=== PATIENT | male | born 1950 | race Hispanic/Latino ===

== ENCOUNTER 2016-07-16 21:08 | Emergency (ER) | payer MEDICARE, MEDICAID ==
[2016-07-16 21:08] VITALS: BMI 21.2
[2016-07-16 21:24] VITALS: BP 121/79; PULSE 84; RESP 16; TEMP 98.2; O2SAT 99
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
== END 2016-07-16 23:37 | disposition home or self-care (01) ==
LOC: H.ER 21:08
DX: M25.511 Pain in right shoulder (principal); G89.29 Other chronic pain; C90.00 Multiple myeloma not having achieved remission; Z71.6 Tobacco abuse counseling
CPT/HCPCS: 96372; 99282; J1885

== ENCOUNTER 2016-07-17 16:51 | Emergency (ER) | payer MEDICARE ==
[2016-07-17 16:51] VITALS: BMI 21.2
[2016-07-17 16:56] VITALS: BP 136/85; PULSE 90; RESP 18; TEMP 98.2; O2SAT 99
--- NOTE | 2016-07-17 17:25 | ED PDOC ---
Upper Extremity Pain/Injury Time Seen by Provider: 07/17/16 17:11 Chief Complaint (Nursing): Upper Extremity Problem/Injury Chief Complaint (Provider): shoulder injury History Per: Patient History/Exam Limitations: no limitations Additional Complaint(s): 65yo M in ED with injury to right shoulder(chronic pain) was seen in ED yesterday for same complaints and Rx and given in ED torodol. admit to having relief but today pain worsened. PT was refereed to pain mgnt, but has not made an appt. pt states she is homeless. denies additional complaints. Past Medical History Reviewed: Historical Data, Nursing Documentation, Vital Signs Vital Signs: Last Vital Signs Temp 98.2 F 07/17/16 16:53 Pulse 90 07/17/16 16:53 Resp 18 07/17/16 16:53 BP 136/85 07/17/16 16:53 Pulse Ox 99 07/17/16 16:53 - Medical History PMH: Back Problems, Bronchitis, COPD, Fractures (left scapula/left ribs), GERD, Chronic Pain Denies: HIV, Chronic Kidney Disease - Surgical History Surgical History: Hernia Repair - Family History Family History: States: Unknown Family Hx - Immunization History Hx Tetanus Toxoid Vaccination: Yes (more than 5 years ago) Hx Influenza Vaccination: No Hx Pneumococcal Vaccination: No - Home Medications Home Medications: Ambulatory Orders Medication Instructions Recorded Amoxicillin/Clavulanate [Augmentin 1 tab PO BID #20 tab 04/26/16 875 MG-125 MG Tab] oxyCODONE/Acetaminophen [Percocet 1 ea PO Q6 #20 tab 05/01/16 5/325 mg Tab] Meclizine [Antivert] 25 mg PO Q6 PRN #30 tab 05/25/16 traMADol [Ultram] 50 mg PO TID PRN #8 tab 07/16/16 Acetaminophen [Tylenol 325mg tab] 650 mg PO Q4 #30 tab 07/17/16 - Allergies Allergies/Adverse Reactions: Allergies Allergy/AdvReac Type Severity Reaction Status Date / Time No Known Allergies Allergy Verified 07/16/16 21:22 Review of Systems ROS Statement: Except As Marked, All Systems Reviewed And Found Negative Musculoskeletal: Positive for: Shoulder Pain Physical Exam - Reviewed Nursing Documentation Reviewed: Yes Vital Signs Reviewed: Yes - Physical Exam Appears: Positive for: Non-toxic, No Acute Distress, Uncomfortable Head Exam: Positive for: ATRAUMATIC, NORMAL INSPECTION, NORMOCEPHALIC Skin: Positive for: Normal Color, Warm, DRY Cardiovascular/Chest: Positive for: Regular Rate, Rhythm Respiratory: Positive for: CNT, Normal Breath Sounds Extremity: Positive for: Other (right shoulder. dec ROM due to pain, no swelling noted no defomrity noted. no clavicular tenderness noted. axillary nerve intact. no significant weakness noted to arm. ) Neurologic/Psych: Positive for: Alert, Oriented - ECG O2 Sat by Pulse Oximetry: 99 Medical Decision Making Medical Decision Making: pt given Tylenol and Rx for it. Pt advised to f.u with pain mgnt and continue f.u with pmd given endocrinology physician contact and strongly advised to f.u with orthopedics. pt seems to understand and is agreeable to plan. Disposition - Clinical Impression Clinical Impression: Shoulder pain - Patient ED Disposition Is Patient to be Admitted: No Counseled Patient/Family Regarding: Diagnosis, Need For Followup, Rx Given - Disposition Referrals: [facility] [place] [Outside] [facility] [Outside] [facility] [Provider Group] [facility] [Provider Group] Disposition: Routine/Home Disposition Time: 17:35 Condition: STABLE Prescriptions: Acetaminophen [Tylenol 325mg tab] 650 mg PO Q4 #30 tab Instructions: Shoulder Pain (ED)
== END 2016-07-17 19:29 | disposition home or self-care (01) ==
LOC: H.ER 16:51
DX: M25.511 Pain in right shoulder (principal)

== ENCOUNTER 2016-11-09 21:05 | Observation (INO) | payer MEDICARE, MEDICAID ==
[2016-11-09 21:05] VITALS: BMI 21.2
[2016-11-09] MEDS ORDERED: Morphine 4 MG/ML VIAL IVP STA (21:41)
[2016-11-09] MEDS ORDERED: Sodium Chloride 0.9% 100 ML ONE (21:46)
[2016-11-09] MEDS ORDERED: Iodixanol 320 MG/ML 100 ML BOTTLE IV ONE (21:46)
[2016-11-09 22:03] LABS: BASO % 0.3 % (0.0-2.0); EOS # 0.3 K/uL (0.0-0.7); EOS % 4.2 % (0.0-4.0); HEMOGLOBIN 12.9 g/dL (12.0-18.0); LYMPH # 2.6 K/uL (1.0-4.3); LYMPH % 39.6 % (20.0-40.0); MEAN CELL VOLUME 99.4 fl (80.0-94.0); MEAN CORPUSCULAR HEMOGLOBIN 32.7 pg (27.0-31.0); MEAN CORPUSCULAR HGB CONC 32.9 g/dL (33.0-37.0); MONO # 1.2 K/uL (0.0-0.8); MONO % 18.8 % (0.0-10.0); NEUT # 2.4 K/uL (1.8-7.0); NEUT % 37.1 % (50.0-75.0); NRBC % 0.1 % (0.0-0.0); RBC 3.95 Mil/uL (4.40-5.90); RED CELL DISTRIBUTION WIDTH 14.3 % (11.5-14.5); WHITE BLOOD COUNT 6.5 K/uL (4.8-10.8)
--- NOTE | 2016-11-09 22:14 | ED PDOC ---
HPI: Chest Pain Time Seen by Provider: 11/09/16 21:17 Chief Complaint (Nursing): Chest Pain Chief Complaint (Provider): Chest Pain History Per: Patient History/Exam Limitations: no limitations Onset/Duration Of Symptoms: Days (x1 day) Current Symptoms Are (Timing): Still Present Additional Complaint(s): 66 y/o male with a past medical history of "abdominal aortic aneurysm" and " bone disorder" who presents to the emergency department with a complaint of an on/off chest pain x1 day. Associated with shortness of breath. Reports chest pain is non exertional and non-radiating. Patient is also complaining of bone pain which is chronic. Admits to smoking 10 cigarettes a day for the past 50 years. Denies any further medical complaints. Past Medical History Reviewed: Historical Data, Nursing Documentation, Vital Signs Vital Signs: Last Vital Signs Temp 97.5 F L 11/10/16 12:12 Pulse 60 11/10/16 12:12 Resp 20 11/10/16 12:12 BP 125/73 11/10/16 12:12 Pulse Ox 100 11/10/16 12:12 - Medical History PMH: Back Problems, Bronchitis, COPD, Fractures (left scapula/left ribs), GERD, Chronic Pain Denies: HIV, Chronic Kidney Disease Other PMH: Aortic Aneurysm and bone disorder - Surgical History Surgical History: Hernia Repair - Family History Family History: States: Unknown Family Hx - Social History Current smoker - smoking cessation education provided: Yes (Heavy Smoker >10 cigarettes daily) Alcohol: None Drugs: Denies - Immunization History Hx Tetanus Toxoid Vaccination: Yes (more than 5 years ago) Hx Influenza Vaccination: No Hx Pneumococcal Vaccination: No - Home Medications Home Medications: Ambulatory Orders Medication Instructions Recorded No Known Home Med 11/10/16 - Allergies Allergies/Adverse Reactions: Allergies Allergy/AdvReac Type Severity Reaction Status Date / Time No Known Allergies Allergy Verified 07/16/16 21:22 Review of Systems ROS Statement: Except As Marked, All Systems Reviewed And Found Negative Cardiovascular: Positive for: Chest Pain Respiratory: Positive for: Shortness of Breath Musculoskeletal: Positive for: Other (Bone pain) Physical Exam - Reviewed Nursing Documentation Reviewed: Yes Vital Signs Reviewed: Yes - Physical Exam Appears: Positive for: Non-toxic (Ill appearing and thin), No Acute Distress. Negative for: Well Head Exam: Positive for: ATRAUMATIC, NORMAL INSPECTION, NORMOCEPHALIC Skin: Positive for: Normal Color, Warm, Dry ENT: Positive for: Normal ENT Inspection. Negative for: Pharyngeal Erythema Neck: Positive for: Normal, Supple Cardiovascular/Chest: Positive for: Regular Rate, Rhythm. Negative for: Murmur Respiratory: Positive for: Normal Breath Sounds. Negative for: Accessory Muscle Use, Respiratory Distress Gastrointestinal/Abdominal: Positive for: Normal Exam, Soft. Negative for: Tenderness Back: Positive for: Normal Inspection. Negative for: L CVA Tenderness, R CVA Tenderness Extremity: Positive for: Normal ROM. Negative for: Pedal Edema Neurologic/Psych: Positive for: Alert, Oriented - Laboratory Results Result Diagrams: 11/09/16 21:45 11/09/16 21:45 - ECG O2 Sat by Pulse Oximetry: 99 (RA) Pulse Ox Interpretation: Normal Medical Decision Making Medical Decision Making: Time: 21:41 Initial Impression: Acute coronary syndrome (ACS) and Abdominal aortic Aneurysm Initial Plan: --EKG --BMP --Drug Screen --Troponin I --PTT Prothrombin --Morphine 4 mg IVP --Supervisor [employer] --Angio Chest/Abdomen/Pelvis CT --Reevaluation 0000: CT: no acute pathology seen, given age and smoking, will admit for r/o ACS. Case d/w FP resident Dr. Mederos Scribe Attestation: Documented by Juhi Green, acting as a scribe for Baltazar Soto MD. Provider Scribe Attestation: All medical record entries made by the Scribe were at my direction and personally dictated by me. I have reviewed the chart and agree that the record accurately reflects my personal performance of the history, physical exam, medical decision making, and the department course for this patient. I have also personally directed, reviewed, and agree with the discharge instructions and disposition. Disposition - Clinical Impression Clinical Impression: Chest pain - Disposition Disposition Time: 00:00 Condition: GOOD
[2016-11-09 22:21] LABS: BLOOD UREA NITROGEN 27 mg/dl (9-20); CALCIUM 8.8 mg/dL (8.4-10.2); GFR AFRICAN-AMERICAN > 60; GFR NON-AFRICAN AMERICAN > 60
[2016-11-09 22:22] LABS: PROTHROMBIN TIME 12.2 Seconds (9.8-13.1)
[2016-11-09 22:23] LABS: INR 1.1 (0.9-1.2); PARTIAL THROMBOPLASTIN TIME 27.1 Seconds (25.6-37.1)
--- NOTE | 2016-11-10 01:53 | CT ---
EXAM: CT Angiography Chest With Intravenous Contrast CLINICAL HISTORY: 66 years old, male; Pain; Chest pain; Radiating; Abdominal pain; Other: HX of aaa; Additional info: HX of aortic aneurysm p/w cp and SOB TECHNIQUE: Axial computed tomographic angiography images of the chest with intravenous contrast using pulmonary embolism protocol. This CT exam was performed using one or more of the following dose reduction techniques: automated exposure control, adjustment of the mA and/or kV according to patient size, and/or use of iterative reconstruction technique. MIP reconstructed images were created and reviewed. Coronal and sagittal reformatted images were created and reviewed. CONTRAST: 99 mL of [id number] administered intravenously. COMPARISON: CT - 04/10/2016 FINDINGS: Limitations: Motion artifact - mild to moderate. Pulmonary arteries: No definite pulmonary embolism. Aorta: Ectasia of ascending thoracic aorta, up to 4.2 cm in diameter, stable. No dissection. Lungs: Mild peripheral atelectasis/scarring. No consolidation. Pleural space: No significant effusion. No pneumothorax. Heart: No cardiomegaly. No significant pericardial effusion. Bones/joints: RIGHT shoulder arthroplasty. Deformities of superior endplate T4, T12 vertebral bodies, chronic. No acute fracture. Soft tissues: Unremarkable. Lymph nodes: No pathologically enlarged lymph nodes. IMPRESSION: 1. Ectasia of thoracic aorta, stable. No dissection. 2. Incidental/non-acute findings are described above. EXAM: CT Angiography Abdomen and Pelvis With Intravenous Contrast CLINICAL HISTORY: 66 years old, male; Pain; Chest pain; Radiating; Abdominal pain; Other: HX of aaa; Additional info: HX of aortic aneurysm p/w cp and SOB TECHNIQUE: Axial computed tomographic angiography images of the abdomen and pelvis with intravenous contrast. This CT exam was performed using one or more of the following dose reduction techniques: automated exposure control, adjustment of the mA and/or kV according to patient size, and/or use of iterative reconstruction technique. MIP reconstructed images were created and reviewed. Coronal and sagittal reformatted images were created and reviewed. CONTRAST: 99 mL of [id number] administered intravenously. COMPARISON: CT - 04/10/2016 FINDINGS: Limitations: Motion artifact - mild. VASCULATURE: Aorta: [id number] atherosclerotic disease. No aneurysm. No dissection. Celiac trunk and mesenteric arteries: No occlusion or significant stenosis. Renal arteries: Mild atherosclerotic disease. No occlusion or significant stenosis. Iliac arteries: Moderate atherosclerotic disease of iliac arteries. No occlusion or significant stenosis. Other vasculature: Retroaortic LEFT renal vein. ABDOMEN: Liver: Unremarkable. No mass. Gallbladder and bile ducts: No calcified stones. No ductal dilation. Pancreas: No ductal dilation. No mass. Spleen: No splenomegaly. Adrenals: No mass. Kidneys and ureters: Few too small to characterize lesions within kidneys. Several renal calculi. No hydronephrosis. Stomach and bowel: Apparent mild mural thickening of several jejunal loops. No associated inflammatory stranding. Segmental areas of underdistention of LEFT colon. No obstruction. Appendix: No definite findings to suggest acute appendicitis. PELVIS: Bladder: Unremarkable. No mass. Reproductive: Mildly enlarged prostate. ABDOMEN and PELVIS: Intraperitoneal space: No significant fluid collection. No free air. Bones/joints: Degenerative changes of spine. Deformities of superior endplate L1, inferior endplate L3 vertebral bodies, chronic. No acute fracture. Soft tissues: Unremarkable. Lymph nodes: No pathologically enlarged lymph nodes. IMPRESSION: 1. No abdominal aortic aneurysm. No dissection. 2. Possible mild enteritis. Clinical correlation is needed. 3. Incidental/non-acute findings are described above.
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
[2016-11-10 04:49] LABS: HDL CHOLESTEROL 26 MG/DL (30-70)
[2016-11-10 04:51] LABS: LDL CHOLESTEROL 93 mg/dL (0-129)
[2016-11-10 05:10] LABS: OPIATES, UR POSITIVE (NEGATIVE)
[2016-11-10 05:11] LABS: PHENCYCLIDINE, UR NEGATIVE (NEGATIVE)
[2016-11-10 05:12] LABS: BARBITURATES, UR NEGATIVE (NEGATIVE)
[2016-11-10 05:13] LABS: BENZODIAZEPINES, UR NEGATIVE (NEGATIVE)
[2016-11-10] MEDS ORDERED: Enoxaparin 40 mg Syringe SC SCH (09:00)
[2016-11-10] MEDS ORDERED: Pantoprazole 40 mg EC Tab PO SCH (09:00)
--- NOTE | 2016-11-10 10:49 | CP.PCM.CON ---
History of Present Illness - History of Present Illness History of Present Illness: 66 y/o male with a PMHx of Hep C, bronchitis, glaucoma, and precancerous bone marrow disease presented to [facility] ED with a 1 day history of chest pain and SOB. Pt reports he was resting when he felt it begin. Pain is located along the left sternal border, between Ribs 3-5 and is nonradiating. intermittent (episodes last ~2mins), sharp in character, does not change with respiration/position and does not have any alleviating or exacerbating factors. This is first such episode of such pain. Denies exertional chest pain. He is pain free this AM EKG: normal Troponin: neg Past Patient History - Infectious Disease Hx of Infectious Diseases: None - Past Medical History & Family History Past Medical History?: Yes - Past Social History Smoking Status: Light Smoker < 10 Cigarettes Daily - CARDIAC Hx Cardiac Disorders: No - PULMONARY Hx Respiratory Disorders: Yes Hx Bronchitis: Yes Hx Chronic Obstructive Pulmonary Disease (COPD): Yes - NEUROLOGICAL Hx Neurological Disorder: Yes - HEENT Hx Blind: Yes (LEFT EYE, DUE TO TRAUMA) Hx Glaucoma: Yes - RENAL Hx Chronic Kidney Disease: No - ENDOCRINE/METABOLIC Hx Endocrine Disorders: No - HEMATOLOGICAL/ONCOLOGICAL Hx Blood Disorders: No Hx AIDS: No Hx Human Immunodeficiency Virus (HIV): No - INTEGUMENTARY Hx Dermatological Problems: No - MUSCULOSKELETAL/RHEUMATOLOGICAL Hx Musculoskeletal Disorders: Yes Hx Falls: Yes Hx Fractures: Yes (left scapula/left ribs) - GASTROINTESTINAL Hx Gastrointestinal Disorders: No - GENITOURINARY/GYNECOLOGICAL Hx Genitourinary Disorders: No - PSYCHIATRIC Hx Psychophysiologic Disorder: No Hx Substance Use: No - SURGICAL HISTORY Hx Surgeries: Yes Hx Herniorrhaphy: Yes Other/Comment: "HERNIA". "ROTATOR REPAIRED". SKULL FX - ANESTHESIA Hx Anesthesia: Yes Hx Anesthesia Reactions: No Hx Malignant Hyperthermia: No Meds Allergies/Adverse Reactions: Allergies Allergy/AdvReac Type Severity Reaction Status Date / Time No Known Allergies Allergy Verified 07/16/16 21:22 - Medications Medications: Current Medications Acetaminophen (Tylenol 325mg Tab) 650 mg PO Q6 PRN PRN Reason: Pain, Mild (1-3) Enoxaparin Sodium (Lovenox) 40 mg SC DAILY AURELIO PRN Reason: Protocol Last Admin: 11/10/16 09:49 Dose: 40 mg Ondansetron HCl (Zofran Inj) 4 mg IVP Q6 PRN PRN Reason: Nausea/Vomiting Pantoprazole Sodium (Protonix Ec Tab) 40 mg PO DAILY AURELIO Last Admin: 11/10/16 09:49 Dose: 40 mg Tramadol HCl (Ultram) 50 mg PO Q6 PRN PRN Reason: Pain, moderate (4-7) Last Admin: 11/10/16 09:58 Dose: 50 mg Physical Exam - Constitutional Appears: Well - Head Exam Head Exam: NORMAL INSPECTION - Eye Exam Eye Exam: Normal appearance Pupil Exam: NORMAL ACCOMODATION - ENT Exam ENT Exam: Normal Exam - Respiratory Exam Respiratory Exam: NORMAL BREATHING PATTERN - Cardiovascular Exam Cardiovascular Exam: REGULAR RHYTHM Results - Vital Signs Recent Vital Signs: Last Vital Signs Temp 97.7 F 11/10/16 08:02 Pulse 55 L 11/10/16 08:02 Resp 18 11/10/16 08:02 BP 119/72 11/10/16 08:02 Pulse Ox 97 11/10/16 08:02 - Labs Result Diagrams: 11/09/16 21:45 11/09/16 21:45 Labs: Laboratory Results - last 24 hr 11/10/16 11/10/16 04:30 04:54 Troponin I < 0.0120 Triglycerides 69 D Cholesterol 137 LDL Cholesterol Direct 93 HDL Cholesterol 26 L Urine Opiates Screen Positive H Urine Methadone Screen Negative Ur Barbiturates Screen Negative Ur Phencyclidine Scrn Negative Ur Amphetamines Screen Negative U Benzodiazepines Scrn Negative U Oth Cocaine Metabols Negative U Cannabinoids Screen Negative Assessment & Plan (1) Atypical chest pain Assessment and Plan: Pain seems to be non cardiac in origin he may be discharged for out pt f/u Status: Acute
--- NOTE | 2016-11-10 11:28 | CARD ---
APPROVED REPORT EKG Measurement Heart [id number] [place] 160P27 [id number] <Conclusion> Normal sinus rhythm Normal ECG
--- NOTE | 2016-11-10 11:47 | CP.PCM.DIS ---
<Janie Suarez - Last Filed: 11/10/16 11:45> Provider - Provider Date of Admission: 11/10/16 02:09 Attending physician: Risa Cochran MD Time Spent in preparation of Discharge (in minutes): 20 Diagnosis - Discharge Diagnosis (1) Chest pain, rule out acute myocardial infarction Status: Resolved Priority: High Hospital Course - Lab Results Lab Results: Most Recent Lab Values WBC 6.5 K/uL (4.8-10.8) 11/09/16 21:45 RBC 3.95 Mil/uL (4.40-5.90) L 11/09/16 21:45 Hgb 12.9 g/dL (12.0-18.0) 11/09/16 21:45 Hct 39.2 % (35.0-51.0) 11/09/16 21:45 MCV 99.4 fl (80.0-94.0) H 11/09/16 21:45 MCH 32.7 pg (27.0-31.0) H 11/09/16 21:45 MCHC 32.9 g/dL (33.0-37.0) L 11/09/16 21:45 RDW 14.3 % (11.5-14.5) 11/09/16 21:45 Plt Count 315 K/uL (130-400) 11/09/16 21:45 MPV 8.0 fl (7.2-11.7) 11/09/16 21:45 Neut % (Auto) 37.1 % (50.0-75.0) L 11/09/16 21:45 Lymph % (Auto) 39.6 % (20.0-40.0) 11/09/16 21:45 Bradley % (Auto) 18.8 % (0.0-10.0) H 11/09/16 21:45 Eos % (Auto) 4.2 % (0.0-4.0) H 11/09/16 21:45 Baso % (Auto) 0.3 % (0.0-2.0) 11/09/16 21:45 Neut # 2.4 K/uL (1.8-7.0) 11/09/16 21:45 Lymph # 2.6 K/uL (1.0-4.3) 11/09/16 21:45 Bradley # 1.2 K/uL (0.0-0.8) H 11/09/16 21:45 Eos # 0.3 K/uL (0.0-0.7) 11/09/16 21:45 Baso # 0.0 K/uL (0.0-0.2) 11/09/16 21:45 PT 12.2 Seconds (9.8-13.1) 11/09/16 21:45 INR 1.1 (0.9-1.2) 11/09/16 21:45 APTT 27.1 Seconds (25.6-37.1) 11/09/16 21:45 Sodium 141 mmol/l (132-148) 11/09/16 21:45 Potassium 4.2 MMOL/L (3.6-5.0) 11/09/16 21:45 Chloride 108 mmol/L (98-107) H 11/09/16 21:45 Carbon Dioxide 24 mmol/L (22-30) 11/09/16 21:45 Anion Gap 13 (10-20) 11/09/16 21:45 BUN 27 mg/dl (9-20) H 11/09/16 21:45 Creatinine 1.2 mg/dL (0.8-1.5) 11/09/16 21:45 Est GFR ( Amer) > 60 11/09/16 21:45 Est GFR (Non-Af Amer) > 60 11/09/16 21:45 Random Glucose 117 mg/dL (75-110) H 11/09/16 21:45 Calcium 8.8 mg/dL (8.4-10.2) 11/09/16 21:45 Troponin I < 0.0120 ng/mL (0.00-0.120) 11/10/16 04:30 Triglycerides 69 mg/DL (0-149) D 11/10/16 04:30 Cholesterol 137 mg/dL (0-199) 11/10/16 04:30 LDL Cholesterol Direct 93 mg/dL (0-129) 11/10/16 04:30 HDL Cholesterol 26 MG/DL (30-70) L 11/10/16 04:30 Urine Opiates Screen Positive (NEGATIVE) H 11/10/16 04:54 Urine Methadone Screen Negative (NEGATIVE) 11/10/16 04:54 Ur Barbiturates Screen Negative (NEGATIVE) 11/10/16 04:54 Ur Phencyclidine Scrn Negative (NEGATIVE) 11/10/16 04:54 Ur Amphetamines Screen Negative (NEGATIVE) 11/10/16 04:54 U Benzodiazepines Scrn Negative (NEGATIVE) 11/10/16 04:54 U Oth Cocaine Metabols Negative (NEGATIVE) 11/10/16 04:54 U Cannabinoids Screen Negative (NEGATIVE) 11/10/16 04:54 - Hospital Course Hospital Course: Pt was admitted for observation for ACS rule out [place], trops negative, was seen and evaluated by cardiology who has cleared him for discharge as well. Cardiology input appreciate. Pt advised to follow up outpatient. Discharge Exam - Head Exam Head Exam: NORMAL INSPECTION - Eye Exam Eye Exam: Normal appearance - ENT Exam ENT Exam: Mucous Membranes Moist - Respiratory Exam Respiratory Exam: NORMAL BREATHING PATTERN - Cardiovascular Exam Cardiovascular Exam: REGULAR RHYTHM, +S1, +S2 - GI/Abdominal Exam GI & Abdominal Exam: Normal Bowel Sounds, Soft. absent: Tenderness - Extremities Exam Extremities exam: normal inspection - Neurological Exam Neurological exam: Alert, CN II-XII Intact, Oriented x3 Discharge Plan - Follow Up Plan Condition: GOOD Disposition: HOME/ ROUTINE Instructions: Chest Pain (DC), Costochondritis (DC), Noncardiac Chest Pain (DC) Additional Instructions: Please make sure to call tomorrow morning for an appt with your PCP , the number to call is [phone] Please given your self reported history of bone cancer, a referral for Heme/ONC has been given, please follow with your PCP for further work up as outpatient Referrals: Giovanni Marmolejo MD [Staff Provider] - <Risa Cochran - Last Filed: 11/11/16 10:24> Provider - Provider Date of Admission: 11/10/16 02:09 Attending physician: Risa Cochran MD Hospital Course - Lab Results Lab Results: Most Recent Lab Values WBC 6.5 K/uL (4.8-10.8) 11/09/16 21:45 RBC 3.95 Mil/uL (4.40-5.90) L 11/09/16 21:45 Hgb 12.9 g/dL (12.0-18.0) 11/09/16 21:45 Hct 39.2 % (35.0-51.0) 11/09/16 21:45 MCV 99.4 fl (80.0-94.0) H 11/09/16 21:45 MCH 32.7 pg (27.0-31.0) H 11/09/16 21:45 MCHC 32.9 g/dL (33.0-37.0) L 11/09/16 21:45 RDW 14.3 % (11.5-14.5) 11/09/16 21:45 Plt Count 315 K/uL (130-400) 11/09/16 21:45 MPV 8.0 fl (7.2-11.7) 11/09/16 21:45 Neut % (Auto) 37.1 % (50.0-75.0) L 11/09/16 21:45 Lymph % (Auto) 39.6 % (20.0-40.0) 11/09/16 21:45 Bradley % (Auto) 18.8 % (0.0-10.0) H 11/09/16 21:45 Eos % (Auto) 4.2 % (0.0-4.0) H 11/09/16 21:45 Baso % (Auto) 0.3 % (0.0-2.0) 11/09/16 21:45 Neut # 2.4 K/uL (1.8-7.0) 11/09/16 21:45 Lymph # 2.6 K/uL (1.0-4.3) 11/09/16 21:45 Bradley # 1.2 K/uL (0.0-0.8) H 11/09/16 21:45 Eos # 0.3 K/uL (0.0-0.7) 11/09/16 21:45 Baso # 0.0 K/uL (0.0-0.2) 11/09/16 21:45 PT 12.2 Seconds (9.8-13.1) 11/09/16 21:45 INR 1.1 (0.9-1.2) 11/09/16 21:45 APTT 27.1 Seconds (25.6-37.1) 11/09/16 21:45 Sodium 141 mmol/l (132-148) 11/09/16 21:45 Potassium 4.2 MMOL/L (3.6-5.0) 11/09/16 21:45 Chloride 108 mmol/L (98-107) H 11/09/16 21:45 Carbon Dioxide 24 mmol/L (22-30) 11/09/16 21:45 Anion Gap 13 (10-20) 11/09/16 21:45 BUN 27 mg/dl (9-20) H 11/09/16 21:45 Creatinine 1.2 mg/dL (0.8-1.5) 11/09/16 21:45 Est GFR ( Amer) > 60 11/09/16 21:45 Est GFR (Non-Af Amer) > 60 11/09/16 21:45 Random Glucose 117 mg/dL (75-110) H 11/09/16 21:45 Calcium 8.8 mg/dL (8.4-10.2) 11/09/16 21:45 Troponin I < 0.0120 ng/mL (0.00-0.120) 11/10/16 04:30 Triglycerides 69 mg/DL (0-149) D 11/10/16 04:30 Cholesterol 137 mg/dL (0-199) 11/10/16 04:30 LDL Cholesterol Direct 93 mg/dL (0-129) 11/10/16 04:30 HDL Cholesterol 26 MG/DL (30-70) L 11/10/16 04:30 Urine Opiates Screen Positive (NEGATIVE) H 11/10/16 04:54 Urine Methadone Screen Negative (NEGATIVE) 11/10/16 04:54 Ur Barbiturates Screen Negative (NEGATIVE) 11/10/16 04:54 Ur Phencyclidine Scrn Negative (NEGATIVE) 11/10/16 04:54 Ur Amphetamines Screen Negative (NEGATIVE) 11/10/16 04:54 U Benzodiazepines Scrn Negative (NEGATIVE) 11/10/16 04:54 U Oth Cocaine Metabols Negative (NEGATIVE) 11/10/16 04:54 U Cannabinoids Screen Negative (NEGATIVE) 11/10/16 04:54 Discharge Exam - Additional Findings Additional findings: ATTENDING NOTE - ADDENDUM Patient seen and examined. Case discussed with resident. Agree with findings and plan.
[2016-11-10 12:13] VITALS: BP 125/73; PULSE 60; RESP 20; TEMP 97.5
[2016-11-10 19:13] VITALS: O2SAT 99
== END 2016-11-10 13:45 | disposition home or self-care (01) ==
LOC: H.ER 21:05 → UNDOADMOB 11-10 02:09 → H.ERHOLD 11-10 02:09 → H.TEL 11-10 05:07
PROVIDERS: ADMIT Emergency Medicine; ATTEND Emergency Medicine
DX: R07.89 Other chest pain (principal); I24.9 Acute ischemic heart disease, unspecified; G89.29 Other chronic pain; J44.9 Chronic obstructive pulmonary disease, unspecified; K21.9 Gastro-esophageal reflux disease without esophagitis; M89.9 Disorder of bone, unspecified; J40 Bronchitis, not specified as acute or chronic; H54.42 Blindness, left eye, normal vision right eye; H40.9 Unspecified glaucoma; F17.210 Nicotine dependence, cigarettes, uncomplicated; Z86.19 Personal history of other infectious and parasitic diseases
CPT/HCPCS: 71270; 74175; 80048; 80061; 84484; 85025; 85610; 85730; 93005; 96374; 99282; G0378; G0480; J1650; Q9967

== ENCOUNTER 2017-03-20 08:31 | Emergency (ER) | payer MEDICARE, MEDICAID ==
[2017-03-20 08:38] VITALS: BP 122/83; PULSE 106; RESP 18; BMI 22.9
[2017-03-20 08:43] VITALS: O2SAT 98
[2017-03-20] MEDS ORDERED: Oxycodone/Acetaminophen 5/325 mg Tab PO STA (09:16)
[2017-03-20 09:47] LABS: BASO # 0.1 K/uL (0.0-0.2); BASO % 1.2 % (0.0-2.0); EOS # 0.1 K/uL (0.0-0.7); EOS % 1.3 % (0.0-4.0); HEMATOCRIT 45.9 % (35.0-51.0); LYMPH # 1.9 K/uL (1.0-4.3); LYMPH % 30.2 % (20.0-40.0); MEAN CELL VOLUME 101.5 fl (80.0-94.0); MEAN CORPUSCULAR HEMOGLOBIN 34.7 pg (27.0-31.0); MEAN CORPUSCULAR HGB CONC 34.2 g/dL (33.0-37.0); MEAN PLATELET VOLUME 7.6 fl (7.2-11.7); MONO # 0.8 K/uL (0.0-0.8); MONO % 12.3 % (0.0-10.0); NEUT # 3.5 K/uL (1.8-7.0); NRBC % 0.1 % (0.0-0.0); RED CELL DISTRIBUTION WIDTH 13.1 % (11.5-14.5); WHITE BLOOD COUNT 6.3 K/uL (4.8-10.8)
--- NOTE | 2017-03-20 09:50 | ED PDOC ---
HPI: Trauma/Fall - HPI Time Seen by Provider: 03/20/17 09:07 Chief Complaint (Nursing): Headache Chief Complaint (Provider): Headache History Per: Patient History/Exam Limitations: no limitations Onset/Duration Of Symptoms: Hrs (x1) Injury Occurred (Timing): Hours Ago: (x1) Location Of Injury: Right: Hand, Left: Head Severity: Mild Pain Scale Rating Of: 5 Associated Symptoms: Dizziness (before fall), LOC (after fall) Additional History Per: EMS Additional Complaint(s): Sanford Bah is a 66 year old male, with a mast medical history of bone cancer and hepatitis C, who was brought to the emergency department by EMS for left side head abrasion and right hand abrasion s/p fall onset 1 hour ago. Patient states that he felt dizzy and fell in front of the [facility]. Patient reports loss of consciousness after the fall. He denies any other medical complaints. PMD: None provided. Past Medical History Reviewed: Historical Data, Nursing Documentation, Vital Signs Vital Signs: Last Vital Signs Temp Pulse 106 H 03/20/17 08:37 Resp 18 03/20/17 08:37 BP 122/83 03/20/17 08:37 Pulse Ox 98 03/20/17 10:56 - Medical History PMH: Back Problems, Bronchitis, COPD, Fractures (left scapula/left ribs), GERD, Chronic Pain Denies: HIV, Chronic Kidney Disease - Surgical History Surgical History: Hernia Repair - Family History Family History: States: Unknown Family Hx - Social History Current smoker - smoking cessation education provided: Yes (light smoker <10 cigarettes daily) Alcohol: None Drugs: Denies - Immunization History Hx Tetanus Toxoid Vaccination: Yes (more than 5 years ago) Hx Influenza Vaccination: No Hx Pneumococcal Vaccination: No - Home Medications Home Medications: Ambulatory Orders Medication Instructions Recorded Naproxen [Naprosyn] 500 mg PO Q12 #14 tab 03/27/17 - Allergies Allergies/Adverse Reactions: Allergies Allergy/AdvReac Type Severity Reaction Status Date / Time No Known Allergies Allergy Verified 03/20/17 08:40 Review of Systems ROS Statement: Except As Marked, All Systems Reviewed And Found Negative Musculoskeletal: Positive for: Hand Pain (right hand abrasion), Other (left side head abrasion) Neurological: Positive for: Dizziness (before fall), Other (LOC after fall) Physical Exam - Reviewed Nursing Documentation Reviewed: Yes Vital Signs Reviewed: Yes - Physical Exam Appears: Positive for: Non-toxic Head Exam: Positive for: NORMAL INSPECTION, NORMOCEPHALIC. Negative for: ATRAUMATIC (abrasion on left-side occipital) Skin: Positive for: Normal Color, Warm, Dry Eye Exam: Positive for: Normal appearance, EOMI (on right eye. 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 Negative for: Murmur Respiratory: Positive for: Normal Breath Sounds. Negative for: Respiratory Distress Gastrointestinal/Abdominal: Positive for: Soft. Negative for: Tenderness Extremity: Positive for: Normal ROM, Swelling (right fifth digit), Other ( abrasion on right fifth digit, and pain on dorsum of right hand.) Neurologic/Psych: Positive for: Alert, Oriented. Negative for: Motor/Sensory Deficits - Laboratory Results Result Diagrams: 03/20/17 09:41 03/20/17 09:41 - ECG O2 Sat by Pulse Oximetry: 98 (RA) Pulse Ox Interpretation: Normal Medical Decision Making Medical Decision Making: Initial Impression: left side occipital and right fifth digit abrasion s/p fall Initial Plan: --Head w/o contrast [CT] --EKG --Basic Metabolic Panel --CBC w/ differential --Percocet 5/325 mg Tab 1 tab PO --Hand Right 3 views [RAD] --reevaluation 1003 Hand X-Ray FINDINGS: BONES: Old 5th metacarpal fracture. No acute fracture. JOINTS: Degenerative changes. SOFT TISSUES: Mild swelling of the 5th digit. OTHER FINDINGS: None. IMPRESSION: Old 5th metacarpal fracture. No demonstrated acute fracture or dislocation. Degenerative changes. [address] FINDINGS: HEMORRHAGE: No intracranial hemorrhage. BRAIN: No mass effect or edema. Mild atrophy and chronic microvascular ischemic changes. VENTRICLES: Unremarkable. No hydrocephalus. CALVARIUM: Chronic deformity of left facial bones. PARANASAL SINUSES: Right frontal sinus secretions. Scattered mucosal thickening of the remaining sinuses. MASTOID AIR CELLS: Unremarkable as visualized. No inflammatory changes. OTHER FINDINGS: Left phthisis bulbi. IMPRESSION: No acute intracranial pathology. Scribe Attestation: Documented by Simba Olivia, acting as a scribe for Shasha Narayan MD Provider Scribe Attestation: All medical record entries made by the Scribe were at my direction and personally dictated by me. I have reviewed the chart and agree that the record accurately reflects my personal performance of the history, physical exam, medical decision making, and the department course for this patient. I have also personally directed, reviewed, and agree with the discharge instructions and disposition. Disposition - Clinical Impression Clinical Impression: Head injury, Contusion, hand - Patient ED Disposition Is Patient to be Admitted: No Counseled Patient/Family Regarding: Studies Performed, Diagnosis, Need For Followup - Disposition Referrals: [facility] [Outside] Disposition: Routine/Home (1) Disposition Time: 11:30 Condition: GOOD Additional Instructions: Follow up with your PCP in 2-3 days. Instructions: Head Injury (ED), Hand Sprain (ED)
--- NOTE | 2017-03-20 10:05 | RAD ---
PROCEDURE: Right Hand Radiographs. HISTORY: right hand injury pain COMPARISON: None. FINDINGS: BONES: Old 5th metacarpal fracture. No acute fracture. JOINTS: Degenerative changes. SOFT TISSUES: Mild swelling of the 5th digit. OTHER FINDINGS: None. IMPRESSION: Old 5th metacarpal fracture. No demonstrated acute fracture or dislocation. Degenerative changes.
[2017-03-20] MEDS ORDERED: Oxycodone/Acetaminophen 5/325 mg Tab ONE (10:08)
[2017-03-20 10:09] LABS: BLOOD UREA NITROGEN 16 mg/dl (9-20); CALCIUM 8.7 mg/dL (8.4-10.2); CARBON DIOXIDE 25 mmol/L (22-30); CHLORIDE 112 mmol/L (98-107); GFR AFRICAN-AMERICAN > 60; GLUCOSE,RANDOM 89 mg/dL (75-110); POTASSIUM 3.9 MMOL/L (3.6-5.0); SODIUM 149 mmol/l (132-148)
--- NOTE | 2017-03-20 10:47 | CARD ---
APPROVED REPORT EKG Measurement Heart [id number] [place] 194P25 [id number] <Conclusion> Normal sinus rhythm Normal ECG
--- NOTE | 2017-03-20 10:54 | CT ---
PROCEDURE: CT HEAD WITHOUT CONTRAST. HISTORY: head injury COMPARISON: CT head dated 05/25/2016 TECHNIQUE: Axial computed tomography images were obtained through the head/brain without intravenous contrast. Radiation dose: Total exam DLP = 802.3 mGy-cm. This CT exam was performed using one or more of the following dose reduction techniques: Automated exposure control, adjustment of the mA and/or kV according to patient size, and/or use of iterative reconstruction technique. FINDINGS: HEMORRHAGE: No intracranial hemorrhage. BRAIN: No mass effect or edema. Mild atrophy and chronic microvascular ischemic changes. VENTRICLES: Unremarkable. No hydrocephalus. CALVARIUM: Chronic deformity of left facial bones. PARANASAL SINUSES: Right frontal sinus secretions. Scattered mucosal thickening of the remaining sinuses. MASTOID AIR CELLS: Unremarkable as visualized. No inflammatory changes. OTHER FINDINGS: Left phthisis bulbi. IMPRESSION: No acute intracranial pathology.
== END 2017-03-20 12:23 | disposition home or self-care (01) ==
LOC: H.ER 08:31
DX: S09.90XA Unspecified injury of head, initial encounter (principal); S60.221A Contusion of right hand, initial encounter; F17.210 Nicotine dependence, cigarettes, uncomplicated; G89.29 Other chronic pain; J44.9 Chronic obstructive pulmonary disease, unspecified

== ENCOUNTER 2017-03-27 20:10 | Emergency (ER) | payer MEDICARE, MEDICAID ==
[2017-03-27 20:11] VITALS: BMI 22.9
[2017-03-27 20:21] VITALS: TEMP 98.6; O2SAT 98
[2017-03-27 20:47] LABS: BASO # 0.1 K/uL (0.0-0.2); BASO % 1.4 % (0.0-2.0); EOS # 0.1 K/uL (0.0-0.7); EOS % 2.2 % (0.0-4.0); HEMATOCRIT 40.9 % (35.0-51.0); LYMPH # 1.6 K/uL (1.0-4.3); LYMPH % 29.6 % (20.0-40.0); MEAN CELL VOLUME 101.2 fl (80.0-94.0); MEAN CORPUSCULAR HGB CONC 33.6 g/dL (33.0-37.0); MEAN PLATELET VOLUME 7.8 fl (7.2-11.7); MONO # 0.6 K/uL (0.0-0.8); MONO % 11.7 % (0.0-10.0); NEUT % 55.1 % (50.0-75.0); RED CELL DISTRIBUTION WIDTH 12.8 % (11.5-14.5); WHITE BLOOD COUNT 5.5 K/uL (4.8-10.8)
[2017-03-27 20:58] LABS: POTASSIUM 3.9 MMOL/L (3.6-5.0)
[2017-03-27 20:59] LABS: ALKALINE PHOSPHATASE 86 U/L (38-126); ALT/SGPT 111 U/L (21-72); AST/SGOT 103 U/L (17-59); BILIRUBIN,TOTAL 1.3 mg/dl (0.2-1.3); BLOOD UREA NITROGEN 22 mg/dl (9-20); CARBON DIOXIDE 24 mmol/L (22-30); CHLORIDE 104 mmol/L (98-107); GFR AFRICAN-AMERICAN > 60; GLUCOSE,RANDOM 97 mg/dL (75-110); SODIUM 139 mmol/l (132-148); TOTAL PROTEIN 8.3 G/DL (6.3-8.2)
--- NOTE | 2017-03-27 21:15 | ED PDOC ---
Lower Extremity Pain/Injury Time Seen by Provider: 03/27/17 20:27 Chief Complaint (Nursing): Chest Pain Chief Complaint (Provider): Bilateral leg pain History Per: Patient History/Exam Limitations: no limitations Onset/Duration Of Symptoms: Days Additional Complaint(s): Patient is a 66 y/o male with a past medical history of COPD presenting to the emergency department for chronic bilateral leg pain that became worse over the past two days. Reports that the pain is diffuse but worse in his lower extremities. Furthermore, states that approximately a year ago he was informed that he may have an unspecified type of bone cancer and was instructed to follow up with a welder setter electron beam machine/oncologist but denies ever doing so. Notes taking [id number] pain medication without any significant relief. Denies fever, weight loss, rash, nausea, vomiting, diarrhea or other complaints. PCP: none provided. Past Medical History Reviewed: Historical Data, Nursing Documentation, Vital Signs Vital Signs: Last Vital Signs Temp 98.6 F 03/27/17 20:20 Pulse 90 03/27/17 20:20 Resp 16 03/27/17 20:20 BP 155/97 H 03/27/17 20:20 Pulse Ox 98 03/27/17 20:20 - Medical History PMH: Back Problems, Bronchitis, COPD, Fractures (left scapula/left ribs), GERD, Chronic Pain Denies: HIV, Chronic Kidney Disease - Surgical History Surgical History: Hernia Repair Other surgeries: Hand surgeries, right rotator cuff surgery, cholecystectomy, brain surgery for traumatic injury with scalp fracture - Family History Family History: States: Unknown Family Hx - Immunization History Hx Tetanus Toxoid Vaccination: Yes (more than 5 years ago) Hx Influenza Vaccination: No Hx Pneumococcal Vaccination: No - Home Medications Home Medications: Ambulatory Orders Medication Instructions Recorded Naproxen [Naprosyn] 500 mg PO Q12 #14 tab 03/27/17 - Allergies Allergies/Adverse Reactions: Allergies Allergy/AdvReac Type Severity Reaction Status Date / Time No Known Allergies Allergy Verified 03/20/17 08:40 Review of Systems ROS Statement: Except As Marked, All Systems Reviewed And Found Negative Constitutional: Negative for: Fever, Weight loss Gastrointestinal: Negative for: Nausea, Diarrhea Musculoskeletal: Positive for: Leg Pain (bilateral) Skin: Negative for: Rash Physical Exam - Reviewed Nursing Documentation Reviewed: Yes Vital Signs Reviewed: Yes - Physical Exam Appears: Positive for: Well, Non-toxic, No Acute Distress Head Exam: Positive for: ATRAUMATIC, NORMAL INSPECTION, NORMOCEPHALIC Skin: Positive for: Normal Color, Warm, Dry Eye Exam: Positive for: Normal appearance (right eye), EOMI (right eye), Other ( No vision on left eye due to an old injury. The pupil is unreactive.) Neck: Positive for: Normal Cardiovascular/Chest: Positive for: Regular Rate, Rhythm. Negative for: Murmur Respiratory: Positive for: Normal Breath Sounds. Negative for: Accessory Muscle Use, Respiratory Distress Gastrointestinal/Abdominal: Positive for: Normal Exam, Soft. Negative for: Tenderness Extremity: Positive for: Normal ROM Neurologic/Psych: Positive for: Oriented (x3) - Laboratory Results Result Diagrams: 03/27/17 20:35 03/27/17 20:35 - ECG O2 Sat by Pulse Oximetry: 98 (RA) Pulse Ox Interpretation: Normal Medical Decision Making Medical Decision Making: Time: 21:11 Initial impression: Patient is a 66 y/o male with myalgia. Initial plan: EKG Toradol 15 mg IVP Influenza AB test Heplock Insertion Reevaluation 22:30 Labs were reviewed and were not clinically significant for any abnormalities. Will follow up with referred clinic. Patient is stable for discharge. Scribe Attestation: Documented by Carmen Mariano, acting as a scribe for Keagan Pagan MD. Provider Scribe Attestation: All medical record entries made by the Scribe were at my direction and personally dictated by me. I have reviewed the chart and agree that the record accurately reflects my personal performance of the history, physical exam, medical decision making, and the department course for this patient. I have also personally directed, reviewed, and agree with the discharge instructions and disposition. Disposition - Clinical Impression Clinical Impression: Myalgia Counseled Patient/Family Regarding: Diagnosis - Disposition Referrals: [facility] [Outside] Disposition: Routine/Home Disposition Time: 22:30 Condition: STABLE Prescriptions: Naproxen [Naprosyn] 500 mg PO Q12 #14 tab Instructions: Musculoskeletal Pain (ED) Forms: [employer] (Azeri)
[2017-03-27 23:57] VITALS: BP 142/87; PULSE 86; RESP 18
--- NOTE | 2017-03-28 08:47 | CARD ---
APPROVED REPORT EKG Measurement Heart [id number] RI 168P90 [id number] <Conclusion> Normal sinus rhythm Normal ECG
== END 2017-03-27 23:57 | disposition home or self-care (01) ==
LOC: H.ER 20:10
DX: M79.606 Pain in leg, unspecified (principal); J44.9 Chronic obstructive pulmonary disease, unspecified; G89.29 Other chronic pain; K21.9 Gastro-esophageal reflux disease without esophagitis; Z90.49 Acquired absence of other specified parts of digestive tract
CPT/HCPCS: 80053; 82550; 84484; 85025; 87804; 93005; 96374; 99283; J1885

== ENCOUNTER 2017-04-08 12:54 | Emergency (ER) | payer MEDICARE, MEDICAID ==
[2017-04-08 12:54] VITALS: BMI 22.9
[2017-04-08 13:38] VITALS: BP 121/81; PULSE 76; RESP 16; TEMP 99.1; O2SAT 98
[2017-04-08] MEDS ORDERED: Albuterol-Ipratrop 3 mg / 0.5 (3 ml) UD INH STA (13:58)
[2017-04-08] MEDS ORDERED: Albuterol-Ipratrop 3 mg / 0.5 (3 ml) UD ONE ×2 (14:01→15:16)
[2017-04-08 14:30] LABS: BASO # 0.1 K/uL (0.0-0.2); BASO % 1.6 % (0.0-2.0); EOS # 0.1 K/uL (0.0-0.7); EOS % 1.4 % (0.0-4.0); HEMATOCRIT 42.2 % (35.0-51.0); LYMPH # 0.8 K/uL (1.0-4.3); LYMPH % 14.9 % (20.0-40.0); MEAN CELL VOLUME 101.8 fl (80.0-94.0); MEAN CORPUSCULAR HEMOGLOBIN 33.5 pg (27.0-31.0); MEAN CORPUSCULAR HGB CONC 32.9 g/dL (33.0-37.0); MEAN PLATELET VOLUME 7.4 fl (7.2-11.7); MONO # 0.8 K/uL (0.0-0.8); MONO % 15.9 % (0.0-10.0); NEUT # 3.5 K/uL (1.8-7.0); NEUT % 66.2 % (50.0-75.0); NRBC % 0.1 % (0.0-0.0); RED CELL DISTRIBUTION WIDTH 12.9 % (11.5-14.5); WHITE BLOOD COUNT 5.2 K/uL (4.8-10.8)
--- NOTE | 2017-04-08 14:30 | ED PDOC ---
HPI: CCC, URI, Sore Throat Time Seen by Provider: 04/08/17 13:55 Chief Complaint (Nursing): Cough, Cold, Congestion Chief Complaint (Provider): Cough History Per: Patient History/Exam Limitations: no limitations Onset/Duration Of Symptoms: Days (x 2) Current Symptoms Are (Timing): Still Present Additional Complaint(s): 66 year old male presents to the ER complaining of a cough since last night. Denies any fever, chills, or shortness of breath. Patient reports having bronchitis in the past, but his symptoms now are worse than previous episodes. He states he has an inhaler at home, which he has not used. Of note, patient is a smoker. PMD: None provided Past Medical History Reviewed: Historical Data, Nursing Documentation, Vital Signs Vital Signs: Last Vital Signs Temp 99.1 F 04/08/17 13:33 Pulse 76 04/08/17 13:33 Resp 16 04/08/17 13:33 BP 121/81 04/08/17 13:33 Pulse Ox 98 04/08/17 16:06 - Medical History PMH: Back Problems, Bronchitis, COPD, Fractures (left scapula/left ribs), GERD, Chronic Pain Denies: CHF, HIV, Chronic Kidney Disease - Surgical History Surgical History: Hernia Repair - Family History Family History: States: Unknown Family Hx - Social History Current smoker - smoking cessation education provided: Yes Alcohol: None Drugs: Denies - Immunization History Hx Tetanus Toxoid Vaccination: Yes (more than 5 years ago) Hx Influenza Vaccination: No Hx Pneumococcal Vaccination: No - Home Medications Home Medications: Ambulatory Orders Medication Instructions Recorded Naproxen [Naprosyn] 500 mg PO Q12 #14 tab 03/27/17 Albuterol HFA [Ventolin HFA 90 2 puff IH [id number] PRN #1 inhaler 04/08/17 mcg/actuation (8 g)] Azithromycin [Zithromax] 250 mg PO DAILY #6 tab 04/08/17 Prednisone [Deltasone] 3 tab PO DAILY #12 tablet 04/08/17 Promethazine/Codeine 5 ml PO Q12 PRN #100 ml 04/08/17 [Codeine/Promethazine 10 MG/5 Ml-6.25 MG/5 Ml] - Allergies Allergies/Adverse Reactions: Allergies Allergy/AdvReac Type Severity Reaction Status Date / Time No Known Allergies Allergy Verified 04/08/17 13:33 Review of Systems ROS Statement: Except As Marked, All Systems Reviewed And Found Negative Constitutional: Negative for: Fever, Chills Cardiovascular: Negative for: Chest Pain Respiratory: Positive for: Cough. Negative for: Shortness of Breath Physical Exam - Reviewed Nursing Documentation Reviewed: Yes Vital Signs Reviewed: Yes - Physical Exam Appears: Positive for: Non-toxic, No Acute Distress Head Exam: Positive for: ATRAUMATIC, NORMAL INSPECTION, NORMOCEPHALIC Skin: Positive for: Normal Color, Warm, Dry Eye Exam: Positive for: EOMI, Normal appearance, PERRL Neck: Positive for: Normal, Painless ROM, Supple Cardiovascular/Chest: Positive for: Regular Rate, Rhythm. Negative for: Murmur Respiratory: Positive for: Rhonchi (rhonchorous sounds noted). Negative for: Rales, Respiratory Distress Pulses-Radial (L): 2+ Pulses-Radial (R): 2+ Back: Positive for: Normal Inspection. Negative for: Vertebral Tenderness Extremity: Positive for: Normal ROM. Negative for: Pedal Edema, Deformity Neurologic/Psych: Positive for: Alert, Oriented - Laboratory Results Result Diagrams: 04/08/17 14:21 04/08/17 14:21 - ECG ECG: Positive for: Interpreted By Me, Viewed By Me Interpretation Of Abn EKG: Normal sinus rhythm @ 72 bpm, nonspecific T wave abnormality at v1,v2. O2 Sat by Pulse Oximetry: 98 (RA) Pulse Ox Interpretation: Normal - Progress ED Course And Treament: Given duoneb treatments x2 and steroids in the ER with improvement in symptoms. Patient is medically stable. Will d/c with rx's for albuterol inhaler, Zithromax , prednisone, and promethazine/codeine. Re-evaluation Time: 15:41 Condition: Improving,but remains with symptoms Medical Decision Making Medical Decision Making: Time: 13:58 Initial Impression: 66 y/o male with cough Initial Plan: * EKG * Pro-BNP * Troponin I * BMP * CBC w/ differential * Chest x-ray * Duoneb 3 ml INH x2 * Peak Flow pre/post treatment * Reevaluation Time: 14:59 Chest X-Ray: FINDINGS: LINES AND TUBES: None. LUNG AND PLEURA: The lungs are hyperinflated and there is peribronchial thickening with chronic changes in both lungs. There is no focal consolidation. HEART AND MEDIASTINUM: The heart is not enlarged. The hilar and mediastinal contours are within normal limits. SKELETAL STRUCTURES: There is diffuse bone demineralization. Status post right shoulder arthroplasty. VISUALIZED UPPER ABDOMEN: Normal. OTHER FINDINGS: None. IMPRESSION: No active pulmonary disease. COPD. Scribe Attestation: Documented by Lee Ann Kennedy, acting as a scribe for Erich De La Vega PA-C Provider Scribe Attestation: All medical record entries made by the Scribe were at my direction and personally dictated by me. I have reviewed the chart and agree that the record accurately reflects my personal performance of the history, physical exam, medical decision making, and the department course for this patient. I have also personally directed, reviewed, and agree with the discharge instructions and disposition. Disposition - Clinical Impression Clinical Impression: Bronchitis - Patient ED Disposition Is Patient to be Admitted: No Counseled Patient/Family Regarding: Diagnosis, Need For Followup, Rx Given - Disposition Referrals: [facility] [Outside] Disposition: Routine/Home Disposition Time: 15:41 Condition: FAIR Prescriptions: Albuterol HFA [Ventolin HFA 90 mcg/actuation (8 g)] 2 puff IH [id number] PRN #1 inhaler PRN Reason: Cough Azithromycin [Zithromax] 250 mg PO DAILY #6 tab Prednisone [Deltasone] 3 tab PO DAILY #12 tablet Promethazine/Codeine [Codeine/Promethazine 10 MG/5 Ml-6.25 MG/5 Ml] 5 ml PO Q12 PRN #100 ml PRN Reason: Cough Instructions: Acute Bronchitis (ED) Forms: [employer] ([place]ian), [facility] ED School/Work Excuse - POA Present On Arrival: None
[2017-04-08 14:42] LABS: BLOOD UREA NITROGEN 19 mg/dl (9-20); CALCIUM 8.7 mg/dL (8.4-10.2); CARBON DIOXIDE 24 mmol/L (22-30); CHLORIDE 105 mmol/L (98-107); GFR AFRICAN-AMERICAN > 60; GLUCOSE,RANDOM 87 mg/dL (75-110); POTASSIUM 4.5 MMOL/L (3.6-5.0); SODIUM 137 mmol/l (132-148)
--- NOTE | 2017-04-08 15:01 | RAD ---
HISTORY: COMPARISON: 04/29/2016 TECHNIQUE: Chest PA and lateral FINDINGS: LINES AND TUBES: None. LUNG AND PLEURA: The lungs are hyperinflated and there is peribronchial thickening with chronic changes in both lungs. There is no focal consolidation. HEART AND MEDIASTINUM: The heart is not enlarged. The hilar and mediastinal contours are within normal limits. SKELETAL STRUCTURES: There is diffuse bone demineralization. Status post right shoulder arthroplasty. VISUALIZED UPPER ABDOMEN: Normal. OTHER FINDINGS: None. IMPRESSION: No active pulmonary disease. COPD.
--- NOTE | 2017-04-09 11:21 | CARD ---
APPROVED REPORT EKG Measurement Heart [id number] <Conclusion> Normal sinus rhythm Normal ECG
== END 2017-04-08 16:09 | disposition home or self-care (01) ==
LOC: H.ER 12:54
DX: J20.9 Acute bronchitis, unspecified (principal); G89.29 Other chronic pain; K21.9 Gastro-esophageal reflux disease without esophagitis; J44.9 Chronic obstructive pulmonary disease, unspecified; F17.200 Nicotine dependence, unspecified, uncomplicated

== ENCOUNTER 2017-05-19 17:18 | Emergency (ER) | payer MEDICARE, MEDICAID ==
[2017-05-19 17:18] VITALS: BMI 22.9
[2017-05-19 17:50] VITALS: RESP 18; O2SAT 98
--- NOTE | 2017-05-19 18:06 | ED PDOC ---
HPI: General Adult Time Seen by Provider: 05/19/17 17:59 Chief Complaint (Nursing): Abnormal Skin Integrity History Per: Patient (Itchy rash on arms and chest x 4 days. No fever. No SOB, no tightness in throat.) Onset/Duration Of Symptoms: Days (4) Current Symptoms Are (Timing): Still Present Severity: Mild Past Medical History Vital Signs: Last Vital Signs Temp 98.3 F 05/19/17 17:48 Pulse 63 05/19/17 17:48 Resp 18 05/19/17 17:48 BP 134/81 05/19/17 17:48 Pulse Ox 98 05/19/17 17:48 - Medical History PMH: Arthritis, Back Problems, Bronchitis, COPD, Fractures (left scapula/left ribs), GERD, Chronic Pain Denies: CHF, HIV, Chronic Kidney Disease - Surgical History Surgical History: Hernia Repair - Family History Family History: States: Unknown Family Hx - Immunization History Hx Tetanus Toxoid Vaccination: Yes (more than 5 years ago) Hx Influenza Vaccination: No Hx Pneumococcal Vaccination: No - Home Medications Home Medications: Ambulatory Orders Medication Instructions Recorded Naproxen [Naprosyn] 500 mg PO Q12 #14 tab 03/27/17 Albuterol HFA [Ventolin HFA 90 2 puff IH [id number] PRN #1 inhaler 04/08/17 mcg/actuation (8 g)] Azithromycin [Zithromax] 250 mg PO DAILY #6 tab 04/08/17 Prednisone [Deltasone] 3 tab PO DAILY #12 tablet 04/08/17 Promethazine/Codeine 5 ml PO Q12 PRN #100 ml 04/08/17 [Codeine/Promethazine 10 MG/5 Ml-6.25 MG/5 Ml] DiphenhydrAMINE [Benadryl] 50 mg PO Q6 #15 cap 05/19/17 Ibuprofen [Motrin] 600 mg PO Q8 #20 tab 05/19/17 - Allergies Allergies/Adverse Reactions: Allergies Allergy/AdvReac Type Severity Reaction Status Date / Time No Known Allergies Allergy Verified 04/08/17 13:33 Review of Systems Constitutional: Negative for: Fever ENT: Negative for: Throat Swelling Respiratory: Negative for: Shortness of Breath, Wheezing Skin: Positive for: Rash Physical Exam - Physical Exam Appears: Positive for: Non-toxic, No Acute Distress Skin: Positive for: Rash (Punctate rash on forearms bilat. Few lesions on chest , 1 on back No erythema or drainage) ENT: Positive for: Normal ENT Inspection. Negative for: Tonsillar Swelling Respiratory: Positive for: Normal Breath Sounds. Negative for: Wheezing - ECG O2 Sat by Pulse Oximetry: 98 Disposition - Clinical Impression Clinical Impression: Dermatitis - Patient ED Disposition Is Patient to be Admitted: No Counseled Patient/Family Regarding: Diagnosis, Need For Followup, Rx Given - Disposition Referrals: [facility] [Outside] Disposition: Routine/Home Disposition Time: 18:07 Condition: FAIR Prescriptions: DiphenhydrAMINE [Benadryl] 50 mg PO Q6 #15 cap Ibuprofen [Motrin] 600 mg PO Q8 #20 tab Instructions: Dermatitis (ED)
[2017-05-19 18:20] VITALS: BP 128/76; PULSE 78; TEMP 97
== END 2017-05-19 19:24 | disposition home or self-care (01) ==
LOC: H.ER 17:18
DX: L30.9 Dermatitis, unspecified (principal)

== ENCOUNTER 2017-07-06 20:33 | Emergency (ER) | payer MEDICARE, MEDICAID ==
[2017-07-06 20:33] VITALS: BMI 22.2
[2017-07-06 20:41] VITALS: BP 153/87; PULSE 88; RESP 18; TEMP 97.4; O2SAT 98
--- NOTE | 2017-07-06 21:02 | ED PDOC ---
Lower Extremity Pain/Injury Time Seen by Provider: 07/06/17 20:59 Chief Complaint (Nursing): Lower Extremity Problem/Injury History Per: Patient History/Exam Limitations: no limitations Onset/Duration Of Symptoms: Hrs Current Symptoms Are (Timing): Still Present Additional Complaint(s): 66 y/o male, whose PMH includes hepatitis C and COPD, who presents to the ED complaining of right ankle pain since 03:00 PM today s/p twisting the ankle. Patient currently cannot bear weight and states using a cane prior to the injury. No other complaints were made. - Ankle/Foot Description Of Injury: Fell, Twisted Currently Unable To: Bear Weight Past Medical History Reviewed: Historical Data, Nursing Documentation, Vital Signs Vital Signs: Last Vital Signs Temp 97.4 F L 07/06/17 20:37 Pulse 88 07/06/17 20:37 Resp 18 07/06/17 20:37 BP 153/87 H 07/06/17 20:37 Pulse Ox 98 07/06/17 20:37 - Medical History PMH: Arthritis, Back Problems, Bronchitis, COPD, Fractures (left scapula/left ribs), GERD, Chronic Pain Denies: CHF, HIV, Chronic Kidney Disease - Surgical History Surgical History: Hernia Repair - Family History Family History: States: Unknown Family Hx - Immunization History Hx Tetanus Toxoid Vaccination: Yes (more than 5 years ago) Hx Influenza Vaccination: No Hx Pneumococcal Vaccination: No - Home Medications Home Medications: Ambulatory Orders Medication Instructions Recorded Oseltamivir [Tamiflu Cap] 75 mg PO BID #8 cap 06/02/17 Clotrimazole 1% Cream [Lotrimin 1%] 30 applic EXT BID #1 tube 06/30/17 Permethrin [Elimite] 60 gm TP ONCE #1 cream..g. 06/30/17 Tramadol HCl [Ultram] 50 mg PO Q8 PRN #15 tablet 07/06/17 - Allergies Allergies/Adverse Reactions: Allergies Allergy/AdvReac Type Severity Reaction Status Date / Time No Known Allergies Allergy Verified 06/30/17 01:04 Review of Systems ROS Statement: Except As Marked, All Systems Reviewed And Found Negative Cardiovascular: Negative for: Chest Pain Respiratory: Negative for: Shortness of Breath Musculoskeletal: Positive for: Other (right ankle pain s/p twisting it) Physical Exam - Reviewed Nursing Documentation Reviewed: Yes Vital Signs Reviewed: Yes - Physical Exam Appears: Positive for: Well, Non-toxic, No Acute Distress Head Exam: Positive for: ATRAUMATIC, NORMAL INSPECTION, NORMOCEPHALIC Skin: Positive for: Normal Color, Warm, DRY Eye Exam: Positive for: EOMI, Normal appearance, PERRL Extremity: Positive for: Tenderness (tenderness on right lateral aspect of foot) , Capillary Refill Neurologic/Psych: 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 patient refused crutches will use cane. patient given rx for MRI outpatient. Will f/u with Dr. Ramirez after MRI. Medical Decision Making Medical Decision Making: Plans: -- Tylenol and Ultram -- Right foot x-ray -- Right ankle x-ray Scribe Attestation: Kimberley Bassett MD Scribe Attestation: All medical record entries made by the Scribe were at my direction and personally dictated by me. I have reviewed the chart and agree that the record accurately reflects my personal performance of the history, physical exam, medical decision making, and the department course for this patient. I have also personally directed, reviewed, and agree with the discharge instructions and disposition. Disposition - Clinical Impression Clinical Impression: Fracture, cuboid - Patient ED Disposition Is Patient to be Admitted: No - Disposition Referrals: Dante Ramirez III, MD [Staff Provider] - Disposition: Routine/Home Disposition Time: 23:08 Condition: FAIR Prescriptions: Tramadol HCl [Ultram] 50 mg PO Q8 PRN #15 tablet PRN Reason: Pain, Severe (8-10) Instructions: Foot Fracture (DC) Forms: [employer] (Portuguese)
--- NOTE | 2017-07-07 05:45 | CP.PCM.CON ---
History of Present Illness - History of Present Illness History of Present Illness: 66 year old male with PMH of Hep C and RA seen in ED complaining of pain to his right foot. Patient states that he tripped on the carpet at home causing him to twist his ankle. He states that he was immediately unable to weight bear and has noticed increased pain, swelling and bruising to the side of his foot ever since. He was elevating his foot at home prior to coming in to the ED and was given Tramadol upon arrival to the ED which he says has help slightly in alleviating the pain. Patient denies any further pedal complaints at this time. He states that he is a 1/2 PPD smoker times "many years". 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; glaucoma) - RENAL Hx Chronic Kidney Disease: No - ENDOCRINE/METABOLIC Hx Endocrine Disorders: No - HEMATOLOGICAL/ONCOLOGICAL Hx Human Immunodeficiency Virus (HIV): No - INTEGUMENTARY Hx Dermatological Problems: No - MUSCULOSKELETAL/RHEUMATOLOGICAL Hx Arthritis: Yes Hx Fractures: Yes (left scapula/left ribs) - GASTROINTESTINAL Hx Gastrointestinal Disorders: Yes Hx Gastroesophageal Reflux: Yes - GENITOURINARY/GYNECOLOGICAL Hx Genitourinary Disorders: No - PSYCHIATRIC Hx Psychophysiologic Disorder: No Hx Substance Use: No - SURGICAL HISTORY Hx Surgeries: Yes Hx Herniorrhaphy: Yes Hx Orthopedic Surgery: Yes (left rotator cuff; skull fx repair) - ANESTHESIA Hx Anesthesia: Yes Hx Anesthesia Reactions: No Hx Malignant Hyperthermia: No Meds Home Medications: Home Medication List Medication Instructions Recorded Confirmed Type Tramadol HCl [Ultram] 50 mg PO Q8 PRN #15 tablet 07/06/17 Rx Allergies/Adverse Reactions: Allergies Allergy/AdvReac Type Severity Reaction Status Date / Time No Known Allergies Allergy Verified 06/30/17 01:04 Physical Exam - Constitutional Appears: Well, Non-toxic, In Acute Distress - Extremities Exam Additional comments: RLE focused exam: Vasc: DP/PT pulses palpable 2/4 b/l. Skin temperature warm to warm from proximal to distal b/l. CFT < 3 seconds to all digits b/l. Moderate edema noted to the right foot localized to the area directly over the cuboid Neuro: Epicritic and protective sensation grossly intact b/l Derm: Moderate ecchymosis noted to the area directly over the cuboid bone. Otherwise no open lesions, wounds, maceration, xerosis, abnormal pigmentation or abnormal growths noted b/l MSK: Severe POP to the level of the cuboid. ROM at ankle joint limited due to guarding. MMT limited due to guarding - Neurological Exam Neurological exam: Abnormal Gait, Alert, Oriented x3 - Psychiatric Exam Psychiatric exam: Normal Affect, Normal Mood Results - Vital Signs Recent Vital Signs: Last Vital Signs Temp 97.4 F L 07/06/17 20:37 Pulse 88 07/06/17 20:37 Resp 18 07/06/17 20:37 BP 153/87 H 07/06/17 20:37 Pulse Ox 98 07/06/17 23:29 Assessment & Plan - Assessment and Plan (Free Text) Assessment: 66 year old male with PMHx of Hep C and RA seen in ED for acute fracture of cuboid, right foot Plan: Patient seen and evaluated in ED Plan discussed with attending, Dr. Ramirez Charts, labs and vitals reviewed, afebrile Advised patient of his condition and told him that he would need to be NWB to the right foot in a posterior splint with crutches Patient adamently refused the posterior splint and said he would need to walk on his foot Patient was educated on the side effects/consequences of walking on a broken bone including but not limited to: malunion, nonunion, compartment syndrome, increased pain/swelling, increased risk of fall Patient demonstrated good understanding but still refused the posterior splint Patient's right foot and leg was wrapped in a Mckay compression dressing and a surgical shoe was placed on the foot Patient was given a prescription for Tramadol and another for an MRI to be scheduled as an outpatient Patient was advised that once he had completed the outpatient MRI he should contact Dr. Ramirez's office and schedule a follow up visit ANGELA Patient was also instructed to stay off of the foot as much as humanly possible and to practice RICE therapy at his home - Date & Time Date: 07/07/17 Time: 05:53
--- NOTE | 2017-07-07 08:18 | RAD ---
PROCEDURE: Right Foot Radiographs. HISTORY: right foot pain COMPARISON: None. FINDINGS: BONES: Is no acute fracture dislocation identified. However, ill defined re- density seen related to the lateral soft tissues of the distal phalanx great toe as well as the medial distal phalanx soft tissues at the 2nd digit suspicious for possible toenail pathology or other soft tissue pathology. Further clinical correlation is advised. JOINTS: Degenerative joint space narrowing, cortical sclerosis and limited osteophyte formation appreciated throughout the interphalangeal joints as well as the 1st metatarsophalangeal joint and the midfoot joints mildly and diffusely. No subluxation or dislocation. SOFT TISSUES: As above. OTHER FINDINGS: None. IMPRESSION: No acute fracture, dislocation or suspicious lytic or blastic change. Soft tissue calcifications suggests dermal or toenail abnormalities of the 1st and 2nd digits distally as discussed above. Clinically correlate further. Degenerative changes as discussed above primarily at the forefoot.
--- NOTE | 2017-07-07 08:22 | RAD ---
PROCEDURE: Right Ankle Radiographs. HISTORY: ankle injury COMPARISON: None FINDINGS: BONES: No acute fracture or destructive bony lesion identified. JOINTS: Though degenerative sclerosis appreciate the tibiotalar and subtalar joints. Ankle mortise nevertheless appears intact. SOFT TISSUES: Local soft tissues appear diffusely unremarkable. OTHER FINDINGS: None. IMPRESSION: No acute fracture, subluxation or destructive bony lesion identified. Limited degenerative changes as discussed above.
== END 2017-07-06 23:10 | disposition home or self-care (01) ==
LOC: H.ER 20:33
DX: T14.8XXA Other injury of unspecified body region, initial encounter (principal); X50.1XXA Overexertion from prolonged static or awkward postures, initial encounter; B19.20 Unspecified viral hepatitis C without hepatic coma; F17.210 Nicotine dependence, cigarettes, uncomplicated; G89.29 Other chronic pain; K21.9 Gastro-esophageal reflux disease without esophagitis

== ENCOUNTER 2017-07-13 02:04 | Emergency (ER) | payer MEDICARE, MEDICAID ==
[2017-07-13 02:04] VITALS: BMI 22.2
[2017-07-13 02:27] VITALS: BP 125/82; PULSE 80; RESP 16; TEMP 97.4; O2SAT 100
--- NOTE | 2017-07-13 02:44 | ED PDOC ---
HPI: Allergic Reaction Time Seen by Provider: 07/13/17 02:32 Chief Complaint (Nursing): Abnormal Skin Integrity Chief Complaint (Provider): skin rash History Per: Patient History/Exam Limitations: no limitations Onset/Duration Of Symptoms: Days (2), Waxing/Waning, Intermittent Episodes, Gradual Current Symptoms Are (Timing): Better Possible Cause: Unknown Associated Symptoms: Skin Rash, Itching Home/EMS Treatment: None, Steroids (pt indicated that rx steroid cream helped in the past) Severity: Mild Past Medical History Vital Signs: Last Vital Signs Temp 97.4 F L 07/13/17 02:13 Pulse 80 07/13/17 02:13 Resp 16 07/13/17 02:13 BP 125/82 07/13/17 02:13 Pulse Ox 100 07/13/17 02:13 - Medical History PMH: Arthritis, Back Problems, Bronchitis, COPD, Fractures (left scapula/left ribs), GERD, Chronic Pain Denies: CHF, HIV, Chronic Kidney Disease - Surgical History Surgical History: Hernia Repair - Family History Family History: States: Unknown Family Hx - Immunization History Hx Tetanus Toxoid Vaccination: Yes (more than 5 years ago) Hx Influenza Vaccination: No Hx Pneumococcal Vaccination: No - Home Medications Home Medications: Ambulatory Orders Medication Instructions Recorded Oseltamivir [Tamiflu Cap] 75 mg PO BID #8 cap 06/02/17 Clotrimazole 1% Cream [Lotrimin 1%] 30 applic EXT BID #1 tube 06/30/17 Permethrin [Elimite] 60 gm TP ONCE #1 cream..g. 06/30/17 Tramadol HCl [Ultram] 50 mg PO Q8 PRN #15 tablet 07/06/17 Clotrimazole 1% Cream [Lotrimin 1% 15 applic EXT BID #1 tube 07/13/17 CREAM] Hydrocortisone 1% Cream [Cortizone 30 applic EXT QID #1 tube 07/13/17 1% Cream] - Allergies Allergies/Adverse Reactions: Allergies Allergy/AdvReac Type Severity Reaction Status Date / Time No Known Allergies Allergy Verified 07/13/17 02:23 Review of Systems Skin: Positive for: Rash, Other (prurititis) Physical Exam - Reviewed Nursing Documentation Reviewed: Yes Vital Signs Reviewed: Yes - Physical Exam Appears: Positive for: Well, Non-toxic, No Acute Distress Head Exam: Positive for: ATRAUMATIC, NORMAL INSPECTION, NORMOCEPHALIC Skin: Positive for: Warm, Rash (rash on right shoulder posterior and abdomen; rash all but resolved, pt complains of pruritis) Pulses-Carotid (L): 2+ Pulses-Carotid (R): 2+ Pulses-Radial (L): 2+ Pulses-Radial (R): 2+ - ECG O2 Sat by Pulse Oximetry: 100 Disposition - Clinical Impression Clinical Impression: Chronic pruritus - Patient ED Disposition Is Patient to be Admitted: No Doctor Will See Patient In The: Office Counseled Patient/Family Regarding: Diagnosis, Need For Followup, Rx Given - Disposition Referrals: Coco Ornelas MD [Medical Doctor] - [facility] [Outside] Disposition: Routine/Home Disposition Time: 02:47 Condition: GOOD Prescriptions: Clotrimazole 1% Cream [Lotrimin 1% CREAM] 15 applic EXT BID #1 tube Hydrocortisone 1% Cream [Cortizone 1% Cream] 30 applic EXT QID #1 tube Instructions: Itchy Skin
== END 2017-07-13 04:48 | disposition home or self-care (01) ==
LOC: H.ER 02:04
DX: T78.40XA Allergy, unspecified, initial encounter (principal); G89.29 Other chronic pain; J44.9 Chronic obstructive pulmonary disease, unspecified; K21.9 Gastro-esophageal reflux disease without esophagitis
CPT/HCPCS: 96372; 99282; J1100

== ENCOUNTER 2017-07-31 00:59 | Observation (INO) | payer MEDICARE, MEDICAID ==
[2017-07-31 00:59] VITALS: BMI 22.2
[2017-07-31] MEDS ORDERED: Oxycodone/Acetaminophen 5/325 mg Tab PO ONE (02:29)
--- NOTE | 2017-07-31 02:34 | ED PDOC ---
HPI: Chest Pain Time Seen by Provider: 07/31/17 01:44 Chief Complaint (Nursing): Chest Pain Chief Complaint (Provider): chest pain History Per: Patient History/Exam Limitations: no limitations Onset/Duration Of Symptoms: Waxing/Waning Current Symptoms Are (Timing): Still Present Quality: Other (punching) Associated Symptoms: Dyspnea Exacerbating Factors: None Alleviating Factors: None Additional Complaint(s): 67 y/o male presents for evaluation of intermittent left-sided chest pain x 1 day. Associated dyspnea and radiation to left arm. Patient also reports pain to right arm but feels that to be related to past rotator cuff injury, but notes left arm symptoms to be new. Patient states he has had intermittent pain to check x 1 month, but notes pain to have intensify tonight, with associated other symptoms. Denies fever, palpitations, leg pain/swelling, recent travel. Past Medical History Reviewed: Historical Data, Nursing Documentation, Vital Signs Vital Signs: Last Vital Signs Temp 98.2 F 08/01/17 15:36 Pulse 75 08/01/17 15:36 Resp 20 08/01/17 15:36 BP 124/80 08/01/17 15:36 Pulse Ox 95 08/01/17 15:36 - Medical History PMH: Arthritis, Back Problems, Bronchitis, COPD, Fractures (left scapula/left ribs), GERD, Chronic Pain Denies: CHF, HIV, Chronic Kidney Disease Other PMH: left eye blindness - Surgical History Surgical History: Hernia Repair - Family History Family History: States: Unknown Family Hx - Immunization History Hx Tetanus Toxoid Vaccination: Yes (more than 5 years ago) Hx Influenza Vaccination: No Hx Pneumococcal Vaccination: No - Home Medications Home Medications: Ambulatory Orders Medication Instructions Recorded Albuterol/Ipratropium [Combivent 1 puff IH Q6 PRN 30 Days #1 inhaler 08/01/17 Respimat] predniSONE [predniSONE Tab] 40 mg PO DAILY 3 Days #3 tab 08/01/17 - Allergies Allergies/Adverse Reactions: Allergies Allergy/AdvReac Type Severity Reaction Status Date / Time No Known Allergies Allergy Verified 07/31/17 01:46 Review of Systems ROS Statement: Except As Marked, All Systems Reviewed And Found Negative Cardiovascular: Positive for: Chest Pain Physical Exam - Reviewed Nursing Documentation Reviewed: Yes Vital Signs Reviewed: Yes - Physical Exam Appears: Positive for: Non-toxic, No Acute Distress Head Exam: Positive for: ATRAUMATIC, NORMAL INSPECTION, NORMOCEPHALIC Skin: Positive for: Normal Color Eye Exam: Positive for: Normal appearance ENT: Positive for: Normal ENT Inspection Cardiovascular/Chest: Positive for: Regular Rate, Rhythm Respiratory: Positive for: Normal Breath Sounds Gastrointestinal/Abdominal: Positive for: Normal Exam Back: Positive for: Normal Inspection Extremity: Positive for: Normal ROM Neurologic/Psych: Positive for: Alert, Oriented - Laboratory Results Result Diagrams: 07/31/17 17:04 07/31/17 17:04 - ECG ECG: Positive for: Viewed By Me (reviewed by ED attending) ECG Rhythm: Positive for: Sinus Rhythm O2 Sat by Pulse Oximetry: 96 Pulse Ox Interpretation: Normal - Radiology X-Ray: Viewed By Me X-Ray Interpretation: No Acute Disease - Progress ED Course And Treament: labs, ekg, chest xray, asa PO, percocet PO Patient will be placed in observation telemetry for chest pain to r/out ACS. Case discussed with JESUS Rapp resident on-call Disposition - Clinical Impression Clinical Impression: Chest pain - Patient ED Disposition Is Patient to be Admitted: Yes - Disposition Disposition Time: 04:25 Condition: FAIR
[2017-07-31] MEDS ORDERED: Oxycodone/Acetaminophen 5/325 mg Tab ONE (02:38)
[2017-07-31 02:42] LABS: BASO # 0.1 K/uL (0.0-0.2); BASO % 1.1 % (0.0-2.0); EOS # 0.2 K/uL (0.0-0.7); EOS % 3.9 % (0.0-4.0); HEMOGLOBIN 13.2 g/dL (12.0-18.0); LYMPH % 40.3 % (20.0-40.0); MEAN CELL VOLUME 101.2 fl (80.0-94.0); MEAN CORPUSCULAR HEMOGLOBIN 34.2 pg (27.0-31.0); MEAN CORPUSCULAR HGB CONC 33.8 g/dL (33.0-37.0); MEAN PLATELET VOLUME 7.7 fl (7.2-11.7); MONO # 0.9 K/uL (0.0-0.8); MONO % 17.7 % (0.0-10.0); NEUT # 1.8 K/uL (1.8-7.0); NRBC % 0.4 % (0.0-0.0); RBC 3.88 Mil/uL (4.40-5.90); RED CELL DISTRIBUTION WIDTH 13.8 % (11.5-14.5); WHITE BLOOD COUNT 4.9 K/uL (4.8-10.8)
[2017-07-31 02:48] LABS: ALB/GLOB RATIO 0.9 (1.0-2.1); ALBUMIN 3.4 g/dL (3.5-5.0); ALT/SGPT 122 U/L (21-72); AST/SGOT 79 U/L (17-59); BLOOD UREA NITROGEN 21 mg/dl (9-20); CALCIUM 8.6 mg/dL (8.4-10.2); GFR AFRICAN-AMERICAN > 60; GFR NON-AFRICAN AMERICAN > 60
[2017-07-31 03:00] LABS: B-TYPE NATRIURETIC PEPTIDE 183 pg/ml (0-900)
[2017-07-31 09:02] LABS: OPIATES, UR NEGATIVE (NEGATIVE)
[2017-07-31 09:10] LABS: BARBITURATES, UR NEGATIVE (NEGATIVE); BENZODIAZEPINES, UR NEGATIVE (NEGATIVE); PHENCYCLIDINE, UR NEGATIVE (NEGATIVE)
[2017-07-31] MEDS: Enoxaparin 40 mg Syringe SC SCH (09:23)
--- NOTE | 2017-07-31 09:26 | CP.PCM.HP ---
History of Present Illness - History of Present Illness History of Present Illness: 66 y/o male with a PMHx of Hep C, COPD, glaucoma presented to ED with a 3-4 days history of worsening chest pain and SOB. Pain is located along the left sternal border, nonradiating. Pain is 7/10, intermittent (episodes last ~2mins) , sharp in character, does not change with respiration/position and does not have any alleviating or exacerbating factors. He reports these episodes have been occurring frequently for the past few months and he had previous ER visits and hospitalizations for the same. Also patient c/o productive cough with yellowish sputum for the last week. Denies exertional chest pain. He denies any other associated cardiac symptoms such as left arm/jaw pain, crushing substernal pain, nausea, vomiting, and diaphoresis. Denies palpitations and leg/ calf pain. Upon further history taking, he reports he was diagnosed with an thoracic aortic aneurysm last year, no evidence founded in previous documentation. No other medical complaints. PMD: Dr Adamson at [facility], last visit 06/2016. PMHx: Hep C, glaucoma, bronchitis, COPD, Thoracic aortic aneurysm?? Meds: none ALL: NKDA PsurgHx: multiple fx repairs, abdominal hernia repair. Right shoulder rotator cuff injury surgery 15 years ago SocialHx: Homeless living in a prison. Smoker 1 PPD/day x 50 years. + ETOH occs. Denies rect drugs. FamilyHx: noncontributory Patient status: Full code ED course VS: normal Labs: CBC 4.9>13.2<197; CMP: Bun/Cr 21/0.9 Trop x1 neg. Imaging: EKG: SR with APC. CXR: no acute infiltrate. Pending final report. Meds: IV fluids NS 500 ml. ASA, percocet Present on Admission - Present on Admission Any Indicators Present on Admission: No Review of Systems - Review of Systems All systems: reviewed and no additional remarkable complaints except (HPI) Past Patient History - Infectious Disease Hx of Infectious Diseases: None - Past Medical History & Family History Past Medical History?: Yes - Past Social History Smoking Status: Heavy Smoker > 10 Cigarettes Daily - CARDIAC Hx Congestive Heart Failure: No - PULMONARY Hx Bronchitis: Yes Hx Chronic Obstructive Pulmonary Disease (COPD): Yes - NEUROLOGICAL Hx Neurological Disorder: Yes - HEENT Hx HEENT Problems: Yes (blind in left eye; glaucoma) - RENAL Hx Chronic Kidney Disease: No - ENDOCRINE/METABOLIC Hx Endocrine Disorders: No - HEMATOLOGICAL/ONCOLOGICAL Hx Human Immunodeficiency Virus (HIV): No - INTEGUMENTARY Hx Dermatological Problems: No - MUSCULOSKELETAL/RHEUMATOLOGICAL Hx Arthritis: Yes Hx Fractures: Yes (left scapula/left ribs) - GASTROINTESTINAL Hx Gastrointestinal Disorders: Yes Hx Gastroesophageal Reflux: Yes - GENITOURINARY/GYNECOLOGICAL Hx Genitourinary Disorders: No - PSYCHIATRIC Hx Psychophysiologic Disorder: No Hx Substance Use: No - SURGICAL HISTORY Hx Surgeries: Yes Hx Herniorrhaphy: Yes Hx Orthopedic Surgery: Yes (left rotator cuff; skull fx repair) - ANESTHESIA Hx Anesthesia: Yes Hx Anesthesia Reactions: No Hx Malignant Hyperthermia: No Meds Allergies/Adverse Reactions: Allergies Allergy/AdvReac Type Severity Reaction Status Date / Time No Known Allergies Allergy Verified 07/31/17 01:46 Physical Exam - Constitutional Appears: No Acute Distress - Head Exam Head Exam: NORMAL INSPECTION - Eye Exam Eye Exam: EOMI, PERRL - ENT Exam ENT Exam: Mucous Membranes Moist - Respiratory Exam Respiratory Exam: Chest Wall Tenderness, Clear to Auscultation Bilateral, NORMAL BREATHING PATTERN. absent: Wheezes, Respiratory Distress - Cardiovascular Exam Cardiovascular Exam: REGULAR RHYTHM, +S1, +S2. absent: Tachycardia - GI/Abdominal Exam GI & Abdominal Exam: Normal Bowel Sounds, Soft. absent: Distended, Tenderness - Extremities Exam Extremities exam: Negative for: calf tenderness - Neurological Exam Neurological exam: Alert, CN II-XII Intact, Oriented x3 - Psychiatric Exam Psychiatric exam: Normal Mood - Skin Skin Exam: Dry, Warm Results - Vital Signs Recent Vital Signs: Last Vital Signs Temp 97.9 F 07/31/17 06:00 Pulse 64 07/31/17 08:18 Resp 18 07/31/17 08:18 BP 116/78 07/31/17 08:18 Pulse Ox 97 07/31/17 08:18 - Labs Result Diagrams: 07/31/17 02:37 07/31/17 02:37 Labs: Laboratory Results - last 24 hr 07/31/17 07/31/17 07/31/17 02:37 02:37 08:20 WBC 4.9 RBC 3.88 L Hgb 13.2 Hct 39.2 MCV 101.2 H MCH 34.2 H MCHC 33.8 RDW 13.8 Plt Count 197 MPV 7.7 Neut % (Auto) 37.0 L Lymph % (Auto) 40.3 H [place] % (Auto) 17.7 H Eos % (Auto) 3.9 Baso % (Auto) 1.1 Neut # (Auto) 1.8 Lymph # (Auto) 2.0 [place] # (Auto) 0.9 H Eos # (Auto) 0.2 Baso # (Auto) 0.1 Sodium 146 Potassium 4.1 Chloride 109 H Carbon Dioxide 22 Anion Gap 19 BUN 21 H Creatinine 0.8 Est GFR ( Amer) > 60 Est GFR (Non-Af Amer) > 60 Random Glucose 104 Calcium 8.6 Total Bilirubin 0.4 AST 79 H ALT 122 H D Alkaline Phosphatase 71 Troponin I < 0.0120 NT-Pro-B Natriuret Pep 183 Total Protein 7.2 Albumin 3.4 L D Globulin 3.9 Albumin/Globulin Ratio 0.9 L Urine Opiates Screen Urine Methadone Screen Ur Barbiturates Screen Ur Phencyclidine Scrn Ur Amphetamines Screen U Benzodiazepines Scrn U Oth Cocaine Metabols U Cannabinoids Screen Alcohol, Quantitative < 10 07/31/17 08:35 WBC RBC Hgb Hct MCV MCH MCHC RDW Plt Count MPV Neut % (Auto) Lymph % (Auto) [place] % (Auto) Eos % (Auto) Baso % (Auto) Neut # (Auto) Lymph # (Auto) [place] # (Auto) Eos # (Auto) Baso # (Auto) Sodium Potassium Chloride Carbon Dioxide Anion Gap BUN Creatinine Est GFR ( Amer) Est GFR (Non-Af Amer) Random Glucose Calcium Total Bilirubin AST ALT Alkaline Phosphatase Troponin I NT-Pro-B Natriuret Pep Total Protein Albumin Globulin Albumin/Globulin Ratio Urine Opiates Screen Negative Urine Methadone Screen Negative Ur Barbiturates Screen Negative Ur Phencyclidine Scrn Negative Ur Amphetamines Screen Negative U Benzodiazepines Scrn Negative U Oth Cocaine Metabols Negative U Cannabinoids Screen Negative Alcohol, Quantitative Assessment & Plan - Assessment and Plan (Free Text) Assessment: 67 yo M patient w/ PMH of Hep C, COPD admitted due to chest pain r/o ACS. Current smoker 50 ppd 1- Chest pain r/o ACS. - admitted to tele for observation - vs Q4H - f/u EKG - Trend troponin Q8H, first result WNL - Consider Cardiology consult 2- COPD exacerbation - smoker - sob, cough, yellowish sputum - CXR: no active lung disease. - Duoneb Q4 - Ciprofloxacin 500mg Q12H - Prednisone 40mg PO daily 3- DVT prophylaxis - Lovenox 40 mg SC daily.
--- NOTE | 2017-07-31 10:34 | CARD ---
APPROVED REPORT EKG Measurement Heart [id number] <Conclusion> Sinus rhythm with premature atrial complexes Otherwise normal ECG
[2017-07-31] MEDS ORDERED: Albuterol-Ipratrop 3 mg / 0.5 (3 ml) UD INH PRN (10:56)
--- NOTE | 2017-07-31 11:07 | RAD ---
HISTORY: chest pain COMPARISON: 05/31/2017 TECHNIQUE: Chest PA and lateral FINDINGS: LUNGS: No active pulmonary disease. PLEURA: No significant pleural effusion identified. No pneumothorax apparent. CARDIOVASCULAR: Normal. OSSEOUS STRUCTURES: No significant abnormalities. VISUALIZED UPPER ABDOMEN: Normal. OTHER FINDINGS: None. IMPRESSION: No active disease.
[2017-07-31 17:21] LABS: BASO % 0.6 % (0.0-2.0); EOS % 0.6 % (0.0-4.0); HEMOGLOBIN 14.6 g/dL (12.0-18.0); LYMPH % 21.2 % (20.0-40.0); MEAN CELL VOLUME 101.3 fl (80.0-94.0); MEAN CORPUSCULAR HEMOGLOBIN 33.6 pg (27.0-31.0); MEAN CORPUSCULAR HGB CONC 33.2 g/dL (33.0-37.0); MEAN PLATELET VOLUME 7.7 fl (7.2-11.7); MONO # 0.2 K/uL (0.0-0.8); MONO % 3.8 % (0.0-10.0); NEUT # 3.4 K/uL (1.8-7.0); NEUT % 73.8 % (50.0-75.0); RBC 4.33 Mil/uL (4.40-5.90); RED CELL DISTRIBUTION WIDTH 13.8 % (11.5-14.5); WHITE BLOOD COUNT 4.6 K/uL (4.8-10.8)
[2017-07-31 17:43] LABS: ALB/GLOB RATIO 0.9 (1.0-2.1); ALT/SGPT 134 U/L (21-72); AST/SGOT 86 U/L (17-59); BLOOD UREA NITROGEN 20 mg/dl (9-20); CALCIUM 9.2 mg/dL (8.4-10.2); GFR AFRICAN-AMERICAN > 60; GFR NON-AFRICAN AMERICAN > 60
[2017-08-01] MEDS: Enoxaparin 40 mg Syringe SC SCH (10:02)
[2017-08-01 12:33] VITALS: TEMP 98.2
--- NOTE | 2017-08-01 14:06 | CP.PCM.PN ---
Subjective - Date & Time of Evaluation Date of Evaluation: 08/01/17 Time of Evaluation: 07:30 - Subjective Subjective: Patient seen and examined this morning, no acute overnight events, reports feeling better than yesterday. Afebrile, no chest pain or abdominal pain. Still with mild cough but no sob. No dizziness. Objective - Vital Signs/Intake and Output Vital Signs (last 24 hours): Temp Pulse Resp BP Pulse Ox 98.2 F 79 18 133/80 98 08/01/17 12:32 08/01/17 12:32 08/01/17 12:32 08/01/17 12:32 08/01/17 12:32 - Medications Medications: Current Medications Albuterol/Ipratropium (Duoneb 3 Mg/0.5 Mg (3 Ml) Ud) 3 ml INH RQ4 PRN PRN Reason: Shortness of Breath Chlordiazepoxide (Librium) 10 mg PO Q6 [facility] Last Admin: 08/01/17 10:04 Dose: 10 mg Ciprofloxacin (Cipro) 500 mg PO Q12 AURELIO PRN Reason: Protocol Last Admin: 08/01/17 10:02 Dose: 500 mg Enoxaparin Sodium (Lovenox) 40 mg SC DAILY [facility] PRN Reason: Protocol Last Admin: 08/01/17 10:02 Dose: 40 mg Ibuprofen (Motrin Tab) 400 mg PO Q6 PRN PRN Reason: Pain, moderate (4-7) Last Admin: 07/31/17 19:40 Dose: 400 mg Nicotine (Nicoderm Cq) 1 patch TD DAILY [facility] Last Admin: 08/01/17 10:02 Dose: 1 patch Prednisone (Prednisone Tab) 40 mg PO DAILY [facility] Last Admin: 08/01/17 10:02 Dose: 40 mg - Labs Labs: 07/31/17 17:04 07/31/17 17:04 - Constitutional Appears: Well, No Acute Distress - Eye Exam Eye Exam: EOMI, PERRL - Respiratory Exam Respiratory Exam: Clear to Ausculation Bilateral, NORMAL BREATHING PATTERN. absent: Accessory Muscle Use, Chest Wall Tenderness - Cardiovascular Exam Cardiovascular Exam: REGULAR RHYTHM, +S1, +S2. absent: Tachycardia, Murmur - GI/Abdominal Exam GI & Abdominal Exam: Soft, Normal Bowel Sounds. absent: Distended, Tenderness - Extremities Exam Extremities Exam: absent: Calf Tenderness - Neurological Exam Neurological Exam: Alert, Awake, Oriented x3 - Psychiatric Exam Psychiatric exam: Normal Affect - Skin Skin Exam: Dry, Warm Assessment and Plan - Assessment and Plan (Free Text) Assessment: 67 yo M patient w/ PMH of Hep C, COPD admitted due to chest pain r/o ACS. Current smoker 50 ppd 1- Chest pain r/o ACS. - asymtomatic today - Trend troponin negative - EKG NSR with APC 2- COPD exacerbation, improving - smoker - cough, yellowish sputum - CXR: no active lung disease. - Duoneb Q4 - Levofloxacine 750 mg PO daily. - Prednisone 40mg PO daily 3- DVT prophylaxis - Lovenox 40 mg SC daily.
[2017-08-01 15:36] VITALS: BP 124/80; PULSE 75; RESP 20
--- NOTE | 2017-08-01 15:48 | CP.PCM.DIS ---
Provider - Provider Date of Admission: 07/31/17 05:54 Attending physician: Jessi Tatum MD Time Spent in preparation of Discharge (in minutes): 30 Diagnosis - Discharge Diagnosis (1) Chest pain Status: Resolved Priority: High (2) COPD (chronic obstructive pulmonary disease) Status: Acute Hospital Course - Lab Results Lab Results: Most Recent Lab Values WBC 4.6 K/uL (4.8-10.8) L 07/31/17 17:04 RBC 4.33 Mil/uL (4.40-5.90) L 07/31/17 17:04 Hgb 14.6 g/dL (12.0-18.0) 07/31/17 17:04 Hct 43.9 % (35.0-51.0) 07/31/17 17:04 MCV 101.3 fl (80.0-94.0) H 07/31/17 17:04 MCH 33.6 pg (27.0-31.0) H 07/31/17 17:04 MCHC 33.2 g/dL (33.0-37.0) 07/31/17 17:04 RDW 13.8 % (11.5-14.5) 07/31/17 17:04 Plt Count 214 K/uL (130-400) 07/31/17 17:04 MPV 7.7 fl (7.2-11.7) 07/31/17 17:04 Neut % (Auto) 73.8 % (50.0-75.0) 07/31/17 17:04 Lymph % (Auto) 21.2 % (20.0-40.0) 07/31/17 17:04 [place] % (Auto) 3.8 % (0.0-10.0) 07/31/17 17:04 Eos % (Auto) 0.6 % (0.0-4.0) 07/31/17 17:04 Baso % (Auto) 0.6 % (0.0-2.0) 07/31/17 17:04 Neut # (Auto) 3.4 K/uL (1.8-7.0) 07/31/17 17:04 Lymph # (Auto) 1.0 K/uL (1.0-4.3) 07/31/17 17:04 [place] # (Auto) 0.2 K/uL (0.0-0.8) 07/31/17 17:04 Eos # (Auto) 0.0 K/uL (0.0-0.7) 07/31/17 17:04 Baso # (Auto) 0.0 K/uL (0.0-0.2) 07/31/17 17:04 Sodium 142 mmol/l (132-148) 07/31/17 17:04 Potassium 4.9 MMOL/L (3.6-5.0) 07/31/17 17:04 Chloride 105 mmol/L (98-107) 07/31/17 17:04 Carbon Dioxide 25 mmol/L (22-30) 07/31/17 17:04 Anion Gap 17 (10-20) 07/31/17 17:04 BUN 20 mg/dl (9-20) 07/31/17 17:04 Creatinine 1.0 mg/dl (0.8-1.5) 07/31/17 17:04 Est GFR ( Amer) > 60 07/31/17 17:04 Est GFR (Non-Af Amer) > 60 07/31/17 17:04 Random Glucose 109 mg/dL (75-110) 07/31/17 17:04 Calcium 9.2 mg/dL (8.4-10.2) 07/31/17 17:04 Total Bilirubin 0.8 mg/dl (0.2-1.3) 07/31/17 17:04 AST 86 U/L (17-59) H 07/31/17 17:04 ALT 134 U/L (21-72) H 07/31/17 17:04 Alkaline Phosphatase 86 U/L (38-126) 07/31/17 17:04 Troponin I < 0.0120 ng/mL (0.00-0.120) 07/31/17 19:44 NT-Pro-B Natriuret Pep 183 pg/ml (0-900) 07/31/17 02:37 Total Protein 8.3 G/DL (6.3-8.2) H 07/31/17 17:04 Albumin 4.0 g/dL (3.5-5.0) 07/31/17 17:04 Globulin 4.3 gm/dL (2.2-3.9) H 07/31/17 17:04 Albumin/Globulin Ratio 0.9 (1.0-2.1) L 07/31/17 17:04 Urine Opiates Screen Negative (NEGATIVE) 07/31/17 08:35 Urine Methadone Screen Negative (NEGATIVE) 07/31/17 08:35 Ur Barbiturates Screen Negative (NEGATIVE) 07/31/17 08:35 Ur Phencyclidine Scrn Negative (NEGATIVE) 07/31/17 08:35 Ur Amphetamines Screen Negative (NEGATIVE) 07/31/17 08:35 U Benzodiazepines Scrn Negative (NEGATIVE) 07/31/17 08:35 U Oth Cocaine Metabols Negative (NEGATIVE) 07/31/17 08:35 U Cannabinoids Screen Negative (NEGATIVE) 07/31/17 08:35 Alcohol, Quantitative < 10 mg/dl (0-10) 07/31/17 08:20 - Hospital Course Hospital Course: Patient 67 yo M with PMH of COPD was admitted due to chest pain to r/o ACS. Patient was found with symptoms, exam and labs consisted with COPD exacerbation. Patient was treated with douneb, steriods and abx. Trend troponins negative and normal EKG. Patient was discharged home safely with f/u instructions with PCP and steroids treatment to complete 5 days. Discharge Exam - Additional Findings Additional findings: See note from today. Discharge Plan - Discharge Medications Prescriptions: Albuterol/Ipratropium [Combivent Respimat] 1 puff IH Q6 PRN 30 Days #1 inhaler PRN Reason: Cough predniSONE [predniSONE Tab] 40 mg PO DAILY 3 Days #3 tab - Follow Up Plan Condition: FAIR Disposition: HOME/ ROUTINE Patient education suggested?: Yes Instructions: Chest Pain (DC), Exacerbation of COPD (DC) Additional Instructions: call for follow up appt in 1 week Referrals: [facility] [place] [Outside]
[2017-08-02] MEDS ORDERED: levoFLOXacin 750 MG TAB PO SCH (09:00)
[2017-08-05 05:57] VITALS: O2SAT 96
== END 2017-08-01 18:34 | disposition home or self-care (01) ==
LOC: H.ER 00:59 → H.ERHOLD 05:54 → H.TEL 18:17
PROVIDERS: ADMIT Family Medicine Geriatric Medicine; ATTEND Family Medicine Geriatric Medicine
DX: R07.89 Other chest pain (principal); J44.1 Chronic obstructive pulmonary disease with (acute) exacerbation; F17.210 Nicotine dependence, cigarettes, uncomplicated; H40.9 Unspecified glaucoma; H54.62 Unqualified visual loss, left eye, normal vision right eye; K21.9 Gastro-esophageal reflux disease without esophagitis; Z59.0 Homelessness; B19.20 Unspecified viral hepatitis C without hepatic coma; G89.29 Other chronic pain; M19.90 Unspecified osteoarthritis, unspecified site
CPT/HCPCS: 71046; 80053; 83880; 84484; 85025; 93005; 96372; 97161; 99285; G0378; G0480; G8978; G8979; J1650

== ENCOUNTER 2017-08-04 01:01 | Emergency (ER) | payer MEDICARE, MEDICAID ==
[2017-08-04 01:01] VITALS: BMI 22.2
[2017-08-04 01:16] VITALS: TEMP 97.4; O2SAT 99
--- NOTE | 2017-08-04 01:56 | ED PDOC ---
HPI: Chest Pain Time Seen by Provider: 08/04/17 01:17 Chief Complaint (Nursing): Chest Pain Chief Complaint (Provider): Chest Pain History Per: Patient History/Exam Limitations: no limitations Onset/Duration Of Symptoms: Persistent Current Symptoms Are (Timing): Still Present Associated Symptoms: Other (Body aches) Additional Complaint(s): 67 year old male presents to ED with complaints of chest pain and has a past medical history of COPD. Of note, patient was recently discharged from a 2 day admission for chest pain and has a history of bed seeking behavior. (+) body aches. PCP: None - Risk Factors TAD Risk Factors: Pos: Hypertension Past Medical History Reviewed: Historical Data, Nursing Documentation, Vital Signs Vital Signs: Last Vital Signs Temp 97.4 F L 08/04/17 01:13 Pulse 70 08/04/17 02:27 Resp 16 08/04/17 01:13 BP 149/79 08/04/17 01:13 Pulse Ox 99 08/04/17 02:27 - Medical History PMH: Arthritis, Back Problems, Bronchitis, COPD, Fractures (left scapula/left ribs), GERD, Chronic Pain Denies: CHF, HIV, Chronic Kidney Disease - Surgical History Surgical History: Hernia Repair - Family History Family History: States: Unknown Family Hx - Living Arrangements Living Arrangements: Other (Undomiciled) - Immunization History Hx Tetanus Toxoid Vaccination: Yes (more than 5 years ago) Hx Influenza Vaccination: No Hx Pneumococcal Vaccination: No - Home Medications Home Medications: Ambulatory Orders Medication Instructions Recorded Albuterol/Ipratropium [Combivent 1 puff IH Q6 PRN 30 Days #1 inhaler 08/01/17 Respimat] predniSONE [predniSONE Tab] 40 mg PO DAILY 3 Days #3 tab 08/01/17 - Allergies Allergies/Adverse Reactions: Allergies Allergy/AdvReac Type Severity Reaction Status Date / Time No Known Allergies Allergy Verified 07/31/17 01:46 LINDA Risk Score for UA/NSTEMI - LINDA Risk Score Age > 64: YES Known CAD (Stenosis greater than 50%): YES LINDA Score: 2 Risk %: 8% Curb-65 Severity Score - CURB-65 Severity Score Confusion: No Respiratory Rate greater than/equal to 30: No Systolic BP <90 or Diastolic BP less than/equal 60mmHg: No Age >64: Yes Curb-65 Score: 1 Percentage 30-day mortality: 2.7% Wells Criteria for PE - Wells Criteria for Pulmonary Embolism Clinical Signs and Symptoms of DVT: No Heart Rate >100: No Hemoptysis: No Total Score: 0 Review of Systems ROS Statement: Except As Marked, All Systems Reviewed And Found Negative Constitutional: Positive for: Other ((+) body aches) Cardiovascular: Positive for: Chest Pain Physical Exam - Reviewed Nursing Documentation Reviewed: Yes Vital Signs Reviewed: Yes - Physical Exam Appears: Positive for: Non-toxic, No Acute Distress Head Exam: Positive for: ATRAUMATIC, NORMAL INSPECTION, NORMOCEPHALIC Skin: Positive for: Normal Color, Warm, Dry Eye Exam: Positive for: EOMI, PERRL. Negative for: Normal appearance (patient is blind in left eye) ENT: Positive for: Normal ENT Inspection Neck: Positive for: Normal, Painless ROM Cardiovascular/Chest: Positive for: Regular Rate, Rhythm. Negative for: Murmur Respiratory: Positive for: Normal Breath Sounds. Negative for: Respiratory Distress Gastrointestinal/Abdominal: Positive for: Normal Exam, Soft. Negative for: Tenderness Extremity: Positive for: Normal ROM. Negative for: Deformity Neurologic/Psych: Positive for: Alert, Oriented. Negative for: Motor/Sensory Deficits - Laboratory Results Result Diagrams: 08/04/17 02:05 08/04/17 02:05 - ECG ECG: Positive for: Interpreted By Me, Viewed By Dc ECG Rhythm: Positive for: Sinus Rhythm Rate: 70 (taken at 01:10 08/04/2017) O2 Sat by Pulse Oximetry: 99 (RA) Pulse Ox Interpretation: Normal Medical Decision Making Medical Decision Makin Initial impression: chest pain Initial plan: * EKG * EtOH serum * Labs * UDrug screen * Tro pI * PTT/PT * CXR * Acetaminophen 650mg PO * Influenza A B * Re-eval 0415 Labs reviewed: no clinically significant abnormalities Case discussed with admitting resident Dr. Parmar, who has made arrangements for follow up in 24-48 hours. Dx: non-specific myalgias Condition: Stable ~ Scribe Attestation: Documented by Irma Uribe, acting as a scribe for Keagan Pagan MD. Provider Scribe Attestation: All medical record entries made by the Scribe were at my direction and personally dictated by me. I have reviewed the chart and agree that the record accurately reflects my personal performance of the history, physical exam, medical decision making, and the department course for this patient. I have also personally directed, reviewed, and agree with the discharge instructions and disposition. Disposition - Clinical Impression Clinical Impression: Myalgia - Disposition Disposition: Routine/Home Disposition Time: 04:15 Condition: STABLE Instructions: Muscle and Bone Pain (DC) Forms: [employer] (Panamanian)
[2017-08-04 02:49] LABS: BASO % 0.8 % (0.0-2.0); EOS # 0.2 K/uL (0.0-0.7); EOS % 4.5 % (0.0-4.0); LYMPH # 2.3 K/uL (1.0-4.3); LYMPH % 42.4 % (20.0-40.0); MEAN CELL VOLUME 101.1 fl (80.0-94.0); MEAN CORPUSCULAR HGB CONC 33.6 g/dL (33.0-37.0); MEAN PLATELET VOLUME 7.9 fl (7.2-11.7); MONO % 19.1 % (0.0-10.0); NEUT # 1.8 K/uL (1.8-7.0); NEUT % 33.2 % (50.0-75.0); NRBC % 0.3 % (0.0-0.0); RBC 4.11 Mil/uL (4.40-5.90); RED CELL DISTRIBUTION WIDTH 13.7 % (11.5-14.5); WHITE BLOOD COUNT 5.4 K/uL (4.8-10.8)
[2017-08-04 02:58] LABS: ALB/GLOB RATIO 0.9 (1.0-2.1); ALBUMIN 3.4 g/dL (3.5-5.0); ALT/SGPT 94 U/L (21-72); AST/SGOT 56 U/L (17-59); BLOOD UREA NITROGEN 28 mg/dl (9-20); CALCIUM 8.8 mg/dL (8.4-10.2); GFR AFRICAN-AMERICAN > 60; GFR NON-AFRICAN AMERICAN > 60
[2017-08-04 02:58] LABS: BARBITURATES, UR NEGATIVE (NEGATIVE); BENZODIAZEPINES, UR POSITIVE (NEGATIVE); OPIATES, UR NEGATIVE (NEGATIVE); PHENCYCLIDINE, UR NEGATIVE (NEGATIVE)
[2017-08-04 03:01] LABS: PARTIAL THROMBOPLASTIN TIME 32.9 Seconds (25.6-37.1); PROTHROMBIN TIME 11.2 Seconds (9.8-13.1)
[2017-08-04 03:06] LABS: B-TYPE NATRIURETIC PEPTIDE 89.8 pg/ml (0-900)
[2017-08-04 05:05] VITALS: BP 126/81; RESP 18
[2017-08-04 05:06] VITALS: PULSE 63
--- NOTE | 2017-08-04 08:07 | RAD ---
HISTORY: chest pain COMPARISON: Chest radiographs 07/31/2017. FINDINGS: LUNGS: No active pulmonary disease. PLEURA: No significant pleural effusion identified, no pneumothorax apparent. CARDIOVASCULAR: Normal. OSSEOUS STRUCTURES: Prior right shoulder replacement hardware again evident. VISUALIZED UPPER ABDOMEN: Normal. OTHER FINDINGS: None. IMPRESSION: No interval acute cardiopulmonary disease appreciated.
--- NOTE | 2017-08-04 11:38 | CARD ---
APPROVED REPORT EKG Measurement Heart [id number] <Conclusion> Normal sinus rhythm Normal ECG
== END 2017-08-04 04:36 | disposition home or self-care (01) ==
LOC: H.ER 01:01
DX: M79.1 Myalgia (principal); G89.29 Other chronic pain; I10 Essential (primary) hypertension; J44.9 Chronic obstructive pulmonary disease, unspecified; K21.9 Gastro-esophageal reflux disease without esophagitis
CPT/HCPCS: 71045; 80053; 83880; 84484; 85025; 85610; 85730; 87804; 93005; 99284; G0480

== ENCOUNTER 2017-10-11 03:50 | Emergency (ER) | payer MEDICARE, MEDICAID ==
[2017-10-11 03:50] VITALS: BMI 22.2
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
[2017-10-11 09:25] VITALS: BP 122/74; PULSE 79; RESP 14; TEMP 98
[2017-10-11 10:05] VITALS: O2SAT 97
--- NOTE | 2017-10-11 10:58 | CT ---
PROCEDURE: CT HEAD WITHOUT CONTRAST. HISTORY: head injury COMPARISON: None available. TECHNIQUE: Axial computed tomography images were obtained through the head/brain without intravenous contrast. Radiation dose: Total exam DLP = 737.04 mGy-cm. This CT exam was performed using one or more of the following dose reduction techniques: Automated exposure control, adjustment of the mA and/or kV according to patient size, and/or use of iterative reconstruction technique. FINDINGS: HEMORRHAGE: No intracranial hemorrhage. BRAIN: Good corticomedullary differentiation is seen. Proportional, diffuse expansion of the ventriculosulcal and cisternal spaces is appreciated with white matter lucency compatible with diffuse cerebral atrophy and chronic microangiopathy. No suspicious extra-axial fluid collection is identified and the midline brain anatomy appears grossly nonfocal as imaged. There is no mass effect throughout. VENTRICLES: Unremarkable. No hydrocephalus. CALVARIUM: No acute destructive bony lesion or displaced fracture identified including through the skullbase. Posttraumatic and postoperative changes read at the left facial bones. PARANASAL SINUSES: Unremarkable as visualized. No significant inflammatory changes. MASTOID AIR CELLS: Unremarkable as visualized. No inflammatory changes. OTHER FINDINGS: Phthisis bulbi reiterated left globe. IMPRESSION: Reiterated age related neuro degenerative changes not significantly changed compared 05/31/2017 CT. No definite acute intracranial findings by standard CT criteria. Follow-up CT or MRI can be performed as clinically warranted. Incidental note is made of stable posttraumatic and postoperative changes related to left facial bones.
== END 2017-10-11 10:27 | disposition home or self-care (01) ==
LOC: H.ER 03:50
DX: S09.90XA Unspecified injury of head, initial encounter (principal); I10 Essential (primary) hypertension; J44.9 Chronic obstructive pulmonary disease, unspecified; Z86.73 Personal history of transient ischemic attack (TIA), and cerebral infarction without residual deficits; M06.9 Rheumatoid arthritis, unspecified; G89.29 Other chronic pain; Y04.0XXA Assault by unarmed brawl or fight, initial encounter

== ENCOUNTER 2018-01-16 17:16 | Emergency (ER) | payer MEDICARE, MEDICAID ==
[2018-01-16 17:18] VITALS: BMI 22.2
[2018-01-16 17:32] VITALS: TEMP 97.9
--- NOTE | 2018-01-16 19:22 | ED PDOC ---
HPI: General Adult Time Seen by Provider: 01/16/18 17:41 Chief Complaint (Nursing): Bite Chief Complaint (Provider): Insect bites History Per: Patient History/Exam Limitations: no limitations Onset/Duration Of Symptoms: Hrs Additional Complaint(s): 67 year old male presents to the ER for an evaluation for multiple bee stings on his face, neck and arms. Patient states he walked into the bee hive and got stung multiple times. Denies shortness of breath or swelling on the face. PMD: Non H Provider Past Medical History Reviewed: Historical Data, Nursing Documentation, Vital Signs Vital Signs: Last Vital Signs Temp 97.9 F 01/16/18 17:29 Pulse 78 01/16/18 17:29 Resp 19 01/16/18 17:29 BP 182/90 H 01/16/18 17:29 Pulse Ox 100 01/16/18 17:29 - Medical History PMH: Arthritis, Back Problems, Bronchitis, COPD, Fractures (left scapula/left ribs), Gall Bladder Disease, GERD, HTN, Rheumatoid Arthritis, TIA, Chronic Pain Denies: CHF, HIV, Chronic Kidney Disease - Surgical History Surgical History: Cholecystectomy, Hernia Repair - Family History Family History: States: Unknown Family Hx - Immunization History Hx Tetanus Toxoid Vaccination: Yes (more than 5 years ago) Hx Influenza Vaccination: No Hx Pneumococcal Vaccination: No - Home Medications Home Medications: Ambulatory Orders Medication Instructions Recorded Albuterol/Ipratropium [Combivent 1 puff IH Q6 PRN 30 Days #1 inhaler 08/01/17 Respimat] predniSONE [predniSONE Tab] 40 mg PO DAILY 3 Days #3 tab 08/01/17 - Allergies Allergies/Adverse Reactions: Allergies Allergy/AdvReac Type Severity Reaction Status Date / Time No Known Allergies Allergy Verified 07/31/17 01:46 Review of Systems ROS Statement: Except As Marked, All Systems Reviewed And Found Negative ENT: Negative for: Other (facial swelling) Respiratory: Negative for: Shortness of Breath Skin: Positive for: Other (multiple bee stings) Psych: Negative for: Suicidal ideation (homicidal ideation) Physical Exam - Reviewed Nursing Documentation Reviewed: Yes Vital Signs Reviewed: Yes - Physical Exam Appears: Positive for: Non-toxic, No Acute Distress Head Exam: Positive for: ATRAUMATIC, NORMAL INSPECTION, NORMOCEPHALIC Skin: Positive for: Normal Color, Warm. Negative for: Rash Eye Exam: Positive for: Normal appearance Neck: Negative for: Normal (multiple erythematous area on neck) Neurologic/Psych: Positive for: Alert (multiple erythematous area consistent with stings ), Oriented - ECG O2 Sat by Pulse Oximetry: 100 (RA) Pulse Ox Interpretation: Normal Medical Decision Making Medical Decision Making: Time: 1827 Initial Plan: --Tylenol 650mg --predniSONE 60mg --Reevaluation Scribe Attestation: Documented by Mani Aguirre, acting as a scribe for Cheyenne Sutton PA-C. Provider Scribe Attestation: All medical record entries made by the Scribe were at my direction and personally dictated by me. I have reviewed the chart and agree that the record accurately reflects my personal performance of the history, physical exam, medical decision making, and the department course for this patient. I have also personally directed, reviewed, and agree with the discharge instructions and dis position. Disposition - Clinical Impression Clinical Impression: Bee sting - Patient ED Disposition Is Patient to be Admitted: No Counseled Patient/Family Regarding: Diagnosis, Need For Followup - Disposition Disposition: Routine/Home Disposition Time: 19:22 Condition: STABLE Instructions: Insect Bites and Stings Forms: [employer] (Albanian)
[2018-01-16 19:33] VITALS: BP 139/89; PULSE 69; RESP 18
[2018-01-16 19:34] VITALS: O2SAT 100
== END 2018-01-16 19:39 | disposition home or self-care (01) ==
LOC: H.ER 17:16
DX: T63.441A Toxic effect of venom of bees, accidental (unintentional), initial encounter (principal); W57.XXXA Bitten or stung by nonvenomous insect and other nonvenomous arthropods, initial encounter; Y92.89 Other specified places as the place of occurrence of the external cause

== ENCOUNTER 2018-02-23 01:35 | Emergency (ER) | payer MEDICARE, MEDICAID ==
[2018-02-23 01:36] VITALS: BMI 22.2
[2018-02-23 01:46] VITALS: TEMP 97.5
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
[2018-02-23 04:41] VITALS: BP 140/87; PULSE 74; RESP 16
[2018-02-23 05:02] VITALS: O2SAT 98
== END 2018-02-23 04:57 | disposition home or self-care (01) ==
LOC: H.ER 01:35
DX: S09.90XA Unspecified injury of head, initial encounter (principal); S01.01XD Laceration without foreign body of scalp, subsequent encounter; V49.9XXD Car occupant (driver) (passenger) injured in unspecified traffic accident, subsequent encounter; G89.29 Other chronic pain; I10 Essential (primary) hypertension; J44.9 Chronic obstructive pulmonary disease, unspecified; Z86.73 Personal history of transient ischemic attack (TIA), and cerebral infarction without residual deficits

== ENCOUNTER 2018-02-27 01:00 | Emergency (ER) | payer MEDICARE, MEDICAID ==
[2018-02-27 01:00] VITALS: BMI 22.2
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
[2018-02-27 06:04] VITALS: BP 122/72; PULSE 78; RESP 18; TEMP 98.2; O2SAT 98
== END 2018-02-27 06:03 | disposition home or self-care (01) ==
LOC: H.ER 01:00
DX: R51 Headache (principal)

== ENCOUNTER 2018-03-08 02:43 | Emergency (ER) | payer MEDICARE, MEDICAID ==
[2018-03-08 02:44] VITALS: BMI 22.2
[2018-03-08 04:13] LABS: BASO % 0.5 % (0.0-2.0); EOS # 0.2 K/uL (0.0-0.7); EOS % 3.7 % (0.0-4.0); HEMOGLOBIN 13.5 g/dL (12.0-18.0); LYMPH # 1.8 K/uL (1.0-4.3); LYMPH % 35.2 % (20.0-40.0); MEAN CORPUSCULAR HEMOGLOBIN 34.1 pg (27.0-31.0); MEAN CORPUSCULAR HGB CONC 33.5 g/dL (33.0-37.0); MEAN PLATELET VOLUME 7.6 fl (7.2-11.7); MONO # 0.8 K/uL (0.0-0.8); MONO % 15.6 % (0.0-10.0); NEUT # 2.2 K/uL (1.8-7.0); RBC 3.97 Mil/uL (4.40-5.90); RED CELL DISTRIBUTION WIDTH 12.5 % (11.5-14.5)
[2018-03-08 04:35] LABS: ALT/SGPT 107 U/L (21-72); AST/SGOT 74 U/L (17-59); BLOOD UREA NITROGEN 17 mg/dl (9-20); GFR NON-AFRICAN AMERICAN > 60
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
[2018-03-08 06:56] VITALS: BP 143/90; PULSE 64; RESP 16; TEMP 97.6
--- NOTE | 2018-03-08 08:43 | CARD ---
APPROVED REPORT Date of service: 03/08/2018 EKG Measurement Heart [id number] <Conclusion> Sinus rhythm with premature atrial complexes Otherwise normal ECG
[2018-03-08 20:25] VITALS: O2SAT 98
== END 2018-03-08 06:40 | disposition home or self-care (01) ==
LOC: H.ER 02:43
DX: R55 Syncope and collapse (principal); M54.9 Dorsalgia, unspecified; G89.29 Other chronic pain; I10 Essential (primary) hypertension; I49.1 Atrial premature depolarization; J44.9 Chronic obstructive pulmonary disease, unspecified; K21.9 Gastro-esophageal reflux disease without esophagitis
CPT/HCPCS: 80053; 84484; 85025; 93005; 96372; 99285; J1885

== ENCOUNTER 2018-03-11 17:03 | Emergency (ER) | payer MEDICARE, MEDICAID ==
[2018-03-11 17:03] VITALS: BMI 22.2
--- NOTE | 2018-03-11 17:56 | ED PDOC ---
HPI: Trauma/Fall - HPI Time Seen by Provider: 03/11/18 17:38 Chief Complaint (Nursing): Trauma Chief Complaint (Provider): Trauma History Per: Patient History/Exam Limitations: no limitations Injury Occurred (Timing): Just Before Arrival Location Of Injury: Posterior: Head Additional Complaint(s): 67 y/o male was brought to the ED by ambulance with a head injury. Patient doesn't remember what happened and admits to drinking. Past Medical History Reviewed: Historical Data, Nursing Documentation, Vital Signs Vital Signs: Last Vital Signs Temp 96.7 F L 03/11/18 17:07 Pulse 75 03/11/18 17:07 Resp 20 03/11/18 17:07 BP 172/113 H 03/11/18 17:07 Pulse Ox 99 03/11/18 17:07 - Medical History PMH: Arthritis, Back Problems, Bronchitis, COPD, Fractures (left scapula/left ribs), Gall Bladder Disease, GERD, HTN, Rheumatoid Arthritis, TIA, Chronic Pain Denies: CHF, HIV, Chronic Kidney Disease - Surgical History Surgical History: Cholecystectomy, Hernia Repair - Family History Family History: States: Unknown Family Hx - Immunization History Hx Tetanus Toxoid Vaccination: Yes (more than 5 years ago) Hx Influenza Vaccination: No Hx Pneumococcal Vaccination: No - Home Medications Home Medications: Ambulatory Orders Medication Instructions Recorded Cyclobenzaprine [Cyclobenzaprine 10 mg PO Q8H PRN 7 Days tab 03/08/18 HCl] Ibuprofen [Motrin Tab] 800 mg PO Q6 PRN 5 Days tab 03/08/18 Naproxen [Naprosyn] 500 mg PO BID #30 tablet 03/12/18 - Allergies Allergies/Adverse Reactions: Allergies Allergy/AdvReac Type Severity Reaction Status Date / Time No Known Allergies Allergy Verified 03/11/18 17:06 Review of Systems ROS Statement: Except As Marked, All Systems Reviewed And Found Negative Musculoskeletal: Positive for: Other (posterior head injury) Physical Exam - Reviewed Nursing Documentation Reviewed: Yes Vital Signs Reviewed: Yes - Physical Exam Head Exam: Negative for: ATRAUMATIC (irregular laceration to posterior scalp) Skin: Positive for: Normal Color, Warm, DRY Cardiovascular/Chest: Positive for: Regular Rate, Rhythm. Negative for: Murmur Respiratory: Positive for: Normal Breath Sounds. Negative for: Respiratory Distress Back: Negative for: Vertebral Tenderness (C-spine tenderness) Neurologic/Psych: Positive for: Alert, Oriented (x2). Negative for: Motor/Sensory Deficits - Laboratory Results Result Diagrams: 03/11/18 18:28 03/11/18 18:28 - ECG O2 Sat by Pulse Oximetry: 99 (RA) Pulse Ox Interpretation: Normal Medical Decision Making Medical Decision Making: Time: 17:40 Initial Impression: head injury Initial Plan: * CT Cervical spine * CT Head * EKG * CMP * Drug screen * Troponin * CBC w/ diff * PTT * Prothrombin time * CXR * UA Scribe Attestation: Documented by Juan Manuel Omer acting as a scribe for Anna Marie Meadows MD. Provider Scribe Attestation: All medical record entries made by the Scribe were at my direction and personally dictated by me. I have reviewed the chart and agree that the record accurately reflects my personal performance of the history, physical exam, medical decision making, and the department course for this patient. I have also personally directed, reviewed, and agree with the discharge instructions and disposition. Disposition - Clinical Impression Clinical Impression: Head injury, Alcohol intoxication - Disposition Referrals: Alcoholics Anonymous [Outside] Disposition: Transfer of Care Disposition Time: 20:00 Condition: IMPROVED Prescriptions: Naproxen [Naprosyn] 500 mg PO BID #30 tablet Instructions: Closed Head Injury (DC), Laceration Repair With Pattie (DC) Forms: [employer] (Andorran) Patient Signed Over To: Baltazar Soto Laceration - Laceration Repair No standard instances Wound Length (In cm): 5 Description Of Wound: Irregular Wound Cleansed With: Sterile Saline Wound Examination: Irrigated With Saline Wound Closure: Pattie (10) Wound Complexity: Simple
--- NOTE | 2018-03-11 17:59 | RAD ---
Date of service: 03/11/2018 HISTORY: Fall COMPARISON: 08/04/2017 FINDINGS: LUNGS: The lungs are well inflated and clear. PLEURA: No pleural effusions or pneumothorax. CARDIOVASCULAR: The heart is normal in size. No aortic atherosclerotic calcification present. OSSEOUS STRUCTURES: Within normal limits for the patient's age. Status post right shoulder arthroplasty. VISUALIZED UPPER ABDOMEN: Normal. OTHER FINDINGS: None. IMPRESSION: No acute findings.
[2018-03-11] MEDS ORDERED: Tdap Vaccine 0.5 ml Vial (10-64 yrs) IM ONE ×2 (18:00→18:57)
[2018-03-11 18:18] LABS: URINE BILIRUBIN NEGATIVE (NEGATIVE); URINE BLOOD NEGATIVE (NEGATIVE); URINE CLARITY CLEAR (Clear); URINE COLOR STRAW (YELLOW); URINE GLUCOSE (UA) NEG (Normal); URINE LEUKOCYTE ESTERASE NEG Leu/uL (Negative); URINE PROTEIN NEGATIVE (NEGATIVE); URINE UROBILINOGEN 0.2-1.0 mg/dL (0.2-1.0)
--- NOTE | 2018-03-11 18:32 | CT ---
Date of service: 03/11/2018 PROCEDURE: CT HEAD WITHOUT CONTRAST. HISTORY: Fall COMPARISON: 10/11/2017. TECHNIQUE: Axial computed tomography images were obtained through the head/brain without intravenous contrast. Radiation dose: Total exam DLP = 826.89 mGy-cm. This CT exam was performed using one or more of the following dose reduction techniques: Automated exposure control, adjustment of the mA and/or kV according to patient size, and/or use of iterative reconstruction technique. FINDINGS: HEMORRHAGE: No intracranial hemorrhage. BRAIN: There is redemonstration of old infarctions in the left external capsule. There are mild chronic microangiopathic changes there are old infarctions in the left cerebellar hemisphere.. There is no mass, mass effect or abnormal extra-axial fluid collection. There is no territorial infarction. The midline sagittal structures are normal. VENTRICLES: There is mild age-related global parenchymal volume loss and proportionate enlargement of the ventricles and cortical sulci. CALVARIUM: There is no calvarial fracture. There is moderate right parietal scalp hematoma. PARANASAL SINUSES: There is complete opacification of the left maxillary sinus. There is polypoid mucosal thickening in the right sphenoid chamber and right frontal sinus. There is scattered mucosal thickening in the ethmoid air cells. The mastoid air cells are clear. MASTOID AIR CELLS: Predominantly clear. OTHER FINDINGS: The right globe is normal in appearance. 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 IMPRESSION: No acute intracranial abnormality. Moderate right parietal scalp hematoma. Chronic right frontal, right sphenoid and left maxillary sinusitis. Mild chronic microangiopathic changes and mild age-related global parenchymal volume loss. 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
[2018-03-11 18:36] LABS: BASO # 0.1 K/uL (0.0-0.2); BASO % 1.1 % (0.0-2.0); EOS # 0.1 K/uL (0.0-0.7); HEMOGLOBIN 14.4 g/dL (12.0-18.0); LYMPH # 1.7 K/uL (1.0-4.3); MEAN CELL VOLUME 101.9 fl (80.0-94.0); MEAN CORPUSCULAR HEMOGLOBIN 34.3 pg (27.0-31.0); MEAN CORPUSCULAR HGB CONC 33.7 g/dL (33.0-37.0); MEAN PLATELET VOLUME 7.4 fl (7.2-11.7); MONO # 0.7 K/uL (0.0-0.8); MONO % 12.6 % (0.0-10.0); NEUT # 3.2 K/uL (1.8-7.0); NEUT % 55.3 % (50.0-75.0); NRBC % 0.1 % (0.0-0.0); RBC 4.21 Mil/uL (4.40-5.90); RED CELL DISTRIBUTION WIDTH 12.5 % (11.5-14.5); WHITE BLOOD COUNT 5.7 K/uL (4.8-10.8)
--- NOTE | 2018-03-11 18:36 | CT ---
Date of service: 03/11/2018 PROCEDURE: CT Cervical Spine without contrast HISTORY: Fall COMPARISON: None available. TECHNIQUE: Axial computed tomography images were obtained of the cervical spine without the use of intravenous contrast. Coronal and sagittal reformatted images were created and reviewed. Radiation dose: Total exam DLP = 281.3 mGy-cm. This CT exam was performed using one or more of the following dose reduction techniques: Automated exposure control, adjustment of the mA and/or kV according to patient size, and/or use of iterative reconstruction technique. FINDINGS: VERTEBRAE: There is mild dextroscoliosis in the cervical spine. There is degenerative 4 mm anterior listhesis of C4 on C5 and 3 mm retrolisthesis of C5 on C6. There is straightening of the cervical spine with loss of normal cervical lordosis. There is diffuse bone demineralization. There is no acute fracture or traumatic anterior listhesis. The craniocervical junction is normal. There is mild degenerative osteoarthrosis at the atlantoaxial joint. DISCS/SPINAL CANAL/NEURAL FORAMINA: There is multilevel degenerative disc disease due to combination of disc osteophyte complexes, uncovertebral joint hypertrophy and multilevel facet arthropathy, worse at C5-6 with severe right and mild left neural foraminal narrowing. No spinal canal stenosis. PARASPINAL SOFT TISSUES: The paraspinous soft tissues are normal. No prevertebral soft tissue thickening. OTHER FINDINGS: None. IMPRESSION: No acute fracture or traumatic anterior listhesis. Straightening of the cervical spine may be positional or related to muscle spasm.
[2018-03-11 18:43] LABS: PROTHROMBIN TIME 11.1 Seconds (9.8-13.1)
[2018-03-11 18:46] LABS: PARTIAL THROMBOPLASTIN TIME 36.1 Seconds (25.6-37.1)
[2018-03-11 18:50] LABS: BARBITURATES, UR NEGATIVE (NEGATIVE); BENZODIAZEPINES, UR NEGATIVE (NEGATIVE); OPIATES, UR NEGATIVE (NEGATIVE); PHENCYCLIDINE, UR NEGATIVE (NEGATIVE)
[2018-03-11 18:50] LABS: ALBUMIN 4.1 g/dL (3.5-5.0); ALT/SGPT 134 U/L (21-72); AST/SGOT 103 U/L (17-59); BLOOD UREA NITROGEN 15 mg/dl (9-20); CALCIUM 8.7 mg/dL (8.4-10.2); GFR NON-AFRICAN AMERICAN > 60
--- NOTE | 2018-03-11 21:37 | ED PDOC ---
- Laboratory Results Result Diagrams: 03/11/18 18:28 03/11/18 18:28 - ECG O2 Sat by Pulse Oximetry: 99 (RA) Pulse Ox Interpretation: Normal Medical Decision Making Medical Decision MakinPM Patient endorsed to me by Dr. Meadows pending sobriety and ETOH level. 5AM Patient is awake, alert. One additional staple was provided to scalp for proper closure. Advised to return in 10 days for staple removal. Steady gait upon discharge. Disposition - Clinical Impression Clinical Impression: Head injury, Alcohol intoxication - POA Present On Arrival: None - Disposition Referrals: Alcoholics Anonymous [Outside] Disposition: Routine/Home Disposition Time: 05:06 Condition: IMPROVED Prescriptions: Naproxen [Naprosyn] 500 mg PO BID #30 tablet Instructions: Closed Head Injury (DC), Laceration Repair With Blachly (DC) Forms: [employer] (Tajik)
[2018-03-11] MEDS ORDERED: Lidocaine 1% Inj (20ml) ONE (23:24)
[2018-03-12 06:11] VITALS: BP 120/69; PULSE 76; RESP 18; TEMP 99.2
--- NOTE | 2018-03-12 09:32 | CARD ---
APPROVED REPORT Date of service: 03/11/2018 EKG Measurement Heart [id number] <Conclusion> Normal sinus rhythm Normal ECG
[2018-03-16 16:04] VITALS: O2SAT 99
== END 2018-03-12 05:50 | disposition home or self-care (01) ==
LOC: H.ER 17:03
DX: F10.129 Alcohol abuse with intoxication, unspecified (principal); S09.90XA Unspecified injury of head, initial encounter; S01.01XA Laceration without foreign body of scalp, initial encounter; W19.XXXA Unspecified fall, initial encounter; Y92.89 Other specified places as the place of occurrence of the external cause; I10 Essential (primary) hypertension; Z86.73 Personal history of transient ischemic attack (TIA), and cerebral infarction without residual deficits; G89.29 Other chronic pain; K21.9 Gastro-esophageal reflux disease without esophagitis
CPT/HCPCS: 12001; 70450; 71045; 72125; 80053; 81003; 82948; 84484; 85025; 85610; 85730; 90471; 90715; 93005; 99285; G0480

== ENCOUNTER 2018-03-21 13:40 | Emergency (ER) | payer MEDICARE, MEDICAID ==
[2018-03-21 13:40] VITALS: BMI 22.2
[2018-03-21 14:00] VITALS: BP 154/89; PULSE 82; RESP 16; TEMP 97.1; O2SAT 99
[2018-03-21] MEDS ORDERED: Hydrogen Peroxide 3% Soln (480ml) TP ONE (16:40)
[2018-03-21] MEDS ORDERED: Oxycodone/Acetaminophen 5/325 mg Tab PO ONE (17:40)
[2018-03-21] MEDS ORDERED: Oxycodone/Acetaminophen 5/325 mg Tab ONE (18:01)
--- NOTE | 2018-03-21 20:20 | ED PDOC ---
HPI: Wound Care - HPI Time Seen by Provider: 03/21/18 15:48 Chief Complaint (Nursing): Suture/Staple Removal Chief Complaint (Provider): Suture/Staple Removal History Per: Patient Exam Limitations: no limitations Additional Complaint(s): 67 y/o male with history of TIA and chronic falls due to alcohol abuse who was seen here in the ED on 03/11 with head trauma while drinking alcohol requiring 14 gretel returns to the ED today for staple removal. Since discharge patient states he has had persisting mild headache and dizziness with feelings of mild gait instability. Patient denies visual changes or recurrent fall since discharge. He does admit to mild hand tingling. Patient states he has not cleaned the area on his scalp since he was last seen in the ED as he thought he was told not to. Dizziness and headache is no worse today than they were over the past week. Past Medical History Reviewed: Historical Data, Nursing Documentation, Vital Signs Vital Signs: Last Vital Signs Temp 97.1 F L 03/21/18 13:57 Pulse 82 03/21/18 13:57 Resp 16 03/21/18 13:57 BP 154/89 H 03/21/18 13:57 Pulse Ox 99 03/21/18 13:57 - Medical History PMH: Arthritis, Back Problems, Bronchitis, COPD, Fractures (left scapula/left ribs), Gall Bladder Disease, GERD, HTN, Rheumatoid Arthritis, TIA, Chronic Pain Denies: CHF, HIV, Chronic Kidney Disease - Surgical History Surgical History: Cholecystectomy, Hernia Repair - Family History Family History: States: Unknown Family Hx - Immunization History Hx Tetanus Toxoid Vaccination: Yes (more than 5 years ago) Hx Influenza Vaccination: No Hx Pneumococcal Vaccination: No - Home Medications Home Medications: Ambulatory Orders Medication Instructions Recorded Cyclobenzaprine [Cyclobenzaprine 10 mg PO Q8H PRN 7 Days tab 03/08/18 HCl] Ibuprofen [Motrin Tab] 800 mg PO Q6 PRN 5 Days tab 03/08/18 Naproxen [Naprosyn] 500 mg PO BID #30 tablet 03/12/18 Ibuprofen [Motrin Tab] 600 mg PO Q6 PRN 5 Days tab 03/21/18 - Allergies Allergies/Adverse Reactions: Allergies Allergy/AdvReac Type Severity Reaction Status Date / Time No Known Allergies Allergy Verified 03/21/18 13:57 Review of Systems ROS Statement: Except As Marked, All Systems Reviewed And Found Negative Neurological: Positive for: Numbness (hand tingling), Incoordination (gait instability), Headache, Dizziness Physical Exam - Reviewed Nursing Documentation Reviewed: Yes Vital Signs Reviewed: Yes - Physical Exam Appears: Positive for: No Acute Distress Head Exam: Negative for: ATRAUMATIC (14 gretel within large scab on scalp; mild scalp hematoma surrounding scab noted; no active bleeding; no purulent drainage or erythema) Eye Exam: Positive for: EOMI Neck: Positive for: Painless ROM (full ROM with lateral rotation), Decreased ROM (with extension of neck (chronic)) Neurologic/Psych: Positive for: Alert, Oriented, Gait (normal), Other (normal proprioception with alternating fingers to nose; meter 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 Negative for: Motor/Sensory Deficits - ECG O2 Sat by Pulse Oximetry: 99 (RA) Pulse Ox Interpretation: Normal Medical Decision Making Medical Decision Making: Time: 17:40 Initial Impression: suture removal Initial Plan: * Attempted to moisten scalp in order to remove gretel with bleeding noted * Manual compression of hematoma performed after patient given Percocet 5/325 PO x1 * Successful manual drainage of hematoma 14 gretel removed patient tolerated procedure well 19:50 * Head CT w/o contrast * Toradol 30 mg 20:37 CT Head w/o contrast IMPRESSION: No acute intracranial abnormality. Chronic changes. No significant change compared to previous study. 21:[address] reviewed and patient reevaluated. Patient reports dizziness and headache improved. Patient is refusing Toradol and is able to walk to the bathroom with steady gait. Stable for d/c home. Scribe Attestation: Documented by Juan Manuel Omer, acting as a scribe for Brianna Pearl PA-C. Provider Scribe Attestation: All medical record entries made by the Scribe were at my direction and personally dictated by me. I have reviewed the chart and agree that the record accurately reflects my personal performance of the history, physical exam, medical decision making, and the department course for this patient. I have also personally directed, reviewed, and agree with the discharge instructions and disposition. Disposition - Clinical Impression Clinical Impression: Removal of gretel, Scalp laceration - Patient ED Disposition Is Patient to be Admitted: No Counseled Patient/Family Regarding: Studies Performed, Diagnosis, Need For Followup, Rx Given - Disposition Referrals: [facility] [Outside] Disposition: Routine/Home Disposition Time: 21:20 Condition: STABLE Additional Instructions: Return to ER if your dizziness or Headache worsen or if you begin bleeding from your scalp again. Return to ER if you develop fevers, chills or develop pus drainage from scalp lesion. Avoid excessive drinking as recurrent falls with head trauma will lead to further bleeding. Prescriptions: Ibuprofen [Motrin Tab] 600 mg PO Q6 PRN 5 Days tab PRN Reason: Pain, Moderate (4-7) Forms: [employer] (Kyrgyz) Print Language: PORTUGUESE
--- NOTE | 2018-03-22 07:27 | CT ---
Date of service: 03/21/2018 PROCEDURE: CT HEAD WITHOUT CONTRAST. HISTORY: persistent dizziness and ESPINO since fall on 03/11 COMPARISON: None available. TECHNIQUE: Axial computed tomography images were obtained through the head/brain without intravenous contrast. Radiation dose: Total exam DLP = 828.24 mGy-cm. This CT exam was performed using one or more of the following dose reduction techniques: Automated exposure control, adjustment of the mA and/or kV according to patient size, and/or use of iterative reconstruction technique. FINDINGS: HEMORRHAGE: No intracranial hemorrhage. BRAIN: No mass effect or edema. No atrophy or chronic microvascular ischemic changes. VENTRICLES: Unremarkable. No hydrocephalus. CALVARIUM: Unremarkable. PARANASAL SINUSES: Unremarkable as visualized. No significant inflammatory changes. MASTOID AIR CELLS: Unremarkable as visualized. No inflammatory changes. OTHER FINDINGS: None. IMPRESSION: No acute hemorrhage.
== END 2018-03-21 21:34 | disposition home or self-care (01) ==
LOC: H.ER 13:40
DX: Z48.02 Encounter for removal of sutures (principal); G89.29 Other chronic pain; I10 Essential (primary) hypertension; Z86.73 Personal history of transient ischemic attack (TIA), and cerebral infarction without residual deficits

== ENCOUNTER 2018-03-22 05:10 | Emergency (ER) | payer MEDICARE, MEDICAID ==
[2018-03-22 05:10] VITALS: BMI 22.2
[2018-03-22 05:35] VITALS: PULSE 87; TEMP 98.6
--- NOTE | 2018-03-22 06:07 | ED PDOC ---
HPI: Skin/Bite Injury Time Seen by Provider: 03/22/18 05:27 Chief Complaint (Nursing): Lower Extremity Problem/Injury Chief Complaint (Provider): Right sided head pain History Per: Patient History/Exam Limitations: no limitations Onset/Duration Of Symptoms: Days Quality Of Symptoms: Painful Severity: Severe Pain Scale Rating Of: 8 Additional Complaint(s): 67 yo male, well known to ER, with HTN, GERD, COPD and chronic pain presents for evaluation of right head pain. PT was seen earlier in the day for pain in the sa me area after gretel removed. Pt states he took motrin at home which did not help his pain. CT completed today which was normal. No new complaint since previous visit. Past Medical History Reviewed: Historical Data, Nursing Documentation, Vital Signs Vital Signs: Last Vital Signs Temp 98.6 F 03/22/18 05:18 Pulse 87 03/22/18 05:18 Resp 18 03/22/18 05:18 BP 159/94 H 03/22/18 05:18 Pulse Ox 100 03/22/18 05:18 - Medical History PMH: Arthritis, Back Problems, Bronchitis, COPD, Fractures (left scapula/left ribs), Gall Bladder Disease, GERD, HTN, Rheumatoid Arthritis, TIA, Chronic Pain Denies: CHF, HIV, Chronic Kidney Disease - Surgical History Surgical History: Cholecystectomy, Hernia Repair - Family History Family History: States: Unknown Family Hx - Immunization History Hx Tetanus Toxoid Vaccination: Yes (more than 5 years ago) Hx Influenza Vaccination: No Hx Pneumococcal Vaccination: No - Home Medications Home Medications: Ambulatory Orders Medication Instructions Recorded Cyclobenzaprine [Cyclobenzaprine 10 mg PO Q8H PRN 7 Days tab 03/08/18 HCl] RX: Ibuprofen [Motrin Tab] 800 mg PO Q6 PRN 5 Days tab 03/08/18 Naproxen [Naprosyn] 500 mg PO BID #30 tablet 03/12/18 RX: Ibuprofen [Motrin Tab] 600 mg PO Q6 PRN 5 Days tab 03/21/18 Cephalexin [Keflex] 500 mg PO BID #14 capsule 03/22/18 - Allergies Allergies/Adverse Reactions: Allergies Allergy/AdvReac Type Severity Reaction Status Date / Time No Known Allergies Allergy Verified 03/22/18 05:20 Review of Systems ROS Statement: Except As Marked, All Systems Reviewed And Found Negative Constitutional: Negative for: Fever, Chills Cardiovascular: Negative for: Chest Pain Respiratory: Negative for: Cough, Shortness of Breath Gastrointestinal: Negative for: Nausea, Vomiting, Abdominal Pain, Diarrhea Skin: Positive for: Other Physical Exam - Reviewed Nursing Documentation Reviewed: Yes Vital Signs Reviewed: Yes - Physical Exam Appears: Positive for: Well, Non-toxic, No Acute Distress Head Exam: Positive for: ATRAUMATIC, NORMAL INSPECTION, NORMOCEPHALIC Skin: Positive for: Warm. Negative for: Normal Color ((+) tenderness over the right posterior scalp were gretel removed, (+) scabbing in area and mild bleeding from one area) Eye Exam: Negative for: Normal appearance (Chronic abnormalities of the left eye ) ENT: Positive for: Normal ENT Inspection Neck: Positive for: Normal, Painless ROM Cardiovascular/Chest: Positive for: Regular Rate, Rhythm. Negative for: Bradycardia, Tachycardia Respiratory: Positive for: Normal Breath Sounds. Negative for: Accessory Muscle Use Back: Positive for: Normal Inspection Extremity: Positive for: Normal ROM Neurologic/Psych: Positive for: Alert, Oriented, Gait (Baseline with cane ) - ECG O2 Sat by Pulse Oximetry: 100 Pulse Ox Interpretation: Normal Disposition - Clinical Impression Clinical Impression: Visit for wound check - Patient ED Disposition Is Patient to be Admitted: No Counseled Patient/Family Regarding: Diagnosis, Need For Followup, Rx Given - Disposition Disposition: Routine/Home Disposition Time: 06:06 Condition: GOOD Prescriptions: Cephalexin [Keflex] 500 mg PO BID #14 capsule Forms: [employer] (Spanish)
[2018-03-22 07:01] VITALS: BP 145/89; RESP 20
[2018-03-22 20:27] VITALS: O2SAT 100
== END 2018-03-22 07:05 | disposition home or self-care (01) ==
LOC: H.ER 05:10
DX: R51 Headache (principal)

== ENCOUNTER 2018-03-26 21:48 | Emergency (ER) | payer MEDICARE, MEDICAID ==
[2018-03-26 21:48] VITALS: BMI 22.2
[2018-03-26 21:59] VITALS: TEMP 97.4; O2SAT 99
--- NOTE | 2018-03-26 22:43 | ED PDOC ---
HPI: Trauma/Fall - HPI Time Seen by Provider: 03/26/18 22:23 Chief Complaint (Nursing): Hip Pain Chief Complaint (Provider): R hip pain History Per: Patient History/Exam Limitations: no limitations Onset/Duration Of Symptoms: Sudden Onset Injury Occurred (Timing): Days Ago: (1) Anterior Full Body: 1 - pain Posterior Full Body: 1 - wound Additional Complaint(s): 67yo male represents to ED c/o R hip pain s/p fall yesterday. States also hit back of his head, denies LOC, current headache, vomiting or weakness. Prior charts reviewed, recurrent visits for falls, appears homeless. Past Medical History Reviewed: Historical Data, Nursing Documentation, Vital Signs Vital Signs: Last Vital Signs Temp 97.4 F L 03/26/18 21:56 Pulse 88 03/26/18 21:56 Resp 16 03/26/18 21:56 BP 148/90 03/26/18 21:56 Pulse Ox 99 03/26/18 21:56 - Medical History PMH: Arthritis, Back Problems, Bronchitis, COPD, Fractures (left scapula/left ribs), Gall Bladder Disease, GERD, HTN, Rheumatoid Arthritis, TIA, Chronic Pain Denies: CHF, HIV, Chronic Kidney Disease - Surgical History Surgical History: Cholecystectomy, Hernia Repair - Family History Family History: States: Unknown Family Hx - Immunization History Hx Tetanus Toxoid Vaccination: Yes (more than 5 years ago) Hx Influenza Vaccination: No Hx Pneumococcal Vaccination: No - Home Medications Home Medications: Ambulatory Orders Medication Instructions Recorded Cyclobenzaprine [Cyclobenzaprine 10 mg PO Q8H PRN 7 Days tab 03/08/18 HCl] Ibuprofen [Motrin Tab] 800 mg PO Q6 PRN 5 Days tab 03/08/18 Naproxen [Naprosyn] 500 mg PO BID #30 tablet 03/12/18 Ibuprofen [Motrin Tab] 600 mg PO Q6 PRN 5 Days tab 03/21/18 Cephalexin [Keflex] 500 mg PO BID #14 capsule 03/22/18 - Allergies Allergies/Adverse Reactions: Allergies Allergy/AdvReac Type Severity Reaction Status Date / Time No Known Allergies Allergy Verified 03/26/18 21:56 Review of Systems Constitutional: Negative for: Fever ENT: Negative for: Nose Discharge Cardiovascular: Negative for: Chest Pain, Palpitations Respiratory: Negative for: Shortness of Breath Gastrointestinal: Negative for: Abdominal Pain Genitourinary Male: Negative for: Dysuria Musculoskeletal: Positive for: Other (hip pain). Negative for: Neck Pain Skin: Negative for: Rash, Lesions Neurological: Negative for: Weakness, Numbness, Headache Physical Exam - Reviewed Nursing Documentation Reviewed: Yes Vital Signs Reviewed: Yes - Physical Exam Appears: Positive for: Well, Non-toxic, No Acute Distress Head Exam: Positive for: NORMAL INSPECTION, NORMOCEPHALIC. Negative for: ATRAUMATIC (dried blood to posterior scalp) Skin: Positive for: Normal Color, Warm, DRY Eye Exam: Positive for: EOMI, Normal appearance, PERRL ENT: Positive for: Normal ENT Inspection Neck: Positive for: Normal, Painless ROM Cardiovascular/Chest: Positive for: Regular Rate, Rhythm, Chest Non Tender Respiratory: Positive for: CNT, Normal Breath Sounds Pulses-Radial (L): 3+/4+ Pulses-Radial (R): 3+/4+ Gastrointestinal/Abdominal: Positive for: Soft. Negative for: Tenderness Back: Positive for: Normal Inspection Extremity: Positive for: Normal ROM, Tenderness (mild R hip tenderness). Negative for: Deformity, Swelling Neurologic/Psych: Positive for: Alert, Oriented, Gait (stable w cane). Negative for: Motor/Sensory Deficits - ECG O2 Sat by Pulse Oximetry: 99 Medical Decision Making Medical Decision Making: CT brain ordered given dried blood scalp XRay hip ordered tylenol ordered for pain 2336 CT Head Findings: Findings: The ventricles and sulci are symmetric bilaterally. There is no evidence of acute hemorrhage or infarct. There is no midline shift, mass effect, or extra-axial fluid collection. The osseous structures are stable. There is chronic deformity in the region of the left orbit. The visualized paranasal sinuses and mastoid air cells are clear. Impression: No acute intracranial hemorrhage or infarct. Overall, the findings are stable since the prior examination. Disposition - Clinical Impression Clinical Impression: Hip pain, Head injury, Scalp wound - Patient ED Disposition Is Patient to be Admitted: Transfer of Care - Disposition Disposition: Transfer of Care Disposition Time: 23:50 Condition: STABLE Forms: [facility] (Yi) Patient Signed Over To: Baltazar Soto Handoff Comments: pending re-eval dispo wound check - POA Present On Arrival: Falls Or Trauma
[2018-03-26] MEDS ORDERED: Hydrogen Peroxide 3% Soln (480ml) TP ONE (22:57)
--- NOTE | 2018-03-27 05:24 | ED PDOC ---
- ECG O2 Sat by Pulse Oximetry: 99 Pulse Ox Interpretation: Normal Medical Decision Making Medical Decision Makin Patient endorsed to me pending re-eval 0300 Patient has healing scab to scalp, slight oozing from cleaning, no pus or drainage 0500 Patient awake and alert, steady gait (uses cane) Stable for discharge Disposition - Clinical Impression Clinical Impression: Hip pain, Head injury, Scalp wound - POA Present On Arrival: None - Disposition Referrals: Brittney Adamson MD [Family Provider] - [facility] [place] [Outside] Disposition: Routine/Home Disposition Time: 05:23 Condition: STABLE Prescriptions: Naproxen [Naprosyn] 500 mg PO BID #30 tablet Instructions: Closed Head Injury (DC), Hip Pain in Older People Forms: [facility] (Macedonian)
[2018-03-27 06:49] VITALS: BP 134/87; PULSE 84; RESP 17
--- NOTE | 2018-03-27 10:39 | RAD ---
Date of service: 03/26/2018 PROCEDURE: RIGHT HIP WITH PELVIS RADIOGRAPHS HISTORY: fall COMPARISON: None available. TECHNIQUE: Frontal views the right hip and pelvis been submitted for interpretation as well as right hip frog-leg lateral view. FINDINGS: Pelvic ring is intact without fracture including the pubic bones. Pubic symphysis appears intact. Diffuse osteopenia suggests osteoporosis. No destructive bony lesion is identified throughout. This includes the right hip joint. Bilateral hip and sacroiliac joints appear intact although degenerative sclerosis appreciated on a moderate basis of the bilateral hip joints and a mild basis at the bilateral sacroiliac joints. Sacrum is grossly intact with arcades unremarkable appearing. Iliac and innominate bones appear unremarkable as imaged. Vascular calcification identified at the left greater than right inferior pelvic soft tissues as well as left greater than right inguinal regions. IMPRESSION: Diffuse osteopenia suggests osteoporosis. No acute fracture or dislocation right hip joint or the entire pelvic ring as discussed above.
--- NOTE | 2018-03-27 11:10 | CT ---
Date of service: 03/26/2018 PROCEDURE: CT HEAD WITHOUT CONTRAST. HISTORY: r/o ICH COMPARISON: Noncontrast head CT 03/21/2018. TECHNIQUE: Axial computed tomography images were obtained through the head/brain without intravenous contrast. Radiation dose: Total exam DLP = 742.31 mGy-cm. This CT exam was performed using one or more of the following dose reduction techniques: Automated exposure control, adjustment of the mA and/or kV according to patient size, and/or use of iterative reconstruction technique. FINDINGS: HEMORRHAGE: No intracranial hemorrhage. BRAIN: A small chronic lobar infarction is seen at the left frontal base, cephalad to the sphenoid bone. Limited diffuse cerebral atrophy chronic microangiopathy are reiterated otherwise. No mass effect or suspicious extra-axial collection evident. Corticomedullary differentiation is adequate once again, above and below the tentorium with the brainstem unremarkable appearing. VENTRICLES: Unremarkable. No hydrocephalus. CALVARIUM: Unremarkable. PARANASAL SINUSES: Unremarkable as visualized. No significant inflammatory changes. MASTOID AIR CELLS: Unremarkable as visualized. No inflammatory changes. OTHER FINDINGS: None. IMPRESSION: 1. 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 2. No acute intracranial findings by standard CT criteria. Follow-up CT or MRI are available if clinically warranted. Concordant preliminary report from [facility], 03/26/2018.
== END 2018-03-27 07:04 | disposition home or self-care (01) ==
LOC: H.ER 21:48
DX: M25.551 Pain in right hip (principal); S09.90XA Unspecified injury of head, initial encounter; G89.29 Other chronic pain; I10 Essential (primary) hypertension; J44.9 Chronic obstructive pulmonary disease, unspecified; M06.9 Rheumatoid arthritis, unspecified; Z86.73 Personal history of transient ischemic attack (TIA), and cerebral infarction without residual deficits

== ENCOUNTER 2018-03-31 20:21 | Emergency (ER) | payer MEDICARE, MEDICAID ==
[2018-03-31 20:22] VITALS: BMI 22.2
[2018-03-31 21:30] LABS: BASO % 0.8 % (0.0-2.0); EOS # 0.1 K/uL (0.0-0.7); EOS % 2.9 % (0.0-4.0); HEMOGLOBIN 13.3 g/dL (12.0-18.0); LYMPH # 1.9 K/uL (1.0-4.3); LYMPH % 42.9 % (20.0-40.0); MEAN CELL VOLUME 100.7 fl (80.0-94.0); MEAN CORPUSCULAR HEMOGLOBIN 33.5 pg (27.0-31.0); MEAN CORPUSCULAR HGB CONC 33.3 g/dL (33.0-37.0); MEAN PLATELET VOLUME 7.7 fl (7.2-11.7); MONO # 0.6 K/uL (0.0-0.8); MONO % 12.9 % (0.0-10.0); NEUT # 1.8 K/uL (1.8-7.0); NEUT % 40.5 % (50.0-75.0); NRBC % 0.1 % (0.0-0.0); RBC 3.95 Mil/uL (4.40-5.90); RED CELL DISTRIBUTION WIDTH 12.4 % (11.5-14.5); WHITE BLOOD COUNT 4.4 K/uL (4.8-10.8)
--- NOTE | 2018-03-31 21:37 | ED PDOC ---
HPI: Head Injury Time Seen by Provider: 03/31/18 20:39 Chief Complaint (Nursing): Trauma Chief Complaint (Provider): Head Injury History Per: Patient History/Exam Limitations: no limitations Injury Occurred (Timing): Just Before Arrival Patient States: Fell Striking Head Additional Complaint(s): 67 year old male well known to the ED for frequent visits and bed seeking behavior presents today reporting he fell striking the back of his head today after feeling lightheaded and dizzy, but denies loss of consciousness. Patient was recently seen in this ED for the same complaint earlier this month sustaining a laceration to the back of his head, and he believes he reopened it when he fell today. Admits to alcohol use this evening. Patient additionally reports generalized weakness, malaise, and a mid headache at this time. PMD: none provided Past Medical History Reviewed: Historical Data, Nursing Documentation, Vital Signs Vital Signs: Last Vital Signs Temp 97.2 F L 03/31/18 20:30 Pulse 93 H 03/31/18 20:30 Resp 16 03/31/18 20:30 BP 160/82 H 03/31/18 20:30 Pulse Ox 100 03/31/18 20:30 - Medical History PMH: Arthritis, Back Problems, Bronchitis, COPD, Fractures (left scapula/left ribs), Gall Bladder Disease, GERD, HTN, Rheumatoid Arthritis, TIA, Chronic Pain Denies: CHF, HIV, Chronic Kidney Disease - Surgical History Surgical History: Cholecystectomy, Hernia Repair - Family History Family History: States: Unknown Family Hx - Immunization History Hx Tetanus Toxoid Vaccination: Yes (more than 5 years ago) Hx Influenza Vaccination: No Hx Pneumococcal Vaccination: No - Home Medications Home Medications: Ambulatory Orders Medication Instructions Recorded Cyclobenzaprine [Cyclobenzaprine 10 mg PO Q8H PRN 7 Days tab 03/08/18 HCl] RX: Ibuprofen [Motrin Tab] 800 mg PO Q6 PRN 5 Days tab 03/08/18 Naproxen [Naprosyn] 500 mg PO BID #30 tablet 03/12/18 RX: Ibuprofen [Motrin Tab] 600 mg PO Q6 PRN 5 Days tab 03/21/18 Cephalexin [Keflex] 500 mg PO BID #14 capsule 03/22/18 Naproxen [Naprosyn] 500 mg PO BID #30 tablet 03/27/18 - Allergies Allergies/Adverse Reactions: Allergies Allergy/AdvReac Type Severity Reaction Status Date / Time No Known Allergies Allergy Verified 03/26/18 21:56 Review of Systems ROS Statement: Except As Marked, All Systems Reviewed And Found Negative Constitutional: Positive for: Weakness (generalized), Malaise Cardiovascular: Positive for: Light Headedness Skin: Positive for: Lesions (on scalp) Neurological: Positive for: Headache (mild), Dizziness. Negative for: Weakness (focal), Other (loss of consciousness) Physical Exam - Reviewed Nursing Documentation Reviewed: Yes Vital Signs Reviewed: Yes - Physical Exam Appears: Positive for: No Acute Distress Head Exam: Negative for: ATRAUMATIC (brown escharotic lesion on right upper posterior scalp with minimal tenderness to palpation, dry, no active bleeding, no hematoma,) Skin: Positive for: Warm, Dry Eye Exam: Positive for: Other (left eye exhibits phthisis bulbi; right eye normal appearance) ENT: Negative for: Pharyngeal Erythema, Tonsillar Exudate Neck: Positive for: Painless ROM, Supple Cardiovascular/Chest: Positive for: Regular Rate, Rhythm. Negative for: Murmur Respiratory: Positive for: Normal Breath Sounds. Negative for: Respiratory Distress Gastrointestinal/Abdominal: Positive for: Soft. Negative for: Tenderness Back: Positive for: Normal Inspection. Negative for: Decreased ROM Extremity: Positive for: Normal ROM. Negative for: Deformity Lymphatic: Negative for: Adenopathy Neurologic/Psych: Positive for: Alert, Oriented (x3). Negative for: Motor/Sensory Deficits - Laboratory Results Result Diagrams: 03/31/18 21:24 03/31/18 21:24 - ECG O2 Sat by Pulse Oximetry: 100 (RA) Pulse Ox Interpretation: Normal Medical Decision Making Medical Decision Making: Time: 2100 Initial Impression: head injury and intoxication Initial Plan: --CT Head without contrast --Alcohol serum --BMP --Magnesium / Phosphorus chemistry --CBC with differential 2215 CT Head FINDINGS: BRAIN Chronic periventricular and subcortical microvascular disease is seen. VENTRICLES: There is generalized parenchymal atrophy noted as demonstrated by symmetrical dilatation of ventricles and sulci. ORBITS: Left phthysis bulbi is noted. SINUSES AND MASTOIDS: The paranasal sinuses and mastoid air cells are clear. BONES: Old bilateral nasal bone fractures are seen. SOFT TISSUES: Unremarkable. MISCELLANEOUS: No acute intracranial pathology. IMPRESSION: 1. There is generalized parenchymal atrophy noted as demonstrated by symmetrical dilatation of ventricles and sulci. 2. Chronic periventricular and subcortical microvascular disease is seen. 3. Left phthysis bulbi is noted. 4. Old bilateral nasal bone fractures are seen. 5. No acute intracranial pathology. Scribe Attestation: Documented by Coco Bañuelos, acting as a scribe for Hilda Cuevas MD. Provider Scribe Attestation: All medical record entries made by the Scribe were at my direction and personally dictated by me. I have reviewed the chart and agree that the record accurately reflects my personal performance of the history, physical exam, medical decision making, and the department course for this patient. I have also personally directed, reviewed, and agree with the discharge instructions and disposition. Disposition - Clinical Impression Clinical Impression: Head injury, Headache, Alcohol intoxication, Scalp wound - Disposition Referrals: [facility] [Outside] (FOLLOW UP BY THE END OF THE WEEK) Disposition: Routine/Home Disposition Time: 23:00 Condition: STABLE Instructions: Wound Care (DC), Closed Head Injury (DC), Alcohol Abuse and Alcoholism (DC) Forms: [facility] (Mongolian)
[2018-03-31 21:42] LABS: BLOOD UREA NITROGEN 17 mg/dl (9-20); CALCIUM 8.5 mg/dL (8.4-10.2); GFR NON-AFRICAN AMERICAN > 60
[2018-04-01 02:44] VITALS: BP 138/85; PULSE 85; RESP 18; TEMP 98.2
--- NOTE | 2018-04-01 10:35 | CT ---
Date of service: 03/31/2018 PROCEDURE: CT HEAD WITHOUT CONTRAST. HISTORY: head injury intox COMPARISON: 03/26/2018. CT head TECHNIQUE: Axial computed tomography images were obtained through the head/brain without intravenous contrast. Supplemental Coronal and Sagittal projections created and reviewed. Radiation dose: Total exam DLP = 733.86 mGy-cm. This CT exam was performed using one or more of the following dose reduction techniques: Automated exposure control, adjustment of the mA and/or kV according to patient size, and/or use of iterative reconstruction technique. FINDINGS: HEMORRHAGE: No intracranial hemorrhage. BRAIN: No mass effect or edema. Cortical and cerebellar atrophy, periventricular small vessel disease. Focal encephalomalacia malone area left mesial temporal region unchanged compared to the prior study. VENTRICLES: Unremarkable. No hydrocephalus. CALVARIUM: Unremarkable. PARANASAL SINUSES: Unremarkable as visualized. No significant inflammatory changes. MASTOID AIR CELLS: Unremarkable as visualized. No inflammatory changes. OTHER FINDINGS: Unilateral, left phthisis bulbi. IMPRESSION: No acute intracranial abnormalities. No significant findings to account for the clinical presentation. No significant interval change compared to the prior examination(s). Concordant results (preliminary interpretation) provided by [employer] [facility]. Procedure Completed: 21:29. Preliminary Report: Dictated and Authenticated: 22:16. Final Interpretation: 10:31. April 01, 2018
[2018-04-01 16:51] VITALS: O2SAT 100
== END 2018-03-31 23:06 | disposition home or self-care (01) ==
LOC: H.ER 20:21
DX: F10.129 Alcohol abuse with intoxication, unspecified (principal); R51 Headache; S09.90XA Unspecified injury of head, initial encounter; W19.XXXA Unspecified fall, initial encounter; Y92.89 Other specified places as the place of occurrence of the external cause
CPT/HCPCS: 70450; 80048; 83735; 84100; 85025; 99284; G0480

== ENCOUNTER 2018-05-31 23:01 | Emergency (ER) | payer MEDICARE, OTHER ==
[2018-05-31 23:01] VITALS: BMI 22.2
[2018-05-31 23:08] VITALS: O2SAT 100
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
[2018-05-31 23:57] VITALS: BP 146/89; PULSE 76; RESP 15; TEMP 98.1
== END 2018-06-01 00:06 | disposition home or self-care (01) ==
LOC: H.ER 23:01
DX: R21 Rash and other nonspecific skin eruption (principal); L29.9 Pruritus, unspecified; F17.210 Nicotine dependence, cigarettes, uncomplicated; G89.29 Other chronic pain; I10 Essential (primary) hypertension; J44.9 Chronic obstructive pulmonary disease, unspecified; M06.9 Rheumatoid arthritis, unspecified; Z86.73 Personal history of transient ischemic attack (TIA), and cerebral infarction without residual deficits

== ENCOUNTER 2018-06-09 16:45 | Inpatient (IN) | payer OTHER ==
[2018-06-09 16:45] VITALS: BMI 22.2
--- NOTE | 2018-06-09 17:06 | ED PDOC ---
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 NOTES NAUSEA/VOMITING INTERMITTENT AND LOOSE STOOLS. ) Past Medical History Reviewed: Historical Data, Nursing Documentation, Vital Signs Vital Signs: Last Vital Signs Temp 98.7 F 06/09/18 16:52 Pulse 93 H 06/09/18 16:52 Resp 20 06/09/18 16:52 BP 164/99 H 06/09/18 16:52 Pulse Ox 100 06/09/18 16:52 - Medical History PMH: Arthritis, Back Problems, Bronchitis, COPD, Fractures (left scapula/left ribs), Gall Bladder Disease, GERD, HTN, Rheumatoid Arthritis, TIA, Chronic Pain Denies: CHF, HIV, Chronic Kidney Disease - Surgical History Surgical History: Cholecystectomy, Hernia Repair - Family History Family History: States: Unknown Family Hx - Immunization History Hx Tetanus Toxoid Vaccination: Yes (more than 5 years ago) Hx Influenza Vaccination: No Hx Pneumococcal Vaccination: No - Home Medications Home Medications: Ambulatory Orders Medication Instructions Recorded Cyclobenzaprine [Cyclobenzaprine 10 mg PO Q8H PRN 7 Days tab 03/08/18 HCl] Ibuprofen [Motrin Tab] 800 mg PO Q6 PRN 5 Days tab 03/08/18 Naproxen [Naprosyn] 500 mg PO BID #30 tablet 03/12/18 Ibuprofen [Motrin Tab] 600 mg PO Q6 PRN 5 Days tab 03/21/18 Cephalexin [Keflex] 500 mg PO BID #14 capsule 03/22/18 Naproxen [Naprosyn] 500 mg PO BID #30 tablet 03/27/18 Calamine/Zinc Oxide [Calamine 1 applic TOP BID PRN #1 bottle 05/31/18 Lotion] DiphenhydrAMINE [Benadryl] 25 mg PO Q6 PRN #30 cap 05/31/18 - Allergies Allergies/Adverse Reactions: Allergies Allergy/AdvReac Type Severity Reaction Status Date / Time No Known Allergies Allergy Verified 06/09/18 16:52 Review of Systems ROS Statement: Except As Marked, All Systems Reviewed And Found Negative Physical Exam - Reviewed Nursing Documentation Reviewed: Yes Vital Signs Reviewed: Yes - Physical Exam Appears: Positive for: Well, Non-toxic, No Acute Distress Head Exam: Positive for: ATRAUMATIC, NORMAL INSPECTION, NORMOCEPHALIC Skin: Positive for: Normal Color, Warm, DRY Eye Exam: Positive for: EOMI, Normal appearance, PERRL ENT: Positive for: Normal ENT Inspection Neck: Positive for: Normal, Painless ROM Cardiovascular/Chest: Positive for: Regular Rate, Rhythm Respiratory: Positive for: CNT, Normal Breath Sounds Gastrointestinal/Abdominal: Positive for: Normal Exam, Soft Back: Positive for: Normal Inspection Extremity: Positive for: Normal ROM Neurologic/Psych: Positive for: Alert, Oriented - ECG O2 Sat by Pulse Oximetry: 100 - Progress ED Course And Treament: influenza a/b NEG zofran 4 mg odt CXR IMPRESSION: New right lower lobe infiltrate likely pneumonia. DUONEB X 1 DOSSE BC X 2/ VBG ZITHROMAX 500 MG IV X1 DOSE/ ROCEPHIN 1 GM IV X [address] MOORE Disposition - Clinical Impression Clinical Impression: Pneumonia - Patient ED Disposition Is Patient to be Admitted: Transfer of Care - Disposition Disposition: Transfer of Care Disposition Time: 20:00 Condition: FAIR Patient Signed Over To: Jackelin Cerda Handoff Comments: PENDING BLOODWORK
--- NOTE | 2018-06-09 18:43 | RAD ---
Date of service: 06/09/2018 HISTORY: COUGH COMPARISON: 03/11/2018 TECHNIQUE: Chest PA and lateral FINDINGS: LUNGS: New right lower lobe infiltrate. PLEURA: No significant pleural effusion identified. No pneumothorax apparent. CARDIOVASCULAR: Atherosclerotic calcifications identified primarily aortic arch. Normal cardiac size. No pulmonary vascular congestion. OSSEOUS STRUCTURES: No significant abnormalities. VISUALIZED UPPER ABDOMEN: Normal. OTHER FINDINGS: None. IMPRESSION: New right lower lobe infiltrate likely pneumonia.
[2018-06-09] MEDS ORDERED: cefTRIAXone (Rocephin) 1 gm Inj IVPB ONE (19:24)
[2018-06-09] MEDS ORDERED: Sodium Chloride 0.9% 1,000 ML IV STA ×2 (19:24→19:26)
[2018-06-09] MEDS ORDERED: Albuterol-Ipratrop 3 mg / 0.5 (3 ml) UD INH STA (19:24)
[2018-06-09] MEDS ORDERED: Azithromycin 500 MG in Sodium Chloride 0.9% 250 ML IVPB STA (19:25)
[2018-06-09] MEDS ORDERED: Azithromycin 500 MG IV IVPB ONE (20:39)
[2018-06-09] MEDS ORDERED: cefTRIAXone (Rocephin) 1 gm Inj ONE (20:39)
[2018-06-09] MEDS ORDERED: Albuterol-Ipratrop 3 mg / 0.5 (3 ml) UD ONE (20:39)
[2018-06-09 21:41] LABS: VENOUS BLOOD GAS BASE EXCESS -0.2 mmol/L (0.0-2.0); VENOUS BLOOD GAS PCO2 37 mmHg (40-60); VENOUS BLOOD GAS PO2 23 mm/Hg (30-55); VENOUS BLOOD PH 7.42 (7.32-7.43)
[2018-06-09 22:04] LABS: ALB/GLOB RATIO 0.9 (1.0-2.1); ALBUMIN 3.5 g/dL (3.5-5.0); ALT/SGPT 75 U/L (21-72); AST/SGOT 60 U/L (17-59); BLOOD UREA NITROGEN 28 mg/dl (9-20); CALCIUM 8.6 mg/dL (8.4-10.2); GFR NON-AFRICAN AMERICAN > 60
[2018-06-09 22:05] LABS: EOS % 0.3 % (0.0-4.0); LYMPH # 0.8 K/uL (1.0-4.3); MEAN PLATELET VOLUME 8.1 fl (7.2-11.7); MONO # 1.1 K/uL (0.0-0.8); NRBC % 0.1 % (0.0-0.0)
[2018-06-09 22:10] LABS: BASO % 0.2 % (0.0-2.0); HEMOGLOBIN 13.1 g/dL (12.0-18.0); MEAN CELL VOLUME 99.2 fl (80.0-94.0); MEAN CORPUSCULAR HGB CONC 34.2 g/dL (33.0-37.0); MONO % 14.1 % (0.0-10.0); NEUT % 75.4 % (50.0-75.0); RBC 3.85 Mil/uL (4.40-5.90); RED CELL DISTRIBUTION WIDTH 12.6 % (11.5-14.5)
--- NOTE | 2018-06-09 22:28 | ED PDOC ---
- Laboratory Results Result Diagrams: 06/09/18 21:42 06/09/18 21:42 Lab Results: pO2 23 mm/Hg (30-55) L 06/09/18 21:32 VBG pH 7.42 (7.32-7.43) 06/09/18 21:32 VBG pCO2 37 mmHg (40-60) L 06/09/18 21:32 VBG HCO3 23.3 mmol/L 06/09/18 21:32 VBG Total CO2 25.1 mmol/L (22-28) 06/09/18 21:32 VBG O2 Sat (Calc) 51.2 % (40-65) 06/09/18 21:32 VBG Base Excess -0.2 mmol/L (0.0-2.0) L 06/09/18 21:32 VBG Potassium 4.0 mmol/L (3.6-5.2) 06/09/18 21:32 Sodium 133.0 mmol/L (132-148) 06/09/18 21:32 Chloride 105.0 mmol/L (98-107) 06/09/18 21:32 Glucose 97 mg/dL (75-110) 06/09/18 21:32 Lactate 1.3 mmol/L (0.7-2.1) 06/09/18 21:32 FiO2 21.0 % 06/09/18 21:32 Total Bilirubin 1.6 mg/dl (0.2-1.3) H 06/09/18 21:42 AST 60 U/L (17-59) H D 06/09/18 21:42 ALT 75 U/L (21-72) H D 06/09/18 21:42 Alkaline Phosphatase 85 U/L (38-126) 06/09/18 21:42 Total Protein 7.4 G/DL (6.3-8.2) 06/09/18 21:42 Albumin 3.5 g/dL (3.5-5.0) 06/09/18 21:42 Globulin 3.9 gm/dL (2.2-3.9) 06/09/18 21:42 Albumin/Globulin Ratio 0.9 (1.0-2.1) L 06/09/18 21:42 - ECG ECG: Positive for: Viewed By Me (reviewed by ED attending) ECG Rhythm: Positive for: Sinus Rhythm O2 Sat by Pulse Oximetry: 100 - Progress ED Course And Treament: Case endorsed to policy writer from Ceferino HANSEN pending labs and admission Patient to be admitted to telemetry as previously discussed Disposition - Clinical Impression Clinical Impression: Pneumonia - POA Present On Arrival: None - Disposition Disposition: Admitted as In-Patient Disposition Time: 22:00 Condition: FAIR
[2018-06-10] MEDS ORDERED: Sodium Chloride 3% for Inhalation 4 ML VIAL.NEB IH PRN (05:12)
[2018-06-10 06:55] LABS: HEMOGLOBIN 11.6 g/dL (12.0-18.0); MEAN CELL VOLUME 100.4 fl (80.0-94.0); MEAN CORPUSCULAR HEMOGLOBIN 33.9 pg (27.0-31.0); MEAN CORPUSCULAR HGB CONC 33.8 g/dL (33.0-37.0); RBC 3.41 Mil/uL (4.40-5.90); RED CELL DISTRIBUTION WIDTH 12.7 % (11.5-14.5); WHITE BLOOD COUNT 8.2 K/uL (4.8-10.8)
[2018-06-10 07:19] LABS: ALB/GLOB RATIO 0.9 (1.0-2.1); ALBUMIN 2.9 g/dL (3.5-5.0); ALT/SGPT 70 U/L (21-72); AST/SGOT 50 U/L (17-59); BLOOD UREA NITROGEN 34 mg/dl (9-20); CALCIUM 8.2 mg/dL (8.4-10.2); GFR NON-AFRICAN AMERICAN > 60; HDL CHOLESTEROL 31 MG/DL (30-70)
[2018-06-10 07:30] LABS: LDL CHOLESTEROL 56 mg/dL (0-129)
[2018-06-10] MEDS ORDERED: Azithromycin 500 MG in Sodium Chloride 0.9% 250 ML IVPB SCH (09:00)
--- NOTE | 2018-06-10 09:01 | CARD ---
APPROVED REPORT Date of service: 06/09/2018 EKG Measurement Heart [id number] HI [id number] <Conclusion> Normal sinus rhythm Normal ECG
--- NOTE | 2018-06-10 12:26 | CP.PCM.HP ---
History of Present Illness - History of Present Illness History of Present Illness: CC: Cough/Chills. 67 y/o M, with PMHx: COPD, HTN, O/A, R/A, TIA,, Chronic pain, Glaucoma, L eye blind. Pt was brought to [facility] on 06/09/18 to be evaluated for persistent cough, non productive, non bloody for 2 consecutive days, increased on DOA with no relief, associated to tactile fever and chills on and off, also body ache. Worsening symptoms: Generalized abdominal pain, described as aching, moderate intensity to nausea, vomiting, loose stool, aggravated with BM. Aggravated factor: Coughing. Pt denied: CP, palpitations, syncope, SOB, urinary symptoms, sick contact, recent travel out of [facility]. CXR: RLL infiltrate likely PNA. EKG: Normal sinus rhythm. Present on Admission - Present on Admission Any Indicators Present on Admission: No Review of Systems - Constitutional Constitutional: Chills, Fever, Weakness - EENT Eyes: Requires Corrective Lenses, Other Visual Disturbances (L corneal opacity) Ears: Other (negative) Nose/Mouth/Throat: Other (negtaive) - Cardiovascular Cardiovascular: Other (negative) - Respiratory Respiratory: Cough - Gastrointestinal Gastrointestinal: Abdominal Pain, Loose Stools, Nausea, Vomiting - Genitourinary Genitourinary: Other (negative) - Musculoskeletal Musculoskeletal: Arthralgias - Integumentary Integumentary: Other (negative) - Neurological Neurological: Abnormal Gait - Psychiatric Psychiatric: Other (negative) - Endocrine Endocrine: Other (negative) - Hematologic/Lymphatic Hematologic: Other (Negative) Past Patient History - Infectious Disease Hx of Infectious Diseases: None - Past Medical History & Family History Past Medical History?: Yes Pertinent Family History: Unknown - Past Social History Smoking Status: Current Some Days Smoker Alcohol: None Drugs: Denies Home Situation {Lives}: Alone - CARDIAC Hx Congestive Heart Failure: No Hx Hypertension: Yes - PULMONARY Hx Respiratory Disorders: Yes Hx Bronchitis: Yes Hx Chronic Obstructive Pulmonary Disease (COPD): Yes - NEUROLOGICAL Hx Neurological Disorder: Yes Hx Transient Ischemic Attacks (TIA): Yes - HEENT Hx HEENT Problems: Yes Hx Blind: Yes (Left eye) Hx Glaucoma: Yes - RENAL Hx Chronic Kidney Disease: No - ENDOCRINE/METABOLIC Hx Endocrine Disorders: No - HEMATOLOGICAL/ONCOLOGICAL Hx Blood Disorders: No - INTEGUMENTARY Hx Dermatological Problems: No - MUSCULOSKELETAL/RHEUMATOLOGICAL Hx Musculoskeletal Disorders: Yes Hx Arthritis: Yes Hx Falls: Yes Hx Fractures: Yes (left scapula/left ribs) Hx Rheumatoid Arthritis: Yes - GASTROINTESTINAL Hx Gastrointestinal Disorders: Yes Hx Gall Bladder Disease: Yes Hx Gastroesophageal Reflux: Yes - GENITOURINARY/GYNECOLOGICAL Hx Genitourinary Disorders: No - PSYCHIATRIC Hx Psychophysiologic Disorder: No Hx Substance Use: No - SURGICAL HISTORY Hx Surgeries: Yes Hx Cholecystectomy: Yes - ANESTHESIA Hx Anesthesia: Yes Hx Anesthesia Reactions: No Hx Malignant Hyperthermia: No Meds Allergies/Adverse Reactions: Allergies Allergy/AdvReac Type Severity Reaction Status Date / Time No Known Allergies Allergy Verified 06/09/18 16:52 Physical Exam - Constitutional Appears: No Acute Distress - Head Exam Head Exam: NORMAL INSPECTION - Eye Exam Additional comments: L eye corneal opacity - ENT Exam ENT Exam: Normal Exam - Neck Exam Neck exam: Positive for: Normal Inspection - Respiratory Exam Additional comments: Crackles at bases - Cardiovascular Exam Cardiovascular Exam: REGULAR RHYTHM - GI/Abdominal Exam GI & Abdominal Exam: Normal Bowel Sounds, Soft - Extremities Exam Extremities exam: Positive for: normal inspection - Back Exam Back exam: NORMAL INSPECTION - Neurological Exam Neurological exam: Abnormal Gait (use a cane as assistive divice for ambuation.), Alert, Oriented x3 - Psychiatric Exam Psychiatric exam: Normal Mood - Skin Skin Exam: Warm Results - Vital Signs Recent Vital Signs: Last Vital Signs Temp 98.4 F 06/10/18 12:07 Pulse 67 06/10/18 12:07 Resp 18 06/10/18 12:07 BP 99/61 L 06/10/18 12:07 Pulse Ox 96 06/10/18 12:07 reviewed Davian - Labs Result Diagrams: 06/10/18 06:30 06/10/18 06:30 Labs: Laboratory Results - last 24 hr 06/09/18 06/09/18 06/09/18 18:02 21:32 21:42 WBC 8.0 D RBC 3.85 L Hgb 13.1 Hct 38.2 MCV 99.2 H MCH 34.0 H MCHC 34.2 RDW 12.6 Plt Count 231 MPV 8.1 Neut % (Auto) 75.4 H Lymph % (Auto) 10.0 L [place] % (Auto) 14.1 H Eos % (Auto) 0.3 Baso % (Auto) 0.2 Neut # (Auto) 6.0 Lymph # (Auto) 0.8 L [place] # (Auto) 1.1 H Eos # (Auto) 0.0 Baso # (Auto) 0.0 pO2 23 L VBG pH 7.42 VBG pCO2 37 L VBG HCO3 23.3 VBG Total CO2 25.1 VBG O2 Sat (Calc) 51.2 VBG Base Excess -0.2 L VBG Potassium 4.0 Sodium 133.0 Chloride 105.0 Glucose 97 Lactate 1.3 FiO2 21.0 Potassium Carbon Dioxide Anion Gap BUN Creatinine Est GFR ( Amer) Est GFR (Non-Af Amer) Random Glucose Calcium Total Bilirubin AST ALT Alkaline Phosphatase Total Protein Albumin Globulin Albumin/Globulin Ratio Triglycerides Cholesterol LDL Cholesterol Direct HDL Cholesterol Thyroxine (T4) TSH 3rd Generation Venous Blood Potassium 4.0 Influenza Typ A,B (EIA) Negative for flu a/b 06/09/18 06/10/18 06/10/18 21:42 06:30 06:30 WBC 8.2 RBC 3.41 L Hgb 11.6 L Hct 34.2 L MCV 100.4 H MCH 33.9 H MCHC 33.8 RDW 12.7 Plt Count 181 MPV Neut % (Auto) Lymph % (Auto) [place] % (Auto) Eos % (Auto) Baso % (Auto) Neut # (Auto) Lymph # (Auto) [place] # (Auto) Eos # (Auto) Baso # (Auto) pO2 VBG pH VBG pCO2 VBG HCO3 VBG Total CO2 VBG O2 Sat (Calc) VBG Base Excess VBG Potassium Sodium 134 136 Chloride 99 102 Glucose Lactate FiO2 Potassium 4.1 4.0 Carbon Dioxide 23 24 Anion Gap 16 14 BUN 28 H 34 H Creatinine 1.0 1.2 Est GFR ( Amer) > 60 > 60 Est GFR (Non-Af Amer) > 60 > 60 Random Glucose 97 101 Calcium 8.6 8.2 L Total Bilirubin 1.6 H 0.9 AST 60 H D 50 ALT 75 H D 70 Alkaline Phosphatase 85 62 Total Protein 7.4 6.2 L Albumin 3.5 2.9 L Globulin 3.9 3.3 Albumin/Globulin Ratio 0.9 L 0.9 L Triglycerides 43 D Cholesterol 101 LDL Cholesterol Direct 56 HDL Cholesterol 31 Thyroxine (T4) 5.86 TSH 3rd Generation 2.02 Venous Blood Potassium Influenza Typ A,B (EIA) reviewed J.P. - EKG Data EKG comments: reviewed J.P. - Imaging and Cardiology Chest x-ray Status: Report reviewed by me (Davian) Assessment & Plan (1) Pneumonia Status: Acute Priority: High (2) COPD (chronic obstructive pulmonary disease) Status: Chronic (3) Unsteady gait Status: Chronic (4) HTN (hypertension) Status: Chronic (5) RA (rheumatoid arthritis) Status: Chronic - Assessment and Plan (Free Text) Plan: F/U Blood C-S, U C-S, Sputum C-S, continue O2 NC, Zithromax, Ceftriaxone, Toradol and rest of Tx. - Date & Time Date: 06/10/18 Time: 12:00
[2018-06-10 14:07] LABS: SQUAMOUS EPITHIAL < 1 /hpf (0-5); URINE BILIRUBIN NEGATIVE (NEGATIVE); URINE BLOOD NEGATIVE (NEGATIVE); URINE CLARITY CLEAR (Clear); URINE COLOR AMBER (YELLOW); URINE GLUCOSE (UA) NEG (NEGATIVE); URINE LEUKOCYTE ESTERASE NEG Leu/uL (Negative); URINE PROTEIN NEGATIVE (NEGATIVE)
[2018-06-11 12:03] LABS: ABG ALLEN TEST YES; ARTERIAL BLOOD GAS HCO3 25.2 mmol/L (21-28); ARTERIAL BLOOD GAS O2 SAT 98.2 % (95-98); ARTERIAL BLOOD GAS PCO2 30 mm/Hg (35-45); ARTERIAL BLOOD GAS PH 7.49 (7.35-7.45); ARTERIAL BLOOD GAS PO2 73 mm/Hg (80-100); ARTERIAL BLOOD GAS TCO2 23.8 mmol/L (22-28)
--- NOTE | 2018-06-11 19:32 | CP.PCM.DIS ---
Provider - Provider Date of Admission: 06/09/18 20:05 Attending physician: Raheel Farley MD Diagnosis - Discharge Diagnosis (1) Pneumonia Status: Acute Priority: High (2) COPD (chronic obstructive pulmonary disease) Status: Chronic (3) Unsteady gait Status: Chronic (4) HTN (hypertension) Status: Chronic (5) RA (rheumatoid arthritis) Status: Chronic Hospital Course - Lab Results Lab Results: Micro Results 06/11/18 09:41 Sputum Gram Stain - Final 06/10/18 13:30 Urine,Clean Catch Urine Culture - Final No Growth (<1,000 CFU/ML) 06/09/18 21:15 Blood-Venous Blood Culture - Preliminary NO GROWTH AFTER 24 HOURS 06/09/18 04:35 Blood-Venous Blood Culture - Preliminary NO GROWTH AFTER 24 HOURS Most Recent Lab Values WBC 8.2 K/uL (4.8-10.8) 06/10/18 06:30 RBC 3.41 Mil/uL (4.40-5.90) L 06/10/18 06:30 Hgb 11.6 g/dL (12.0-18.0) L 06/10/18 06:30 Hct 34.2 % (35.0-51.0) L 06/10/18 06:30 MCV 100.4 fl (80.0-94.0) H 06/10/18 06:30 MCH 33.9 pg (27.0-31.0) H 06/10/18 06:30 MCHC 33.8 g/dL (33.0-37.0) 06/10/18 06:30 RDW 12.7 % (11.5-14.5) 06/10/18 06:30 Plt Count 181 K/uL (130-400) 06/10/18 06:30 MPV 8.1 fl (7.2-11.7) 06/09/18 21:42 Neut % (Auto) 75.4 % (50.0-75.0) H 06/09/18 21:42 Lymph % (Auto) 10.0 % (20.0-40.0) L 06/09/18 21:42 [place] % (Auto) 14.1 % (0.0-10.0) H 06/09/18 21:42 Eos % (Auto) 0.3 % (0.0-4.0) 06/09/18 21:42 Baso % (Auto) 0.2 % (0.0-2.0) 06/09/18 21:42 Neut # (Auto) 6.0 K/uL (1.8-7.0) 06/09/18 21:42 Lymph # (Auto) 0.8 K/uL (1.0-4.3) L 06/09/18 21:42 [place] # (Auto) 1.1 K/uL (0.0-0.8) H 06/09/18 21:42 Eos # (Auto) 0.0 K/uL (0.0-0.7) 06/09/18 21:42 Baso # (Auto) 0.0 K/uL (0.0-0.2) 06/09/18 21:42 pCO2 30 mm/Hg (35-45) L 06/11/18 11:48 pO2 73 mm/Hg (80-100) L 06/11/18 11:48 HCO3 25.2 mmol/L (21-28) 06/11/18 11:48 ABG pH 7.49 (7.35-7.45) H 06/11/18 11:48 ABG Total CO2 23.8 mmol/L (22-28) 06/11/18 11:48 ABG O2 Saturation 98.2 % (95-98) H 06/11/18 11:48 ABG Base Excess 0.4 mmol/L (-2.0-3.0) 06/11/18 11:48 [place] Test Yes 06/11/18 11:48 ABG Potassium 3.9 mmol/L (3.6-5.2) 06/11/18 11:48 VBG pH 7.42 (7.32-7.43) 06/09/18 21:32 VBG pCO2 37 mmHg (40-60) L 06/09/18 21:32 VBG HCO3 23.3 mmol/L 06/09/18 21:32 VBG Total CO2 25.1 mmol/L (22-28) 06/09/18 21:32 VBG O2 Sat (Calc) 51.2 % (40-65) 06/09/18 21:32 VBG Base Excess -0.2 mmol/L (0.0-2.0) L 06/09/18 21:32 VBG Potassium 4.0 mmol/L (3.6-5.2) 06/09/18 21:32 A-a O2 Difference 39.0 mm/Hg 06/11/18 11:48 Sodium 132.0 mmol/L (132-148) 06/11/18 11:48 Chloride 106.0 mmol/L (98-107) 06/11/18 11:48 Glucose 134 mg/dL (75-110) H 06/11/18 11:48 Lactate 1.0 mmol/L (0.7-2.1) 06/11/18 11:48 FiO2 21.0 % 06/11/18 11:48 Sodium 136 mmol/l (132-148) 06/10/18 06:30 Potassium 4.0 MMOL/L (3.6-5.0) 06/10/18 06:30 Chloride 102 mmol/L (98-107) 06/10/18 06:30 Carbon Dioxide 24 mmol/L (22-30) 06/10/18 06:30 Anion Gap 14 (10-20) 06/10/18 06:30 BUN 34 mg/dl (9-20) H 06/10/18 06:30 Creatinine 1.2 mg/dl (0.8-1.5) 06/10/18 06:30 Est GFR ( Amer) > 60 06/10/18 06:30 Est GFR (Non-Af Amer) > 60 06/10/18 06:30 Random Glucose 101 mg/dL (75-110) 06/10/18 06:30 Calcium 8.2 mg/dL (8.4-10.2) L 06/10/18 06:30 Total Bilirubin 0.9 mg/dl (0.2-1.3) 06/10/18 06:30 AST 50 U/L (17-59) 06/10/18 06:30 ALT 70 U/L (21-72) 06/10/18 06:30 Alkaline Phosphatase 62 U/L (38-126) 06/10/18 06:30 Total Protein 6.2 G/DL (6.3-8.2) L 06/10/18 06:30 Albumin 2.9 g/dL (3.5-5.0) L 06/10/18 06:30 Globulin 3.3 gm/dL (2.2-3.9) 06/10/18 06:30 Albumin/Globulin Ratio 0.9 (1.0-2.1) L 06/10/18 06:30 Triglycerides 43 mg/DL (0-149) D 06/10/18 06:30 Cholesterol 101 mg/dL (0-199) 06/10/18 06:30 LDL Cholesterol Direct 56 mg/dL (0-129) 06/10/18 06:30 HDL Cholesterol 31 MG/DL (30-70) 06/10/18 06:30 Thyroxine (T4) 5.86 ug/dl (5.5-11.0) 06/10/18 06:30 TSH 3rd Generation 2.02 mIU/ML (0.46-4.68) 06/10/18 06:30 Arterial Blood Potassium 3.9 mmol/L (3.6-5.2) 06/11/18 11:48 Venous Blood Potassium 4.0 mmol/L (3.6-5.2) 06/09/18 21:32 Urine Color [place] (YELLOW) 06/10/18 13:30 Urine Clarity Clear (Clear) 06/10/18 13:30 Urine pH 5.0 (5.0-8.0) 06/10/18 13:30 Ur Specific [place] 1.029 (1.003-1.030) 06/10/18 13:30 Urine Protein Negative mg/dL (NEGATIVE) 06/10/18 13:30 Urine Glucose (UA) Neg mg/dL (NEGATIVE) 06/10/18 13:30 Urine Ketones Negative mg/dL (NEGATIVE) 06/10/18 13:30 Urine Blood Negative (NEGATIVE) 06/10/18 13:30 Urine Nitrate Negative (NEGATIVE) 06/10/18 13:30 Urine Bilirubin Negative (NEGATIVE) 06/10/18 13:30 Urine Urobilinogen 4.0 mg/dL (0.2-1.0) 06/10/18 13:30 Ur Leukocyte Esterase Neg Red/uL (Negative) 06/10/18 13:30 Urine RBC (Auto) 1 /hpf (0-3) 06/10/18 13:30 Urine Microscopic WBC 1 /hpf (0-5) 06/10/18 13:30 Ur Squamous Epith Cells < 1 /hpf (0-5) 06/10/18 13:30 Influenza Typ A,B (EIA) Negative for flu a/b (NEGATIVE) 06/09/18 18:02 Ur L.pneumophila Ag Negative (NEGATIVE) 06/11/18 09:41 Discharge Exam - Head Exam Head Exam: NORMAL INSPECTION Discharge Plan - Follow Up Plan Condition: FAIR Disposition: HOME/ ROUTINE Instructions: Pneumonia, Adult (DC), Exacerbation of COPD (DC) Referrals: [facility] [Outside] Raheel Farley MD [Staff Provider] -
--- NOTE | 2018-06-11 19:33 | CP.PCM.PN ---
Subjective - Date & Time of Evaluation Date of Evaluation: 06/11/18 Time of Evaluation: 19:00 - Subjective Subjective: F/U PNA Non productive cough, at times with scanty yellowish phlegms, chest congestion Objective - Vital Signs/Intake and Output Vital Signs (last 24 hours): Temp Pulse Resp BP Pulse Ox 99 F 69 18 134/79 97 06/11/18 16:19 06/11/18 16:19 06/11/18 16:19 06/11/18 16:19 06/11/18 16:19 - Medications Medications: Current Medications Azithromycin (Zithromax) 500 mg PO DAILY [facility]; Protocol Last Admin: 06/11/18 09:57 Dose: 500 mg Ceftriaxone Sodium 1 gm/ (Sodium Chloride) 100 mls @ 100 mls/hr IVPB DAILY [facility]; Protocol Last Admin: 06/11/18 08:58 Dose: 100 mls/hr Ketorolac Tromethamine (Toradol) 30 mg IVP Q6 PRN PRN Reason: Pain, moderate (4-7) Last Admin: 06/10/18 00:00 Dose: 30 mg - Labs Labs: 06/10/18 06:30 06/10/18 06:30 - Constitutional Appears: No Acute Distress - Head Exam Head Exam: NORMAL INSPECTION - Eye Exam Additional comments: L eye corneal opacity - ENT Exam ENT Exam: Normal Exam - Neck Exam Neck Exam: Normal Inspection - Respiratory Exam Respiratory Exam: Decreased Breath Sounds (b/l) - Cardiovascular Exam Cardiovascular Exam: REGULAR RHYTHM - GI/Abdominal Exam GI & Abdominal Exam: Soft, Normal Bowel Sounds - Extremities Exam Extremities Exam: Normal Inspection - Back Exam Back Exam: NORMAL INSPECTION - Neurological Exam Neurological Exam: Alert, Oriented x3 Additional comments: Decreased strength LE - Psychiatric Exam Psychiatric exam: Normal Mood - Skin Skin Exam: Warm Assessment and Plan (1) Pneumonia Status: Acute (2) COPD (chronic obstructive pulmonary disease) Status: Chronic (3) Unsteady gait Status: Chronic (4) HTN (hypertension) Status: Chronic (5) RA (rheumatoid arthritis) Status: Chronic - Assessment and Plan (Free Text) Plan: Ceftriaxone, Zithromax, Toradol and rest of Tx.
[2018-06-12] MEDS ORDERED: Promethazine 12.5 mg/10 ml Syrup PO ONE (12:21)
[2018-06-12] MEDS ORDERED: methylPREDNISolone 30 MG in Sodium Chloride 0.9% 50 ML IVPB SCH (14:15)
--- NOTE | 2018-06-12 14:49 | CP.PCM.PN ---
Subjective - Date & Time of Evaluation Date of Evaluation: 06/12/18 - Subjective Subjective: F/U PNA Cough with yellowish phlegms, chest congestion, no SOB, pain in R-L hands. Objective - Vital Signs/Intake and Output Vital Signs (last 24 hours): Temp Pulse Resp BP Pulse Ox 98.4 F 62 18 146/82 95 06/12/18 12:06 06/12/18 12:06 06/12/18 12:06 06/12/18 12:06 06/12/18 12:06 - Medications Medications: Current Medications Albuterol/Ipratropium (Duoneb 3 Mg/0.5 Mg (3 Ml) Ud) 3 ml INH RQID [facility] Azithromycin (Zithromax) 500 mg PO DAILY [facility]; Protocol Last Admin: 06/12/18 08:55 Dose: 500 mg Ceftriaxone Sodium 1 gm/ (Sodium Chloride) 100 mls @ 100 mls/hr IVPB DAILY [facility]; Protocol Last Admin: 06/12/18 08:55 Dose: 100 mls/hr Ketorolac Tromethamine (Toradol) 30 mg IVP Q6 PRN PRN Reason: Pain, moderate (4-7) Last Admin: 06/10/18 00:00 Dose: 30 mg Methylprednisolone (Solu-Medrol) 30 mg IVP Q12 [facility] - Labs Labs: 06/10/18 06:30 06/10/18 06:30 - Constitutional Appears: No Acute Distress - Head Exam Head Exam: NORMAL INSPECTION - Eye Exam Additional comments: L eye corneal opacity - ENT Exam ENT Exam: Normal Exam - Neck Exam Neck Exam: Normal Inspection - Respiratory Exam Respiratory Exam: Decreased Breath Sounds (at bases) - Cardiovascular Exam Cardiovascular Exam: REGULAR RHYTHM - GI/Abdominal Exam GI & Abdominal Exam: Soft, Normal Bowel Sounds - Extremities Exam Extremities Exam: Normal Inspection - Back Exam Back Exam: NORMAL INSPECTION - Neurological Exam Neurological Exam: Alert, Oriented x3 Additional comments: Decreased strength BLE. - Psychiatric Exam Psychiatric exam: Normal Mood - Skin Skin Exam: Warm Assessment and Plan (1) Pneumonia Status: Acute (2) COPD (chronic obstructive pulmonary disease) Status: Chronic (3) Unsteady gait Status: Chronic (4) HTN (hypertension) Status: Chronic (5) RA (rheumatoid arthritis) Status: Chronic - Assessment and Plan (Free Text) Plan: Continue ceftriaxone, Zithromax, Toradol and rest of Tx.
[2018-06-12] MEDS: Albuterol-Ipratrop 3 mg / 0.5 (3 ml) UD INH SCH ×2 (15:24→19:17)
[2018-06-12] MEDS: MethylPREDNISolone 40 mg Vial IVP SCH (20:23)
[2018-06-13] MEDS: Albuterol-Ipratrop 3 mg / 0.5 (3 ml) UD INH SCH ×4 (07:21→19:14)
[2018-06-13] MEDS: MethylPREDNISolone 40 mg Vial IVP SCH (08:26)
--- NOTE | 2018-06-13 15:50 | CP.PCM.PN ---
Subjective - Date & Time of Evaluation Date of Evaluation: 06/13/18 Time of Evaluation: 16:00 - Subjective Subjective: F/U PNA Productive cough with yellowing phlegms, chest congestion improved. Objective - Vital Signs/Intake and Output Vital Signs (last 24 hours): Temp Pulse Resp BP Pulse Ox 97.6 F 92 H 18 130/70 95 06/13/18 12:19 06/13/18 12:19 06/13/18 12:19 06/13/18 12:19 06/13/18 12:19 - Medications Medications: Current Medications Albuterol/Ipratropium (Duoneb 3 Mg/0.5 Mg (3 Ml) Ud) 3 ml INH RQID [facility] Last Admin: 06/13/18 15:14 Dose: 3 ml Azithromycin (Zithromax) 500 mg PO DAILY [facility]; Protocol Last Admin: 06/13/18 08:27 Dose: 500 mg Ceftriaxone Sodium 1 gm/ (Sodium Chloride) 100 mls @ 100 mls/hr IVPB DAILY [facility]; Protocol Last Admin: 06/13/18 13:10 Dose: 100 mls/hr Ketorolac Tromethamine (Toradol) 30 mg IVP Q6 PRN PRN Reason: Pain, moderate (4-7) Last Admin: 06/12/18 20:20 Dose: 30 mg Methylprednisolone (Solu-Medrol) 30 mg IVP Q12 [facility] Last Admin: 06/13/18 08:26 Dose: 30 mg - Labs Labs: 06/10/18 06:30 06/10/18 06:30 - Constitutional Appears: No Acute Distress - Head Exam Head Exam: NORMAL INSPECTION - Eye Exam Additional comments: L eye corneal opacity - ENT Exam ENT Exam: Normal Exam - Neck Exam Neck Exam: Normal Inspection - Respiratory Exam Respiratory Exam: Decreased Breath Sounds (at bases), Rhonchi (scattered) - Cardiovascular Exam Cardiovascular Exam: REGULAR RHYTHM - GI/Abdominal Exam GI & Abdominal Exam: Soft, Normal Bowel Sounds - Extremities Exam Extremities Exam: Normal Inspection - Back Exam Back Exam: NORMAL INSPECTION - Neurological Exam Neurological Exam: Alert, Oriented x3 Additional comments: Decreased strength BLE - Psychiatric Exam Psychiatric exam: Normal Mood - Skin Skin Exam: Warm Assessment and Plan (1) Pneumonia Status: Acute (2) COPD (chronic obstructive pulmonary disease) Status: Chronic (3) Unsteady gait Status: Chronic (4) HTN (hypertension) Status: Chronic (5) RA (rheumatoid arthritis) Status: Chronic - Assessment and Plan (Free Text) Plan: Continue ceftriaxone, Zithromax, Duoneb, Solu-Medrol and rest of Tx.
[2018-06-14 06:18] LABS: BASO # 0.1 K/uL (0.0-0.2); BASO % 0.7 % (0.0-2.0); EOS % 0.1 % (0.0-4.0); HEMOGLOBIN 12.3 g/dL (12.0-18.0); LYMPH # 1.5 K/uL (1.0-4.3); LYMPH % 17.6 % (20.0-40.0); MEAN CELL VOLUME 99.8 fl (80.0-94.0); MEAN CORPUSCULAR HEMOGLOBIN 33.3 pg (27.0-31.0); MEAN CORPUSCULAR HGB CONC 33.3 g/dL (33.0-37.0); MEAN PLATELET VOLUME 8.3 fl (7.2-11.7); MONO % 11.1 % (0.0-10.0); NEUT # 6.1 K/uL (1.8-7.0); NEUT % 70.5 % (50.0-75.0); RBC 3.69 Mil/uL (4.40-5.90); RED CELL DISTRIBUTION WIDTH 12.7 % (11.5-14.5); WHITE BLOOD COUNT 8.7 K/uL (4.8-10.8)
[2018-06-14 06:37] LABS: BLOOD UREA NITROGEN 24 mg/dl (9-20); CALCIUM 8.9 mg/dL (8.4-10.2); GFR NON-AFRICAN AMERICAN > 60
[2018-06-14] MEDS: Albuterol-Ipratrop 3 mg / 0.5 (3 ml) UD INH SCH ×4 (07:49→19:27)
[2018-06-14] MEDS: MethylPREDNISolone 40 mg Vial IVP SCH (09:46)
[2018-06-14] MEDS ORDERED: Promethazine/Cod 6.25mg-10mg/5ml Syr UD PO PRN (14:07)
--- NOTE | 2018-06-14 14:46 | CP.PCM.PN ---
Subjective - Date & Time of Evaluation Date of Evaluation: 06/14/18 Time of Evaluation: 12:10 - Subjective Subjective: F/U PNA Cough with increased yellowish phlegms, at times phlegms stuck in his throat. Objective - Vital Signs/Intake and Output Vital Signs (last 24 hours): Temp Pulse Resp BP Pulse Ox 97.8 F 82 18 129/76 94 L 06/14/18 12:40 06/14/18 12:40 06/14/18 12:40 06/14/18 12:40 06/14/18 12:40 - Medications Medications: Current Medications Albuterol/Ipratropium (Duoneb 3 Mg/0.5 Mg (3 Ml) Ud) 3 ml INH RQID [facility] Last Admin: 06/14/18 11:28 Dose: 3 ml Azithromycin (Zithromax) 500 mg PO DAILY [facility]; Protocol Last Admin: 06/14/18 09:40 Dose: 500 mg Ceftriaxone Sodium 1 gm/ (Sodium Chloride) 100 mls @ 100 mls/hr IVPB DAILY [facility]; Protocol Last Admin: 06/14/18 09:39 Dose: 100 mls/hr Ketorolac Tromethamine (Toradol) 30 mg IVP Q6 PRN PRN Reason: Pain, moderate (4-7) Last Admin: 06/12/18 20:20 Dose: 30 mg Methylprednisolone (Solu-Medrol) 30 mg IVP DAILY [facility] Last Admin: 06/14/18 09:46 Dose: 30 mg Methylprednisolone (Solu-Medrol) 30 mg IVP ONCE ONE Stop: 06/14/18 17:01 Promethazine HCl/Codeine (Phenergan/Codeine Oral Syrup) 5 ml PO Q6 PRN PRN Reason: Cough Last Admin: 06/14/18 14:34 Dose: 5 ml - Labs Labs: 06/14/18 04:30 06/14/18 04:30 - Constitutional Appears: No Acute Distress - Head Exam Head Exam: NORMAL INSPECTION - Eye Exam Additional comments: L eye corneal opacity. - ENT Exam ENT Exam: Normal Exam - Neck Exam Neck Exam: Normal Inspection - Respiratory Exam Respiratory Exam: Decreased Breath Sounds (at bases), Rhonchi (at bases) - Cardiovascular Exam Cardiovascular Exam: REGULAR RHYTHM - GI/Abdominal Exam GI & Abdominal Exam: Soft, Normal Bowel Sounds - Extremities Exam Extremities Exam: Normal Inspection - Back Exam Back Exam: NORMAL INSPECTION - Neurological Exam Neurological Exam: Alert, Oriented x3 Additional comments: Decreased strength BLE - Psychiatric Exam Psychiatric exam: Normal Mood - Skin Skin Exam: Warm Assessment and Plan (1) Pneumonia Status: Acute (2) COPD (chronic obstructive pulmonary disease) Status: Chronic (3) Unsteady gait Status: Chronic (4) HTN (hypertension) Status: Chronic (5) RA (rheumatoid arthritis) Status: Chronic - Assessment and Plan (Free Text) Plan: Continue with Penergan with Co, Duoneb, Solu-Medrol and rest of Tx.
[2018-06-14] MEDS ORDERED: MethylPREDNISolone 40 mg Vial IVP ONE (17:00)
[2018-06-15 07:50] VITALS: RESP 18; O2SAT 97
[2018-06-15] MEDS: Albuterol-Ipratrop 3 mg / 0.5 (3 ml) UD INH SCH ×3 (08:09→15:20)
[2018-06-15 12:34] VITALS: BP 137/82; PULSE 75; TEMP 98.3
--- NOTE | 2018-06-15 12:52 | CP.PCM.PN ---
Objective - Vital Signs/Intake and Output Vital Signs (last 24 hours): Temp Pulse Resp BP Pulse Ox 98.3 F 75 18 137/82 97 06/15/18 12:00 06/15/18 12:00 06/15/18 12:00 06/15/18 12:00 06/15/18 12:00 - Medications Medications: Current Medications Albuterol/Ipratropium (Duoneb 3 Mg/0.5 Mg (3 Ml) Ud) 3 ml INH RQID [facility] Last Admin: 06/15/18 11:31 Dose: 3 ml Methylprednisolone (Solu-Medrol) 30 mg IVP DAILY [facility] Last Admin: 06/14/18 09:46 Dose: 30 mg Promethazine HCl/Codeine (Phenergan/Codeine Oral Syrup) 5 ml PO Q6 PRN PRN Reason: Cough Last Admin: 06/14/18 14:34 Dose: 5 ml - Labs Labs: 06/14/18 04:30 06/14/18 04:30 Assessment and Plan (1) Pneumonia Status: Acute (2) COPD (chronic obstructive pulmonary disease) Status: Chronic (3) Unsteady gait Status: Chronic (4) HTN (hypertension) Status: Chronic (5) RA (rheumatoid arthritis) Status: Chronic
--- NOTE | 2018-06-15 12:54 | CP.PCM.DIS ---
Provider - Provider Date of Admission: 06/09/18 20:05 Attending physician: Raheel Farley MD Time Spent in preparation of Discharge (in minutes): 35 Diagnosis - Discharge Diagnosis (1) Pneumonia Status: Acute Priority: High (2) COPD (chronic obstructive pulmonary disease) Status: Chronic (3) Unsteady gait Status: Chronic (4) HTN (hypertension) Status: Chronic (5) RA (rheumatoid arthritis) Status: Chronic Hospital Course - Lab Results Lab Results: Micro Results 06/09/18 21:15 Blood-Venous Blood Culture - Final NO GROWTH AFTER 5 DAYS 06/09/18 21:15 Blood-Venous Gram Stain - Final TEST NOT PERFORMED 06/09/18 04:35 Blood-Venous Blood Culture - Final NO GROWTH AFTER 5 DAYS 06/09/18 04:35 Blood-Venous Gram Stain - Final TEST NOT PERFORMED 06/11/18 09:41 Sputum Gram Stain - Final 06/11/18 09:41 Sputum Sputum Culture - Final NORMAL ORAL JAZZY 06/10/18 13:30 Urine,Clean Catch Urine Culture - Final No Growth (<1,000 CFU/ML) Most Recent Lab Values WBC 8.7 K/uL (4.8-10.8) 06/14/18 04:30 RBC 3.69 Mil/uL (4.40-5.90) L 06/14/18 04:30 Hgb 12.3 g/dL (12.0-18.0) 06/14/18 04:30 Hct 36.8 % (35.0-51.0) 06/14/18 04:30 MCV 99.8 fl (80.0-94.0) H 06/14/18 04:30 MCH 33.3 pg (27.0-31.0) H 06/14/18 04:30 MCHC 33.3 g/dL (33.0-37.0) 06/14/18 04:30 RDW 12.7 % (11.5-14.5) 06/14/18 04:30 Plt Count 282 K/uL (130-400) D 06/14/18 04:30 MPV 8.3 fl (7.2-11.7) 06/14/18 04:30 Neut % (Auto) 70.5 % (50.0-75.0) 06/14/18 04:30 Lymph % (Auto) 17.6 % (20.0-40.0) L 06/14/18 04:30 Dubois % (Auto) 11.1 % (0.0-10.0) H 06/14/18 04:30 Eos % (Auto) 0.1 % (0.0-4.0) 06/14/18 04:30 Baso % (Auto) 0.7 % (0.0-2.0) 06/14/18 04:30 Neut # (Auto) 6.1 K/uL (1.8-7.0) 06/14/18 04:30 Lymph # (Auto) 1.5 K/uL (1.0-4.3) 06/14/18 04:30 Dubois # (Auto) 1.0 K/uL (0.0-0.8) H 06/14/18 04:30 Eos # (Auto) 0.0 K/uL (0.0-0.7) 06/14/18 04:30 Baso # (Auto) 0.1 K/uL (0.0-0.2) 06/14/18 04:30 pCO2 30 mm/Hg (35-45) L 06/11/18 11:48 pO2 73 mm/Hg (80-100) L 06/11/18 11:48 HCO3 25.2 mmol/L (21-28) 06/11/18 11:48 ABG pH 7.49 (7.35-7.45) H 06/11/18 11:48 ABG Total CO2 23.8 mmol/L (22-28) 06/11/18 11:48 ABG O2 Saturation 98.2 % (95-98) H 06/11/18 11:48 ABG Base Excess 0.4 mmol/L (-2.0-3.0) 06/11/18 11:48 Christiano Test Yes 06/11/18 11:48 ABG Potassium 3.9 mmol/L (3.6-5.2) 06/11/18 11:48 VBG pH 7.42 (7.32-7.43) 06/09/18 21:32 VBG pCO2 37 mmHg (40-60) L 06/09/18 21:32 VBG HCO3 23.3 mmol/L 06/09/18 21:32 VBG Total CO2 25.1 mmol/L (22-28) 06/09/18 21:32 VBG O2 Sat (Calc) 51.2 % (40-65) 06/09/18 21:32 VBG Base Excess -0.2 mmol/L (0.0-2.0) L 06/09/18 21:32 VBG Potassium 4.0 mmol/L (3.6-5.2) 06/09/18 21:32 A-a O2 Difference 39.0 mm/Hg 06/11/18 11:48 Sodium 132.0 mmol/L (132-148) 06/11/18 11:48 Chloride 106.0 mmol/L (98-107) 06/11/18 11:48 Glucose 134 mg/dL (75-110) H 06/11/18 11:48 Lactate 1.0 mmol/L (0.7-2.1) 06/11/18 11:48 FiO2 21.0 % 06/11/18 11:48 Sodium 136 mmol/l (132-148) 06/14/18 04:30 Potassium 4.2 MMOL/L (3.6-5.0) 06/14/18 04:30 Chloride 102 mmol/L (98-107) 06/14/18 04:30 Carbon Dioxide 23 mmol/L (22-30) 06/14/18 04:30 Anion Gap 15 (10-20) 06/14/18 04:30 BUN 24 mg/dl (9-20) H 06/14/18 04:30 Creatinine 0.8 mg/dl (0.8-1.5) 06/14/18 04:30 Est GFR ( Amer) > 60 06/14/18 04:30 Est GFR (Non-Af Amer) > 60 06/14/18 04:30 Random Glucose 101 mg/dL (75-110) 06/14/18 04:30 Calcium 8.9 mg/dL (8.4-10.2) 06/14/18 04:30 Total Bilirubin 0.9 mg/dl (0.2-1.3) 06/10/18 06:30 AST 50 U/L (17-59) 06/10/18 06:30 ALT 70 U/L (21-72) 06/10/18 06:30 Alkaline Phosphatase 62 U/L (38-126) 06/10/18 06:30 Total Protein 6.2 G/DL (6.3-8.2) L 06/10/18 06:30 Albumin 2.9 g/dL (3.5-5.0) L 06/10/18 06:30 Globulin 3.3 gm/dL (2.2-3.9) 06/10/18 06:30 Albumin/Globulin Ratio 0.9 (1.0-2.1) L 06/10/18 06:30 Triglycerides 43 mg/DL (0-149) D 06/10/18 06:30 Cholesterol 101 mg/dL (0-199) 06/10/18 06:30 LDL Cholesterol Direct 56 mg/dL (0-129) 06/10/18 06:30 HDL Cholesterol 31 MG/DL (30-70) 06/10/18 06:30 Thyroxine (T4) 5.86 ug/dl (5.5-11.0) 06/10/18 06:30 TSH 3rd Generation 2.02 mIU/ML (0.46-4.68) 06/10/18 06:30 Arterial Blood Potassium 3.9 mmol/L (3.6-5.2) 06/11/18 11:48 Venous Blood Potassium 4.0 mmol/L (3.6-5.2) 06/09/18 21:32 Urine Color Carina (YELLOW) 06/10/18 13:30 Urine Clarity Clear (Clear) 06/10/18 13:30 Urine pH 5.0 (5.0-8.0) 06/10/18 13:30 Ur Specific Commerce 1.029 (1.003-1.030) 06/10/18 13:30 Urine Protein Negative mg/dL (NEGATIVE) 06/10/18 13:30 Urine Glucose (UA) Neg mg/dL (NEGATIVE) 06/10/18 13:30 Urine Ketones Negative mg/dL (NEGATIVE) 06/10/18 13:30 Urine Blood Negative (NEGATIVE) 06/10/18 13:30 Urine Nitrate Negative (NEGATIVE) 06/10/18 13:30 Urine Bilirubin Negative (NEGATIVE) 06/10/18 13:30 Urine Urobilinogen 4.0 mg/dL (0.2-1.0) 06/10/18 13:30 Ur Leukocyte Esterase Neg Red/uL (Negative) 06/10/18 13:30 Urine RBC (Auto) 1 /hpf (0-3) 06/10/18 13:30 Urine Microscopic WBC 1 /hpf (0-5) 06/10/18 13:30 Ur Squamous Epith Cells < 1 /hpf (0-5) 06/10/18 13:30 Cold Agglutinins Negative (NEGATIVE) 06/12/18 11:16 Influenza Typ A,B (EIA) Negative for flu a/b (NEGATIVE) 06/09/18 18:02 Ur L.pneumophila Ag Negative (NEGATIVE) 06/11/18 09:41 Mycoplasma pneumon IgM Negative (NEGATIVE) 06/11/18 09:46 - Date & Time of H&P Date of H&P: 06/10/18 Time of H&P: 12:00 Discharge Exam - Head Exam Head Exam: NORMAL INSPECTION - Eye Exam Additional comments: L eye corneal opacity - ENT Exam ENT Exam: Normal Exam - Neck Exam Neck exam: Normal Inspection - Respiratory Exam Respiratory Exam: Decreased Breath Sounds (at bases), Rhonchi (at bases) - Cardiovascular Exam Cardiovascular Exam: REGULAR RHYTHM - GI/Abdominal Exam GI & Abdominal Exam: Normal Bowel Sounds, Soft - Extremities Exam Extremities exam: normal inspection - Back Exam Back exam: NORMAL INSPECTION - Neurological Exam Neurological exam: Alert, Oriented x3 Additional comments: decreased strength BLE - Psychiatric Exam Psychiatric exam: Normal Mood - Skin Skin Exam: Warm Discharge Plan - Discharge Medications Prescriptions: Prednisone 10 mg PO DAILY #10 tab.ds.pk Azithromycin [Zithromax] 500 mg PO DAILY #5 tab - Follow Up Plan Condition: FAIR Disposition: HOME/ ROUTINE Patient education suggested?: Yes Instructions: Pneumonia, Adult (DC), Exacerbation of COPD (DC) Additional Instructions: follow up appt with on 06/24/18 3:30pm Referrals: Raheel Farley MD [Staff Provider] -
[2018-06-15] MEDS: MethylPREDNISolone 40 mg Vial IVP SCH (13:01)
--- NOTE | 2018-06-15 14:04 | RAD ---
Date of service: 06/15/2018 HISTORY: pneumonia COMPARISON: 06/09/2018. TECHNIQUE: Chest PA and lateral FINDINGS: LUNGS: Resolution previously identified right lower lobe infiltrate. PLEURA: No significant pleural effusion identified. No pneumothorax apparent. CARDIOVASCULAR: No aortic atherosclerotic calcification present. Normal cardiac size. No pulmonary vascular congestion. OSSEOUS STRUCTURES: No significant abnormalities. VISUALIZED UPPER ABDOMEN: Normal. OTHER FINDINGS: None. IMPRESSION: No active pulmonary disease. Resolved right lower lobe infiltrate/pneumonia.
== END 2018-06-15 15:00 | disposition home or self-care (01) | DRG 194 ==
LOC: H.ER 16:45 → H.ERHOLD 20:05 → H.TEL 06-10 00:40
PROVIDERS: ADMIT Internal Medicine Pulmonary Disease; ATTEND Internal Medicine Pulmonary Disease
DX: J18.1 Lobar pneumonia, unspecified organism (principal); J44.0 Chronic obstructive pulmonary disease with (acute) lower respiratory infection; K21.9 Gastro-esophageal reflux disease without esophagitis; M06.9 Rheumatoid arthritis, unspecified; I10 Essential (primary) hypertension; Z86.73 Personal history of transient ischemic attack (TIA), and cerebral infarction without residual deficits; G89.29 Other chronic pain; H40.9 Unspecified glaucoma; H54.62 Unqualified visual loss, left eye, normal vision right eye; R26.81 Unsteadiness on feet; F17.200 Nicotine dependence, unspecified, uncomplicated

== ENCOUNTER 2018-07-29 01:19 | Emergency (ER) | payer OTHER ==
[2018-07-29 01:19] VITALS: BMI 22.2
[2018-07-29 02:11] VITALS: BP 166/94; PULSE 78; RESP 16; TEMP 98; O2SAT 98
--- NOTE | 2018-07-29 03:07 | ED PDOC ---
HPI: Back Time Seen by Provider: 07/29/18 02:18 Chief Complaint (Nursing): Back Pain Chief Complaint (Provider): fall, back pain History Per: Patient History/Exam Limitations: no limitations Onset/Duration Of Symptoms: Hrs (3) Current Symptoms Are (Timing): Still Present Exacerbating Factor(s): Turning, Movement Additional Complaint(s): 68 y/o male presents to ED for evaluation of low back pain x 3 hours. Patient states he lost his footing and fell; now reports pain to lower back and left shoulder Patient denies hitting head, LOC, dizziness, headache, numbness/weakness of extremities, bowel/bladder incontinence. No medications taken for relief thus far Past Medical History Reviewed: Historical Data, Nursing Documentation, Vital Signs Vital Signs: Last Vital Signs Temp 98.0 F 07/29/18 02:07 Pulse 78 07/29/18 02:07 Resp 16 07/29/18 02:07 BP 166/94 H 07/29/18 02:07 Pulse Ox 98 07/29/18 02:07 - Medical History PMH: Arthritis, Back Problems, Bronchitis, COPD, Fractures (left scapula/left ribs), Gall Bladder Disease, GERD, HTN, Rheumatoid Arthritis, TIA, Chronic Pain Denies: CHF, HIV, Chronic Kidney Disease - Surgical History Surgical History: Cholecystectomy, Hernia Repair - Family History Family History: States: Unknown Family Hx - Immunization History Hx Tetanus Toxoid Vaccination: Yes (more than 5 years ago) Hx Influenza Vaccination: No Hx Pneumococcal Vaccination: No - Home Medications Home Medications: Ambulatory Orders Medication Instructions Recorded Azithromycin [Zithromax] 500 mg PO DAILY #5 tab 06/12/18 Prednisone 10 mg PO DAILY #10 tab.ds.pk 06/15/18 Naproxen [Naprosyn] 500 mg PO Q12 PRN #14 tablet 07/29/18 - Allergies Allergies/Adverse Reactions: Allergies Allergy/AdvReac Type Severity Reaction Status Date / Time No Known Allergies Allergy Verified 06/09/18 16:52 Review of Systems ROS Statement: Except As Marked, All Systems Reviewed And Found Negative Musculoskeletal: Positive for: Shoulder Pain (left), Back Pain (low back pain) Physical Exam - Reviewed Nursing Documentation Reviewed: Yes Vital Signs Reviewed: Yes - Physical Exam Appears: Positive for: Well, Non-toxic, No Acute Distress Head Exam: Positive for: ATRAUMATIC, NORMAL INSPECTION, NORMOCEPHALIC Skin: Positive for: Normal Color Eye Exam: Positive for: Normal appearance ENT: Positive for: Normal ENT Inspection Cardiovascular/Chest: Positive for: Regular Rate, Rhythm Respiratory: Positive for: Normal Breath Sounds Pulses-Radial (L): 2+ Pulses-Radial (R): 2+ Gastrointestinal/Abdominal: Positive for: Normal Exam Back: Positive for: Vertebral Tenderness (lower lspine; no bony deformity, edema noted). Negative for: L CVA Tenderness, R CVA Tenderness, Decreased ROM, Muscle Spasm Extremity: Positive for: Normal ROM (pain left shoulder with abduction/flexion), Capillary Refill (<3 sec b/l UE). Negative for: Deformity, Swelling Neurological/Psych: Positive for: Awake, Alert, Oriented (x3) - ECG O2 Sat by Pulse Oximetry: 98 - Other Rad xray left shoulder X-Ray: Viewed By Me X-Ray Interpretation: no acute findings lspine xray X-Ray: Viewed By Wa X-Ray Interpretation: T12-L1 compression fractures (old, seen on CT [facility] in 05/2017) - Progress ED Course And Treament: -Toradol IM -lspine xray -left shoulder xray Patient educated on findings, discharged with rx Naproxen Patient refusing arm sling; states he is moving arm without pain/difficulty Advised RICE Follow up PMD/Ortho Return precautions given Disposition - Clinical Impression Clinical Impression: Low back pain, Injury of left shoulder - Patient ED Disposition Is Patient to be Admitted: No Counseled Patient/Family Regarding: Studies Performed, Diagnosis, Need For Followup, Rx Given - Disposition Referrals: [facility] [Outside] Landry Dockery MD [Staff Provider] - Disposition: Routine/Home Disposition Time: 04:00 Condition: IMPROVED Prescriptions: Naproxen [Naprosyn] 500 mg PO Q12 PRN #14 tablet PRN Reason: Pain, Moderate (4-7) Instructions: Shoulder Sprain, Low Back Pain in Adults
--- NOTE | 2018-07-29 14:58 | RAD ---
Date of service: 07/29/2018 PROCEDURE: Radiographs of the left shoulder HISTORY: fall TECHNIQUE:: 3 views were obtained. COMPARISON: No prior. FINDINGS: BONES: Bone alignment is normal. There is no acute displaced fracture or bone destruction. There is diffuse bone demineralization. JOINTS: There is mild degenerative osteoarthrosis in the glenohumeral joint. There is moderate degenerative osteoarthrosis in the acromioclavicular joint with hyperostosis and overlying soft tissue swelling. SOFT TISSUES: Normal. OTHER FINDINGS: None. IMPRESSION: No acute displaced fracture or dislocation.
--- NOTE | 2018-07-29 15:27 | RAD ---
Date of service: 07/29/2018 PROCEDURE: Radiographs of the Lumbar Spine. HISTORY: fall COMPARISON: CT lumbar spine 05/31/2017 TECHNIQUE: Three views obtained. FINDINGS: BONES: Generalized osteopenia Exam is particularly limited regarding evaluating the sacrum due to overlying bowel gas in the frontal projection Interval can cavity perceived to the superior L3 vertebral body previously inferior L3 vertebral body increased convexity was noted-compression deformity here and/or prominent Schmorl's node indentation here compatible with this. The inferior probable prominent Schmorl's node like indentation is noted on the current series 8144, image 3 and is unchanged. The superior decreased height of L3 on the frontal current series 8144 is not seen as such on the prior lumbar spine CT study compatible with interval pathology here. The T12 and L1 vertebral body wedging and compression deformities are similar. Some posterior retropulsion of the L1 vertebral body margin on the 2018 study is similar to that depicted on this exam. The slight anterior subluxation of L4 relative to L5 is similar on the current study with the prior 2018 study. This is attributed to degenerative ligamentous laxity. DISC SPACES: Severely narrowed L5-S1-with vacuum disc phenomena here. Also narrowed moderate to severe at L4-5-no change here. OTHER FINDINGS: Extensive descending abdominal aortic and branches arterial vascular calcifications. Probable bilateral renal calculi which were are also noted on the prior study. IMPRESSION: Interval superior L3 vertebral body compression fracture deformity per the frontal view of the loss of height here is approximately 50 percent. No retropulsed ossific fragments into the spinal canal at this level seen. The other multiple wedging and compression deformities at L1 and T12 and along the inferior aspect of L3 overseas likely a prominent Schmorl's node indentation here inferior endplate of L3) are stable in appearance with the 2018 study. Advanced degenerative disc disease. Facet hypertrophic arthrosis with degenerative ligamentous laxity likely contributing to the mild malalignment subluxation at L4-5. Comments: Study marked for PA review .
== END 2018-07-29 05:15 | disposition home or self-care (01) ==
LOC: H.ER 01:19
DX: M54.5 Low back pain (principal); S49.92XA Unspecified injury of left shoulder and upper arm, initial encounter; W01.0XXA Fall on same level from slipping, tripping and stumbling without subsequent striking against object, initial encounter; Y92.89 Other specified places as the place of occurrence of the external cause; M48.56XA Collapsed vertebra, not elsewhere classified, lumbar region, initial encounter for fracture; Z86.73 Personal history of transient ischemic attack (TIA), and cerebral infarction without residual deficits; M06.9 Rheumatoid arthritis, unspecified; G89.29 Other chronic pain
CPT/HCPCS: 72100; 73030; 96372; 99283; J1885

== ENCOUNTER 2018-08-23 21:03 | Emergency (ER) | payer OTHER ==
[2018-08-23 21:03] VITALS: BMI 22.2
[2018-08-23 21:14] VITALS: TEMP 97.8
[2018-08-23 21:52] LABS: BASO # 0.1 K/uL (0.0-0.2); BASO % 1.2 % (0.0-2.0); EOS # 0.2 K/uL (0.0-0.7); EOS % 3.5 % (0.0-4.0); HEMOGLOBIN 12.6 g/dL (12.0-18.0); LYMPH # 1.9 K/uL (1.0-4.3); LYMPH % 42.3 % (20.0-40.0); MEAN CELL VOLUME 100.5 fl (80.0-94.0); MEAN CORPUSCULAR HEMOGLOBIN 33.1 pg (27.0-31.0); MEAN CORPUSCULAR HGB CONC 32.9 g/dL (33.0-37.0); MONO # 0.8 K/uL (0.0-0.8); MONO % 17.4 % (0.0-10.0); NEUT # 1.6 K/uL (1.8-7.0); NEUT % 35.6 % (50.0-75.0); NRBC % 0.2 % (0.0-0.0); RBC 3.82 Mil/uL (4.40-5.90); RED CELL DISTRIBUTION WIDTH 13.3 % (11.5-14.5); WHITE BLOOD COUNT 4.6 K/uL (4.8-10.8)
[2018-08-23 22:02] LABS: ALBUMIN 3.6 g/dL (3.5-5.0); ALT/SGPT 105 U/L (21-72); AST/SGOT 126 U/L (17-59); BLOOD UREA NITROGEN 34 mg/dl (9-20); CALCIUM 8.8 mg/dL (8.4-10.2); GFR NON-AFRICAN AMERICAN > 60
[2018-08-23 22:03] LABS: PROTHROMBIN TIME 11.5 Seconds (9.8-13.1)
--- NOTE | 2018-08-23 22:05 | ED PDOC ---
HPI: Chest Pain Time Seen by Provider: 08/23/18 21:20 Chief Complaint (Nursing): Chest Pain Chief Complaint (Provider): Chest pain History/Exam Limitations: no limitations Onset/Duration Of Symptoms: Hrs (1x) Current Symptoms Are (Timing): Still Present Severity: Moderate Additional Complaint(s): 68 year old male with multiple visits to the ED with a past medical history of chronic bronchitis presents to the ED for an evaluation of chest pain ongoing for 1x hour. Patient is not taking any home medications, nor does he follow up with a PMD. Patient denies having nausea, vomiting, and diaphoresis. Patient does reports having shortness of breath. PMD: None Past Medical History Reviewed: Historical Data, Nursing Documentation, Vital Signs Vital Signs: Last Vital Signs Temp 97.8 F 08/23/18 21:13 Pulse 70 08/23/18 21:13 Resp 16 08/23/18 21:13 BP 142/90 08/23/18 21:13 Pulse Ox 100 08/23/18 21:13 SEBAS Report Viewed: Yes Primary Care Provider: FAMILY PROVIDER,NO - Medical History PMH: Arthritis, Back Problems, Bronchitis, COPD, Fractures (left scapula/left ribs), Gall Bladder Disease, GERD, HTN, Rheumatoid Arthritis, TIA, Chronic Pain Denies: CHF, HIV, Chronic Kidney Disease - Surgical History Surgical History: Cholecystectomy, Hernia Repair - Family History Family History: States: No Known Family Hx - Social History Current smoker - smoking cessation education provided: No Alcohol: None Drugs: Denies - Immunization History Hx Tetanus Toxoid Vaccination: Yes (more than 5 years ago) Hx Influenza Vaccination: No Hx Pneumococcal Vaccination: No - Home Medications Home Medications: Ambulatory Orders Medication Instructions Recorded Azithromycin [Zithromax] 500 mg PO DAILY #5 tab 06/12/18 Prednisone 10 mg PO DAILY #10 tab.ds.pk 06/15/18 Naproxen [Naprosyn] 500 mg PO Q12 PRN #14 tablet 07/29/18 Naproxen [Naprosyn] 500 mg PO Q12 #14 tab 08/24/18 - Allergies Allergies/Adverse Reactions: Allergies Allergy/AdvReac Type Severity Reaction Status Date / Time No Known Allergies Allergy Verified 08/23/18 21:17 Review of Systems ROS Statement: Except As Marked, All Systems Reviewed And Found Negative Constitutional: Negative for: Other (diaphoresis) Eyes: Positive for: Other (left eye blindness) Cardiovascular: Positive for: Chest Pain (1x hour) Respiratory: Positive for: Shortness of Breath Gastrointestinal: Negative for: Nausea, Vomiting Physical Exam - Reviewed Nursing Documentation Reviewed: Yes Vital Signs Reviewed: Yes - Physical Exam Appears: Positive for: Well, Non-toxic, No Acute Distress Head Exam: Positive for: ATRAUMATIC, NORMOCEPHALIC Skin: Positive for: Normal Color, Warm, Dry Eye Exam: Positive for: Other (left eye atrophic) Neck: Positive for: Normal, Painless ROM, Supple Cardiovascular/Chest: Positive for: Regular Rate, Rhythm Respiratory: Positive for: Normal Breath Sounds Neurological/Psych: Positive for: Awake, Alert, Oriented (3x) - Laboratory Results Result Diagrams: 08/23/18 21:45 08/23/18 21:45 - ECG O2 Sat by Pulse Oximetry: 100 (RA) Pulse Ox Interpretation: Normal Medical Decision Making Medical Decision Makin:20 Initial impression: 68 year old male with chest pain Initial plan: * XRay chest 2 views * EKG * BNP * CMP * troponin I * CBC with differential * PT/ PTT * reevaluation 06:10 Labs reviewed and reveal no clinically significant abnormalities. Ordered six hour Troponin and EKG which both remain within normal limits. Patient is stable for discharge. Diagnosis is atypical chest pain. ------- ScribeAttestation: Documented bySammie Nielson, acting as a scribe for Keagan Pagan MD. Provider ScribeAttestation: All medical record entries made by the Scribe were at my direction and personally dictated by me. I have reviewed the chart and agree that the record accurately reflects my personal performance of the history, physical exam, medical decision making, and the department course for this patient. I have also personally directed, reviewed, and agree with the discharge instructions and disposition. Disposition - Clinical Impression Clinical Impression: Atypical chest pain - Patient ED Disposition Is Patient to be Admitted: No - Disposition Referrals: [facility] [Outside] Disposition Time: 06:10 Condition: STABLE Prescriptions: Naproxen [Naprosyn] 500 mg PO Q12 #14 tab Instructions: Chest Pain That Is Not Caused by the Heart (DC) Forms: [employer] ([place])
[2018-08-23 22:06] LABS: PARTIAL THROMBOPLASTIN TIME 32.2 Seconds (25.6-37.1)
[2018-08-24 06:23] VITALS: BP 140/83; PULSE 63; RESP 18; O2SAT 100
--- NOTE | 2018-08-24 09:13 | CARD ---
APPROVED REPORT Date of service: 08/23/2018 EKG Measurement Heart [id number] <Conclusion> Normal sinus rhythm Normal ECG
--- NOTE | 2018-08-24 09:40 | RAD ---
Date of service: 08/23/2018 HISTORY: chest pain COMPARISON: No prior. TECHNIQUE: 1 view obtained. FINDINGS: LUNGS: No active pulmonary disease. PLEURA: No significant pleural effusion identified, no pneumothorax apparent. CARDIOVASCULAR: No aortic atherosclerotic calcification present. Normal cardiac size. No pulmonary vascular congestion. OSSEOUS STRUCTURES: A few old healed bilateral rib fractures are are reiterated laterally. Prior right shoulder replacement hardware reiterated. VISUALIZED UPPER ABDOMEN: Normal. OTHER FINDINGS: None. IMPRESSION: No interval acute cardiopulmonary disease appreciated.
== END 2018-08-24 04:15 | disposition home or self-care (01) ==
LOC: H.ER 21:03
DX: R07.89 Other chest pain (principal); K21.9 Gastro-esophageal reflux disease without esophagitis
CPT/HCPCS: 71045; 80053; 83880; 84484; 85025; 85610; 85730; 93005; 96374; 99285; J1885

== ENCOUNTER 2018-09-08 02:51 | Emergency (ER) | payer OTHER ==
[2018-09-08 02:51] VITALS: BMI 22.2
[2018-09-08 03:09] VITALS: BP 138/78; PULSE 87; RESP 16; TEMP 98.4; O2SAT 97
[2018-09-08] MEDS ORDERED: Albuterol 0.083% Inhal Sol (2.5 mg/3 mL) UD INH ONE (03:19)
--- NOTE | 2018-09-08 03:28 | ED PDOC ---
HPI: CCC, URI, Sore Throat Time Seen by Provider: 09/08/18 02:53 Chief Complaint (Nursing): Cough, Cold, Congestion Chief Complaint (Provider): Cough, Cold, Congestion History Per: Patient History/Exam Limitations: no limitations Current Symptoms Are (Timing): Still Present Additional Complaint(s): 68 y/o male with a PMHx of GERD, COPD, Vertigo, alcohol abuse, HTN and rheumatoid arthritis with frequent visits to the ER presents to the ED for evaluation of a productive cough with yellow sputum associated with nasal congestion, rhinorrhea and mid-sternal chest pain. PMD: Dwayne Garrett Past Medical History Reviewed: Historical Data, Nursing Documentation, Vital Signs Vital Signs: Last Vital Signs Temp 98.4 F 09/08/18 03:02 Pulse 87 09/08/18 03:02 Resp 16 09/08/18 03:02 BP 138/78 09/08/18 03:02 Pulse Ox 97 09/08/18 03:02 Primary Care Provider: FAMILY PROVIDER,NO - Medical History PMH: Arthritis, Back Problems, Bronchitis, COPD, Fractures (left scapula/left ribs), Gall Bladder Disease, GERD, HTN, Rheumatoid Arthritis, TIA, Chronic Pain Denies: CHF, HIV, Chronic Kidney Disease - Surgical History Surgical History: Cholecystectomy, Hernia Repair - Family History Family History: States: Unknown Family Hx - Social History Current smoker - smoking cessation education provided: No Alcohol: None Drugs: Denies - Immunization History Hx Tetanus Toxoid Vaccination: Yes (more than 5 years ago) Hx Influenza Vaccination: No Hx Pneumococcal Vaccination: No - Home Medications Home Medications: Ambulatory Orders Medication Instructions Recorded Azithromycin [Zithromax] 500 mg PO DAILY #5 tab 06/12/18 Prednisone 10 mg PO DAILY #10 tab.ds.pk 06/15/18 Naproxen [Naprosyn] 500 mg PO Q12 PRN #14 tablet 07/29/18 Naproxen [Naprosyn] 500 mg PO Q12 #14 tab 08/24/18 Albuterol HFA [Ventolin HFA 90 1 - 2 puff IH Q4H PRN #1 bottle 09/08/18 mcg/actuation (8 g)] Azithromycin [Zithromax] 250 mg PO DAILY #6 tab 09/08/18 - Allergies Allergies/Adverse Reactions: Allergies Allergy/AdvReac Type Severity Reaction Status Date / Time No Known Allergies Allergy Verified 09/08/18 03:01 Review of Systems ROS Statement: Except As Marked, All Systems Reviewed And Found Negative ENT: Positive for: Nose Discharge, Nose Congestion Cardiovascular: Positive for: Chest Pain Respiratory: Positive for: Cough Physical Exam - Reviewed Nursing Documentation Reviewed: Yes Vital Signs Reviewed: Yes - Physical Exam Appears: Positive for: No Acute Distress (unkept, poor hygiene) Head Exam: Positive for: ATRAUMATIC, NORMOCEPHALIC Skin: Positive for: Normal Color, Warm, Dry Eye Exam: Positive for: Other (Surgical eye on the left) ENT: Positive for: Normal ENT Inspection Neck: Positive for: Normal, Painless ROM, Supple Cardiovascular/Chest: Positive for: Regular Rate, Rhythm. Negative for: Murmur Respiratory: Positive for: Rhonchi Gastrointestinal/Abdominal: Positive for: Normal Exam, Soft. Negative for: Tenderness Extremity: Positive for: Normal ROM. Negative for: Deformity Neurological/Psych: Positive for: Awake, Alert, Oriented (x3). Negative for: Motor/Sensory Deficits - ECG O2 Sat by Pulse Oximetry: 97 (RA) Pulse Ox Interpretation: Normal Medical Decision Making Medical Decision Making: Time: 0319 Plan: productive cough, rule out pneumonia, likely reactive airway disease -- CXR Two Vies -- Albuterol 0.083% 2.5 mg INH -- Peak Flow Pre/Post Tx Time: 0600 -- On re-evaluation, patient reports an improvement in symptoms. cxr appears negative for pneumonia on my view. Patient is stable for discharge home with a prescription of albuterol and z- pack. Patient to follow up with PMD for further management of pain ____ Scribe Attestation: Documented by Lex Boyer, acting as a scribe forNayely Gonzalez MD. Provider Scribe Attestation: All medical record entries made by the Scribe were at my direction and personally dictated by me. I have reviewed the chart and agree that the record accurately reflects my personal performance of the history, physical exam, medical decision making, and the department course for this patient. I have also personally directed, reviewed, and agree with the discharge instructions and disposition. Disposition - Clinical Impression Clinical Impression: Upper respiratory infection - Patient ED Disposition Is Patient to be Admitted: No Counseled Patient/Family Regarding: Studies Performed, Diagnosis, Need For Followup - Disposition Referrals: Dwayne Garrett MD [Primary Care Provider] - Disposition: Routine/Home Disposition Time: 06:00 Condition: IMPROVED Additional Instructions: follow up with your doctor in 1-2 days return to the ED with any worsening or concerning symptoms Prescriptions: Albuterol HFA [Ventolin HFA 90 mcg/actuation (8 g)] 1 - 2 puff IH Q4H PRN #1 bottle PRN Reason: Wheezing Azithromycin [Zithromax] 250 mg PO DAILY #6 tab Instructions: Viral Upper Respiratory Infection, Adult (DC) Forms: [employer] ([place])
[2018-09-08] MEDS ORDERED: Albuterol 0.083% Inhal Sol (2.5 mg/3 mL) UD ONE (03:42)
--- NOTE | 2018-09-08 10:11 | RAD ---
Date of service: 09/08/2018 HISTORY: cough COMPARISON: 08/23/2018 TECHNIQUE: Chest PA and lateral views FINDINGS: LUNGS: No active pulmonary disease. PLEURA: No significant pleural effusion identified. No pneumothorax apparent. CARDIOVASCULAR: No aortic atherosclerotic calcification present. Normal cardiac size. No pulmonary vascular congestion. OSSEOUS STRUCTURES: Right shoulder arthroplasty. VISUALIZED UPPER ABDOMEN: Normal. OTHER FINDINGS: None. IMPRESSION: No active disease.
== END 2018-09-08 06:42 | disposition home or self-care (01) ==
LOC: H.ER 02:51
DX: J06.9 Acute upper respiratory infection, unspecified (principal); I10 Essential (primary) hypertension; J44.9 Chronic obstructive pulmonary disease, unspecified; Z86.73 Personal history of transient ischemic attack (TIA), and cerebral infarction without residual deficits

== ENCOUNTER 2018-09-15 21:51 | Emergency (ER) | payer OTHER ==
[2018-09-15 21:52] VITALS: BMI 22.2
[2018-09-15 22:05] VITALS: TEMP 98.6
[2018-09-15] MEDS ORDERED: Albuterol-Ipratrop 3 mg / 0.5 (3 ml) UD IH STA ×2 (22:26→22:27)
--- NOTE | 2018-09-15 22:32 | ED PDOC ---
HPI: CCC, URI, Sore Throat Time Seen by Provider: 09/15/18 22:12 Chief Complaint (Nursing): Cough, Cold, Congestion Chief Complaint (Provider): cough History Per: Patient History/Exam Limitations: no limitations Onset/Duration Of Symptoms: Days (10) Current Symptoms Are (Timing): Still Present Associated Symptoms: Chills, Cough, Sputum, Nasal Congestion Additional Complaint(s): 68 y/o male presents for evaluation of cough and congestion x 10 days. Patient states cough productive of yellow sputum, with associated nasal congestion, chills and pain in chest when coughing. Patient states he was here last week for same but that he lost the prescriptions that were given to him upon discharge. Denies fever, ear pain, throat pain, shortness of breath, palpitations, recent travel, sick contacts PMD: none Past Medical History Vital Signs: Last Vital Signs Temp 98.6 F 09/15/18 22:00 Pulse 84 09/15/18 22:00 Resp 16 09/15/18 22:00 BP 135/79 09/15/18 22:00 Pulse Ox 96 09/15/18 22:00 Primary Care Provider: FAMILY PROVIDER,NO - Medical History PMH: Arthritis, Back Problems, Bronchitis, COPD, Fractures (left scapula/left ribs), Gall Bladder Disease, GERD, Hepatitis (C), HTN, Rheumatoid Arthritis, TIA, Chronic Pain Denies: CHF, HIV, Chronic Kidney Disease - Surgical History Surgical History: Cholecystectomy, Hernia Repair - Family History Family History: States: Unknown Family Hx - Social History Current smoker - smoking cessation education provided: Yes - Immunization History Hx Tetanus Toxoid Vaccination: Yes (more than 5 years ago) Hx Influenza Vaccination: No Hx Pneumococcal Vaccination: No - Home Medications Home Medications: Ambulatory Orders Medication Instructions Recorded Azithromycin [Zithromax] 500 mg PO DAILY #5 tab 06/12/18 Prednisone 10 mg PO DAILY #10 tab.ds.pk 06/15/18 Naproxen [Naprosyn] 500 mg PO Q12 PRN #14 tablet 07/29/18 Naproxen [Naprosyn] 500 mg PO Q12 #14 tab 08/24/18 Albuterol HFA [Ventolin HFA 90 1 - 2 puff IH Q4H PRN #1 bottle 09/08/18 mcg/actuation (8 g)] Azithromycin [Zithromax] 250 mg PO DAILY #6 tab 09/08/18 Albuterol HFA [Ventolin HFA 90 1 puff IH Q4 PRN #1 inh 09/16/18 mcg/actuation (8 g)] Azithromycin [Zithromax] 250 mg PO DAILY #1 packet 09/16/18 Guaifenesin [Mucinex] 1 - 2 tab PO Q12 PRN #20 tab.er.12h 09/16/18 predniSONE [Prednisone] 60 mg PO DAILY #12 tab 09/16/18 - Allergies Allergies/Adverse Reactions: Allergies Allergy/AdvReac Type Severity Reaction Status Date / Time No Known Allergies Allergy Verified 09/15/18 21:59 Review of Systems ROS Statement: Except As Marked, All Systems Reviewed And Found Negative ENT: Positive for: Nose Congestion Respiratory: Positive for: Cough, Sputum Physical Exam - Reviewed Nursing Documentation Reviewed: Yes Vital Signs Reviewed: Yes - Physical Exam Appears: Positive for: Well, Non-toxic, No Acute Distress Head Exam: Positive for: ATRAUMATIC, NORMAL INSPECTION, NORMOCEPHALIC Skin: Positive for: Normal Color ENT: Positive for: Nasal Congestion Cardiovascular/Chest: Positive for: Regular Rate, Rhythm Respiratory: Positive for: Decreased Breath Sounds Gastrointestinal/Abdominal: Positive for: Normal Exam Back: Positive for: Normal Inspection Extremity: Positive for: Normal ROM Neurological/Psych: Positive for: Awake, Alert, Oriented (x3) - Laboratory Results Result Diagrams: 09/15/18 23:17 09/15/18 23:17 - ECG O2 Sat by Pulse Oximetry: 96 - Radiology X-Ray: Viewed By Nc X-Ray Interpretation: No Acute Disease (no changes from 09/08 visit) - Progress ED Course And Treament: -cbc -cmp -influenza -vbg shock panel -blood cultures -duoneb x 2 -IV solumedrol On re-eval, patient sleeping; no distress noted Upon awakening states he feels better Patient educated on findings, discharged with rx Zpak, Prednisone, Albuterol HFA, Mucinex Stressed importance of filling prescriptions and following up with a primary doctor Return precautions given Disposition - Clinical Impression Clinical Impression: Bronchitis - Patient ED Disposition Is Patient to be Admitted: No Counseled Patient/Family Regarding: Studies Performed, Diagnosis, Need For Followup, Rx Given - Disposition Referrals: [facility] [Outside] Disposition: Routine/Home Disposition Time: 00:15 Condition: IMPROVED Prescriptions: Albuterol HFA [Ventolin HFA 90 mcg/actuation (8 g)] 1 puff IH Q4 PRN #1 inh PRN Reason: Wheezing Azithromycin [Zithromax] 250 mg PO DAILY #1 packet Guaifenesin [Mucinex] 1 - 2 tab PO Q12 PRN #20 tab.er.12h PRN Reason: congestion predniSONE [Prednisone] 60 mg PO DAILY #12 tab Instructions: Acute Bronchitis Forms: [facility] (Cuban)
[2018-09-15] MEDS ORDERED: Albuterol-Ipratrop 3 mg / 0.5 (3 ml) UD ONE (22:45)
[2018-09-15 23:20] LABS: VENOUS BLOOD GAS BASE EXCESS 1.9 mmol/L (0.0-2.0); VENOUS BLOOD GAS PCO2 41 mmHg (40-60); VENOUS BLOOD GAS PO2 26 mm/Hg (30-55); VENOUS BLOOD PH 7.42 (7.32-7.43)
[2018-09-15 23:27] LABS: BASO # 0.1 K/uL (0.0-0.2); BASO % 0.7 % (0.0-2.0); EOS # 0.1 K/uL (0.0-0.7); HEMOGLOBIN 12.5 g/dL (12.0-18.0); LYMPH # 1.7 K/uL (1.0-4.3); LYMPH % 22.4 % (20.0-40.0); MEAN CORPUSCULAR HEMOGLOBIN 33.4 pg (27.0-31.0); MEAN CORPUSCULAR HGB CONC 33.8 g/dL (33.0-37.0); MEAN PLATELET VOLUME 7.5 fl (7.2-11.7); MONO # 1.5 K/uL (0.0-0.8); MONO % 19.4 % (0.0-10.0); NEUT # 4.4 K/uL (1.8-7.0); NEUT % 56.5 % (50.0-75.0); NRBC % 0.1 % (0.0-0.0); RBC 3.73 Mil/uL (4.40-5.90); WHITE BLOOD COUNT 7.7 K/uL (4.8-10.8)
[2018-09-15 23:35] LABS: ALB/GLOB RATIO 0.9 (1.0-2.1); ALBUMIN 3.6 g/dL (3.5-5.0); ALT/SGPT 51 U/L (21-72); AST/SGOT 44 U/L (17-59); BLOOD UREA NITROGEN 20 mg/dl (9-20); CALCIUM 8.3 mg/dL (8.4-10.2); GFR NON-AFRICAN AMERICAN > 60
[2018-09-16 00:32] VITALS: BP 129/81; PULSE 93; RESP 18; O2SAT 95
--- NOTE | 2018-09-16 10:54 | CARD ---
APPROVED REPORT Date of service: 09/15/2018 EKG Measurement Heart [id number] <Conclusion> Sinus rhythm with premature atrial complexes Otherwise normal ECG
--- NOTE | 2018-09-16 11:21 | RAD ---
Date of service: 09/15/2018 HISTORY: cough COMPARISON: 09/08/2018 TECHNIQUE: Chest PA and lateral views FINDINGS: LUNGS: Bilateral hyperinflation consistent with background COPD. No interval consolidation seen. Minimal prominence to each bronchovascular coarse markings similar-chronicity here inferred. PLEURA: No significant pleural effusion identified. No pneumothorax apparent. CARDIOVASCULAR: No aortic atherosclerotic calcification present. Heart size top normal. No pulmonary vascular congestion. OSSEOUS STRUCTURES: Right shoulder clemencia arthroplasty prosthesis-appears grossly similar. The mid thoracic level mild anterior wedge like configuration is stable since 09/08/2018 but an interval change with the 05/31/2017 study. Interval mild compression deformity here is inferred. VISUALIZED UPPER ABDOMEN: Normal. OTHER FINDINGS: None. IMPRESSION: No interval consolidation seen. Chronic peribronchial thickening changes at both lung bases. Chronic inflammatory changes here inferred. Anterior mid thoracic level singular vertebral body anterior wedging-interval change since 2017 similar with 09/08/2018. Loss of height here is believed no greater than 25 percent
== END 2018-09-16 00:59 | disposition home or self-care (01) ==
LOC: H.ER 21:51
DX: J40 Bronchitis, not specified as acute or chronic (principal)
CPT/HCPCS: 71046; 80053; 82803; 85025; 87040; 87804; 93005; 94150; 94640; 96374; 99284; J2930